=== PATIENT | male | born 1935 | race Caucasian/White ===

== ENCOUNTER 2018-03-26 10:39 | Day surgery (SDC) | payer MEDICARE ==
[2018-03-24 09:45] VITALS: BMI 27.1
[~2018-03-26 10:39] MED LIST: ALPRAZolam 0.25 MG TAB PO PRN; ALPRAZolam 0.5 MG TAB PO PRN; ASPIRIN 325 MG TAB PO STA; ATORVASTATIN 80 MG TAB PO STA; NITROGLYCERIN SL TABS 0.4 MG TAB SUBLINGUAL PRN; SODIUM CHLORIDE 0.9% 1,000 ML in EMPTY BAG 1 BAG IV ONE
[2018-03-26 11:10] LABS: Glucose,Whole Blood 132 mg/dL (75-99)
[2018-03-26] MEDS ORDERED: LIDOCAINE 2% INJ 20 MG/ML (20 ML MDV) ONE (13:17)
[2018-03-26] MEDS ORDERED: fentaNYL (PF) 50 MCG/ML 2 ML AMP ONE (13:21)
[2018-03-26] MEDS ORDERED: diphenhydrAMINE 50 MG/ML 1 ML VIAL ONE (13:21)
[2018-03-26] MEDS ORDERED: VERAPAMIL 2.5 MG/ML 2 ML AMP ONE (13:21)
[2018-03-26] MEDS ORDERED: HEPARIN SODIUM 1,000 UN/ML (10ML VL) ONE (13:21)
[2018-03-26] MEDS ORDERED: fentaNYL (PF) 50 MCG/ML 2 ML AMP IVP ONE (13:30)
[2018-03-26] MEDS ORDERED: diphenhydrAMINE 50 MG/ML 1 ML VIAL IVP ONE (13:30)
[2018-03-26] MEDS: LIDOCAINE 2% INJ 20 MG/ML SQ ONE ×2 (13:32→14:10)
[2018-03-26] MEDS ORDERED: VERAPAMIL SYRINGE (5 MG/10 ML) INTRAARTER ONE (13:38)
[2018-03-26] MEDS ORDERED: HEPARIN SODIUM 1,000 UN/ML (10ML VL) IV ONE (13:47)
[2018-03-26] MEDS ORDERED: IOPAMIDOL-370 125ML BTL INJ ONE (14:41)
[2018-03-26] MEDS ORDERED: RX INFO: IV CONTRAST WAS GIVEN 1 EACH MISC MISCELLANE PRN (14:49)
[2018-03-26] MEDS ORDERED: LORATADINE-PSEUDOEPH 5-120 MG 1 EACH TAB.ER.12H PO PRN (14:50)
[2018-03-26] MEDS ORDERED: SODIUM CHLORIDE 0.9% 1,000 ML IV SCH (15:00)
--- NOTE | 2018-03-26 17:58 | CC ---
CARDIAC CATHETERIZATION REPORT Mr. Gonzalez is an 82-year-old male known history of hypertension, hyperlipidemia, diabetes mellitus, history of chronic persistent atrial fibrillation, who has been complaining of progressive symptoms of dyspnea on exertion as well as chest discomfort. In view of that, recommendation made regarding cardiac catheterization. The procedures, risks and complication were discussed with the patient who is in full understanding and agreement. PROCEDURE: Patient was brought to the phlebotomy lab assistant in a fasting state after receiving fentanyl Benadryl and achieving moderate conscious sedated state. Using Xylocaine anesthesia and Seldinger technique, a 6-[place] sheath was introduced in the left radial artery. Right coronary angiography performed using care 5-[place] 4 bend right Amalia catheter. Images of the right coronary artery were performed. Multiple attempts to cannulate the left main using a 5-[place] 4 bend, a 6-[place] Humphrey, 6-[place] Nilda catheters were unsuccessful because of tortuosity at that point. Using Xylocaine anesthesia and Seldinger technique, a 6-[place] sheath was introduced in the right femoral artery. Attempts to selectively cannulate the left main using left Amalia 4.5, EBU 3.75 and EBU 4 were unsuccessful in selectively cannulating the left main, but were able to get the subselective images after and multiple images of the coronary arteries were obtained. Following that, catheter and sheath were removed. Hemostasis was obtained with deployment of an Angio-Seal in the right femoral artery and TR band on the left radial artery. The patient received 4500 units of intravenous heparin as well as intra- arterial verapamil. Of note, the patient had no chest discomfort. FINDINGS: 1. FLUOROSCOPY: There was severe calcification involving all the coronary arteries. 2. Left main: This is a large-sized vessel bifurcating left circumflex and left anterior descending artery. Left main coronary artery has no evidence of high-grade stenosis. 3. Left anterior descending artery: This is a large-sized vessel reaching to the apex with a wraparound apex segment with sub selectively cannulated, has intimal disease in mid segment of 30% to 40%. The rest of the vessel has no high-grade stenosis. 4. Left circumflex: This is a heavily calcified vessel giving rise to a large obtuse marginal branch. The vessel has intimal disease although was not selectively cannulated. 5. The right coronary artery: This vessel is heavily calcified. Totally occluded proximally with no significant antegrade flow. There are collaterals to the right coronary artery from the left coronary system as well as from the right coronary system. 6. LEFT VENTRICULOGRAM: Left ventriculogram was not performed. CONCLUSION: 1. Severely calcified coronary arteries. 2. Totally occluded right coronary artery, chronic. 3. Mild disease of the LAD and the left circumflex. RECOMMENDATION: The patient will continue medical therapy with aggressive coronary risk factor modifications. Depending on his progress, further recommendation will be made. Those findings and recommendation were discussed with the patient his family who are in full understanding and agreement. DURATION OF THE PROCEDURE: 72 minutes. MMJIMBOL / IJN: [id number] /
--- NOTE | 2018-03-26 18:04 | LTR ---
March 26, [address] Myers: I had the pleasure of performing cardiac catheterization on Mr. Gonzalez at [facility] on March 26 and full copy of procedure note will be forwarded to you. In brief, he was found to have a chronic occluded right coronary artery with [id number]-[id number] disease in the left coronary system. At this time, I will continue medical therapy with aggressive coronary risk modification being initiated. Thank you again for allowing me to participate in his care. Please feel free to call for any questions. Sincerely, SIMON / TRUONGN: [id number] /
[2018-03-26] MEDS ORDERED: DIGOXIN 125 MCG TAB PO SCH (18:30)
[2018-03-26] MEDS: CARVEDILOL 12.5 MG TAB PO SCH (20:20)
[2018-03-26] MEDS ORDERED: ATORVASTATIN 20 MG TAB PO SCH (21:00)
[2018-03-27 07:45] VITALS: BP 125/79; PULSE 76; RESP 16; TEMP 98.3
[2018-03-27] MEDS: CARVEDILOL 12.5 MG TAB PO SCH (08:11)
--- NOTE | 2018-03-27 08:38 | PN ---
PROGRESS NOTE Mr. Gonzalez is an 82-year-old male with known history of chronic atrial fibrillation, hypertension, hyperlipidemia, who presented with symptoms of chest discomfort, underwent cardiac catheterization that revealed severely calcified coronary arteries. There was difficulty selectively cannulating the left main, but there was a totally occluded right coronary artery with [id number] disease in the LAD and left circumflex. He was not discharged home yesterday because of some bleeding from the right groin. He is doing well this morning, denying any chest pain. No dizziness. No palpitation. He denies any nausea. He continued to be on Lipitor 20 mg daily, Coreg 25 mg twice a day, digoxin 0.125 mg daily, lisinopril 5 mg daily. PHYSICAL EXAMINATION: Blood pressure 125/70 with a heart rate in the 60s. LUNGS: Clear. HEART: Irregular, regular, S1, S2. No S3, no rub with a systolic murmur. ABDOMEN: Soft, nontender. Right groin, no hematoma. Left radial pulse intact. IMPRESSION: 1. Coronary artery disease with chronically occluded right coronary artery with calcified coronary arteries and mild to moderate disease in the LAD and the left circumflex. 2. Chronic atrial fibrillation. 3. Hypertension. 4. Hyperlipidemia. 5. Diabetes mellitus. RECOMMENDATION: Patient should be able to be discharged home today and followed as an outpatient. I will add to his regimen, isosorbide mononitrate, and he will resume his metformin in 48 hours. MMODL / IJN: [id number] /
[2018-03-27] MEDS ORDERED: LISINOPRIL 5 MG TAB PO SCH (09:00)
== END 2018-03-27 11:39 | disposition home or self-care (01) ==
LOC: CATHCVL 10:39 → 3OBS 14:36 → CATHCVL 03-27 11:39
PROVIDERS: ATTEND Internal Medicine Interventional Cardiology
DX: I25.110 Atherosclerotic heart disease of native coronary artery with unstable angina pectoris (principal); I25.82 Chronic total occlusion of coronary artery; I97.610 Postprocedural hemorrhage of a circulatory system organ or structure following a cardiac catheterization; I48.2 Chronic atrial fibrillation; E78.00 Pure hypercholesterolemia, unspecified; I10 Essential (primary) hypertension; E11.9 Type 2 diabetes mellitus without complications; Z82.49 Family history of ischemic heart disease and other diseases of the circulatory system; Z87.891 Personal history of nicotine dependence; Z79.01 Long term (current) use of anticoagulants; Z79.84 Long term (current) use of oral hypoglycemic drugs; Z79.899 Other long term (current) drug therapy
CPT/HCPCS: 93454; C1760; C1769 ×3; C1887 ×2; C1894 ×2; J2001; J1200; J3010; J1644; Q9967

== ENCOUNTER → 2018-05-29 | Outpatient (CLI) | payer MEDICARE ==
--- NOTE | 2018-05-29 15:33 | US ---
EXAMINATION TYPE: US carotid duplex BILAT DATE OF EXAM: 05/29/2018 COMPARISON: NONE CLINICAL HISTORY: G45.3 Amaurosis fugax. Left eye vision loss x 3 weeks ago for 30 minutes. No hx of tia. No HTN. EXAM MEASUREMENTS: RIGHT: Peak Systolic Velocity (PSV) cm/sec ----- Right CCA: 56.7 ----- Right ICA: 48.4 ----- Right ECA: 113.5 ICA/CCA ratio: 0.9 RIGHT: End Diastole cm/sec ----- Right CCA: 10.4 ----- Right ICA: 13.5 ----- Right ECA: 0.0 LEFT: Peak Systolic Velocity (PSV) cm/sec ----- Left CCA: 63.4 ----- Left ICA: 51.4 ----- Left ECA: 81.4 ICA/CCA ratio: 0.8 LEFT: End Diastole cm/sec ----- Left CCA: 11.9 ----- Left ICA: 15.6 ----- Left ECA: 2.1 VERTEBRALS (direction of flow): Right Vertebral: Antegrade Left Vertebral: Antegrade Rhythm: Arrhythmia Grayscale images show mild to moderate eccentric plaque centered at right carotid bulb level. There i s more moderate eccentric plaque at left carotid bulb level. Velocity measurements and ratios in visu alized portion of both internal carotid arteries however remains within normal limits. IMPRESSION: Moderate atherosclerotic change bilaterally, left greater than right, without hemodynamic ally significant stenosis clearly seen in either internal carotid artery
== END | disposition home or self-care (01) ==
LOC: RADUSWWP 14:35
PROVIDERS: ATTEND Family Medicine
DX: I65.23 Occlusion and stenosis of bilateral carotid arteries (principal)
CPT/HCPCS: 93880

== ENCOUNTER → 2019-07-22 | Outpatient (CLI) | payer MEDICARE ==
--- NOTE | 2019-07-22 14:24 | US ---
EXAMINATION TYPE: US carotid duplex BILAT DATE OF EXAM: 07/22/2019 COMPARISON: US CLINICAL HISTORY: I65.29 OCCLUSION AND STENOSIS OF CAROTID ARTERY; prior smoker 60years ago EXAM MEASUREMENTS: RIGHT: Peak Systolic Velocity (PSV) cm/sec ----- Right CCA: 51.2 ----- Right ICA: 45.9 ----- Right ECA: 160.9 ICA/CCA ratio: 0.9 RIGHT: End Diastole cm/sec ----- Right CCA: 5.8 ----- Right ICA: 10.1 ----- Right ECA: 0.0 LEFT: Peak Systolic Velocity (PSV) cm/sec ----- Left CCA: 62.7 ----- Left ICA: 51.3 ----- Left ECA: 133.5 ICA/CCA ratio: 0.8 LEFT: End Diastole cm/sec ----- Left CCA: 14.7 ----- Left ICA: 16.1 ----- Left ECA: 0.0 VERTEBRALS (direction of flow): Right Vertebral: Antegrade Left Vertebral: Antegrade Rhythm: Arrhythmia Irregular mixed plaque is noted in bilateral CCA, ECA and ICA with abnormally elevated PSV in bilater al ECA. IMPRESSION: 1. There is a irregular mixed plaque noted within the bilateral common carotid and ICAs with no defin ite significant hemodynamic stenosis by carotid Doppler ultrasound. Stenosis involving the external c arotid artery bilaterally suspected. 2. Correlate for cardiac dysrhythmia. Criteria for Assigning % of Stenosis / Diameter reduction (Estimation based on the indirect measurements of the internal carotid artery velocities (ICA PSV). 1. Normal (no stenosis)=ICA PSV < 125 cm/s: ratio < 2.0: ICA EDV<40 cm/s. 2. Less than 50% stenosis=ICA PSV < 125 cm/s: ratio < 2.0: ICA EDV<40 cm/s. 3. 50 to 69% stenosis=ICA PSV of 125 to 230 cm/s: ration 2.0 ? 4.0: ICA EDV 40-100 cm/s. 4. Greater than 70% stenosis to near occlusion= ICA PSV > 230 cm/s: ratio > 4.0: ICA EDV > 100 cm/s. 5. Near occlusion= ICA PSV velocities may be low or undetectable: variable ratio and ICA EDV. 6. Total occlusion=unable to detect flow.
== END | disposition home or self-care (01) ==
LOC: RADUSWWP 13:23
PROVIDERS: ATTEND Family Medicine
DX: I77.89 Other specified disorders of arteries and arterioles (principal)
CPT/HCPCS: 93880

== ENCOUNTER → 2020-01-18 | Outpatient (CLI) | payer MEDICARE ==
--- NOTE | 2020-01-18 15:45 | CT ---
EXAMINATION TYPE: CT chest wo con DATE OF EXAM: 01/18/2020 COMPARISON: NONE HISTORY: Other specified symptoms and signs involving circulatory & respiratory systems CT DLP: 371.80 mGycm. Automated Exposure Control for Dose Reduction was Utilized. TECHNIQUE: CT scan of the thorax is performed without IV contrast. FINDINGS: LUNGS: There is peripheral reticulation and fibrosis seen bilaterally with more diffuse fibrotic bob ges in the lower lungs near diaphragm as there are some areas of honeycombing identified. No bronchie ctatic change. There is occasional scattered thin-walled cyst most prominent in the bases. No pleural effusion or pneumothorax. No suspicious consolidation. MEDIASTINUM: Lack of IV contrast is noted to limit evaluation for mediastinal and especially hilar ad enopathy. There are no definitive greater than 1 cm hilar or mediastinal lymph nodes. Cardiomegaly. T iny pericardial effusion. Severe three-vessel coronary artery calcification and/or stents, correlate clinically. Enlarged pulmonary arteries, CT findings consistent with underlying pulmonary hypertensio n. OTHER: Severe multilevel anterior and lateral spurring in the spine could reflect DISH. IMPRESSION: Moderate to severe bilateral pulmonary fibrotic changes greatest in the lower lungs near diaphragm. Correlate for possible IPF. Background cardiomegaly and pulmonary artery hypertension.
== END | disposition home or self-care (01) ==
LOC: RADCTMAIN 13:06
PROVIDERS: ATTEND Internal Medicine
DX: J84.10 Pulmonary fibrosis, unspecified (principal); I51.7 Cardiomegaly; I27.21 Secondary pulmonary arterial hypertension; Z91.041 Radiographic dye allergy status
CPT/HCPCS: 71250

== ENCOUNTER → 2020-04-08 | Outpatient (CLI) | payer MEDICARE ==
--- NOTE | 2020-04-08 15:12 | MR ---
EXAMINATION TYPE: MR brain wo/w con DATE OF EXAM: 04/08/2020 COMPARISON: None HISTORY: Memory loss CONTRAST: Performed utilizing 9 mL intravenous Gadavist gadolinium contrast. TECHNIQUE: Multiplanar, multiecho imaging on a 3.0 Lurdes magnet is performed through the brain. Stud y is performed within 24 hours of arrival to the hospital. The craniovertebral junction is normal. The pituitary is normal. Diffusion-weighted imaging is performed. No abnormal hyperintensity is present to suggest an acute i ntracranial infarct or acute ischemic change. Patchy periventricular white matter hyperintensities are present, likely on the basis of chronic whit e matter ischemic changes. Ventricles and sulci are prominent for the patient age. No suspicious enhancement is evident. IMPRESSIONS: 1. Atrophy with multiple scattered periventricular white matter ischemic type changes.
== END | disposition home or self-care (01) ==
LOC: RADMRIMAIN 14:03
PROVIDERS: ATTEND Psychiatry & Neurology Neurology
DX: G31.9 Degenerative disease of nervous system, unspecified (principal); I67.82 Cerebral ischemia; R90.89 Other abnormal findings on diagnostic imaging of central nervous system; R41.3 Other amnesia
CPT/HCPCS: 70553; A9585

== ENCOUNTER 2020-05-29 17:38 | Inpatient (IN) | payer MEDICARE ==
[2020-05-29] MEDS ORDERED: NITROGLYCERIN SL TABS 0.4 MG TAB SUBLINGUAL PRN (18:03)
[2020-05-29] MEDS ORDERED: MORPHINE SULFATE 4 MG/ML SYRINGE IV PRN (18:12)
--- NOTE | 2020-05-29 18:19 | ED ---
SOB HPI - General Chief Complaint: Shortness of Breath Stated Complaint: Chest pain Time Seen by Provider: 05/29/20 17:54 Source: patient, RN notes reviewed, old records reviewed Mode of arrival: ambulatory Limitations: no limitations - History of Present Illness Initial Comments: This is a 84-year-old male DF for evaluation patient Dese for chest pain shortness of breath. Patient drove himself to Hospital of being seen at the facility earlier in the day. Patient having persistent shortness of breath here in the ER history of heart disease history of a fibrillation he is on anticoagulation. MD Complaint: shortness of breath, chest pain -: days(s) Severity: moderate Severity scale (1-10): 5 Quality: aching Consistency: constant Improves With: nothing Worsens With: nothing Known History Of: congestive heart failure Context: recent URI Associated Symptoms: chest pain, pain with inspiration, cough Treatments Prior to Arrival: none - Related Data Home Medications Medication Instructions Recorded Confirmed Atorvastatin [Lipitor] 20 mg PO HS 03/24/18 03/26/18 Carvedilol 25 mg PO BID 03/24/18 03/26/18 Digoxin [Digitek] 125 mcg PO PC-SUPPER 03/24/18 03/26/18 Lisinopril [Zestril] 5 mg PO DAILY 03/24/18 03/26/18 Loratadine-Pseudoeph 10-240 mg 1 each PO DAILY PRN 03/24/18 03/24/18 [Claritin-D 24 Hr] Rivaroxaban [Xarelto] 15 mg PO PC-SUPPER 03/24/18 03/24/18 Aubrey Hineso(Dose Unknown) 1 tab PO BID 03/24/18 03/26/18 metFORMIN HCL [Glucophage] 850 mg PO BID 03/24/18 03/24/18 Allergies Allergy/AdvReac Type Severity Reaction Status Date / Time iodine Allergy Rash/Hives Verified 05/29/20 17:48 Review of Systems ROS Statement: Those systems with pertinent positive or pertinent negative responses have been documented in the HPI. ROS Other: All systems not noted in ROS Statement are negative. Past Medical History Past Medical History: Atrial Fibrillation, Cancer, Chest Pain / Angina, Diabetes Mellitus, GI Bleed, Hyperlipidemia, Hypertension, Myocardial Infarction (OR), Osteoarthritis (OA) Additional Past Medical History / Comment(s): irregular heartbeat, hayfever, hx bleeding ulcers, skin cancer History of Any Multi-Drug Resistant Organisms: None Reported Past Surgical History: Heart Catheterization, Orthopedic Surgery, Tonsillectomy Additional Past Surgical History / Comment(s): skin cancer removed from face and scalp, surgery on rt arm and left leg after injury age 11, kat cataracts, heart cath 03/26/18 Past Anesthesia/Blood Transfusion Reactions: No Reported Reaction Past Psychological History: No Psychological Hx Reported Smoking Status: Former smoker Past Alcohol Use History: Rare Past Drug Use History: None Reported - Past Family History Mother Family Medical History: No Reported History General Exam Limitations: no limitations General appearance: alert, in no apparent distress Head exam: Present: atraumatic, normocephalic, normal inspection Eye exam: Present: normal appearance, PERRL, EOMI. Absent: scleral icterus, conjunctival injection, periorbital swelling ENT exam: Present: normal exam, mucous membranes moist Neck exam: Present: normal inspection. Absent: tenderness, meningismus, lymphadenopathy Respiratory exam: Present: normal lung sounds bilaterally. Absent: respiratory distress, wheezes, rales, rhonchi, stridor Cardiovascular Exam: Present: normal rhythm, bradycardia, normal heart sounds. Absent: systolic murmur, diastolic murmur, rubs, gallop, clicks GI/Abdominal exam: Present: soft, normal bowel sounds. Absent: distended, tenderness, guarding, rebound, rigid Extremities exam: Present: normal inspection, full ROM, normal capillary refill. Absent: tenderness, pedal edema, joint swelling, calf tenderness Back exam: Present: normal inspection Neurological exam: Present: alert, oriented X3, CN II-XII intact Psychiatric exam: Present: normal affect, normal mood Skin exam: Present: warm, dry, intact, normal color. Absent: rash Course Vital Signs 05/29/20 05/29/20 17:45 18:12 Temperature 97.7 F Pulse Rate 49 L 50 L Respiratory 20 18 Rate Blood Pressure 114/59 121/84 O2 Sat by Pulse 97 98 Oximetry - Reevaluation(s) Reevaluation #1: 05/29/20 18:18 Medical records reviewed Reevaluation #2: 05/29/20 18:18 Spoke with patient stock Another Facility regarding Findings and Evaluation - Consultations Consultation #1: spoke w Dr. Encinas who agrees to admit patient Medical Decision Making - Medical Decision Making 84 male DF for chest pain, patient was seen in her prior episode earlier in the day drove himself our facility for further cardiac evaluation. Patient troponin of point to another facility patient is on anticoagulation, will admit for cardiac evaluation and treatment - EKG Data -: EKG Interpreted by Me (EKG is A. fib with a 56 QRS 104 QTC 418) Critical Care Time Critical Care Time: Yes Total Critical Care Time: 31 Disposition Clinical Impression: Acute pulmonary edema, Congestive heart failure, Chest pain Disposition: ADMITTED IP TO THIS HOSP Condition: Fair Is patient prescribed a controlled substance at d/c from ED?: No Referrals: Rad Mar MD [Primary Care Provider] - 1-2 days
[2020-05-29 18:33] LABS: Basophils % (A) 1 %; Eosinophils # (A) 0.2 k/uL (0-0.7); Eosinophils % (A) 3 %; HCT 39.3 % (39.0-53.0); HGB 12.7 gm/dL (13.0-17.5); Lymphocytes # (A) 1.4 k/uL (1.0-4.8); Lymphocytes % (A) 24 %; MCH 31.1 pg (25.0-35.0); MCHC 32.2 g/dL (31.0-37.0); MCV 96.5 fL (80.0-100.0); Mean Platelet Volume 7.6; Monocytes # (A) 0.4 k/uL (0-1.0); Monocytes % (A) 6 %; Neutrophils # (A) 3.6 k/uL (1.3-7.7); Neutrophils % (A) 65 %; Platelet Count 121 k/uL (150-450); RBC 4.07 m/uL (4.30-5.90); RDW 13.4 % (11.5-15.5); WBC 5.6 k/uL (3.8-10.6)
[2020-05-29 18:42] LABS: ALT 29 U/L (4-49); AST 34 U/L (17-59); African American GFR (CKD) >90 (>60 ml/min/1.73 sqM); Albumin 4.1 g/dL (3.5-5.0); Alkaline Phosphatase 49 U/L (38-126); Anion Gap 9 mmol/L; Blood Urea Nitrogen 22 mg/dL (9-20); Carbon Dioxide 26 mmol/L (22-30); Chloride 101 mmol/L (98-107); Creatine Kinase 85 U/L (55-170); Glucose 168 mg/dL (74-99); Magnesium 1.7 mg/dL (1.6-2.3); Non-African American GFR(CKD) 90 (>60 ml/min/1.73 sqM); Potassium 4.4 mmol/L (3.5-5.1); Sodium 136 mmol/L (137-145); Total Bilirubin 1.6 mg/dL (0.2-1.3)
[2020-05-29 18:43] LABS: INR 1.2 (<1.2); Partial Thromboplastin Time 28.6 sec (22.0-30.0); Prothrombin Time 12.4 sec (9.0-12.0)
--- NOTE | 2020-05-29 19:05 | XR ---
EXAMINATION TYPE: XR chest 1V portable DATE OF EXAM: 05/29/2020 COMPARISON: NONE HISTORY: Chest pain TECHNIQUE: Single view FINDINGS: Heart is enlarged. There is pulmonary vascular congestion and interstitial edema. There is poor inspiration. There are chest leads. Thoracic aorta is atheromatous. IMPRESSION: Congestive heart failure with some pulmonary interstitial edema.
[2020-05-29] MEDS ORDERED: HEPARIN SOD,PORK IN 0.45% NACL 25,000 UNIT in 0.45% NACL 1 250ML.BAG IV SCH (21:45)
[2020-05-29] MEDS ORDERED: HEPARIN SODIUM,PORCINE 5,000 UNIT/ML 1 ML VIAL IV PRN (21:45)
[2020-05-29] MEDS ORDERED: HEPARIN SODIUM,PORCINE 5,000 UNIT/ML 1 ML VIAL IV ONE (21:45)
[2020-05-29] MEDS ORDERED: PANTOPRAZOLE 40 MG TABLET PO PRN (22:00)
[2020-05-29] MEDS ORDERED: DIGOXIN 125 MCG TAB PO SCH (22:00)
[2020-05-29] MEDS: carvediloL 12.5 MG TAB PO SCH (22:08)
[2020-05-29] MEDS: ATORVASTATIN 20 MG TAB PO SCH (22:09)
[2020-05-30 03:39] LABS: Basophils # (A) 0.1 k/uL (0-0.2); Basophils % (A) 1 %; Eosinophils # (A) 0.2 k/uL (0-0.7); Eosinophils % (A) 3 %; HCT 38.4 % (39.0-53.0); HGB 12.3 gm/dL (13.0-17.5); Lymphocytes # (A) 1.7 k/uL (1.0-4.8); Lymphocytes % (A) 30 %; MCH 30.6 pg (25.0-35.0); MCV 95.7 fL (80.0-100.0); Mean Platelet Volume 7.7; Monocytes # (A) 0.4 k/uL (0-1.0); Monocytes % (A) 7 %; Neutrophils # (A) 3.3 k/uL (1.3-7.7); Neutrophils % (A) 58 %; Platelet Count 122 k/uL (150-450); RBC 4.02 m/uL (4.30-5.90); RDW 13.4 % (11.5-15.5); WBC 5.7 k/uL (3.8-10.6)
[2020-05-30 06:08] LABS: Cholesterol 114 mg/dL (<200); HDL Cholesterol 33 mg/dL (40-60); LDL Cholesterol,Calculated 71 mg/dL (0-99); Triglycerides 49 mg/dL (<150)
[2020-05-30 06:09] LABS: Glucose,Whole Blood 122 mg/dL (75-99)
--- NOTE | 2020-05-30 07:21 | XR ---
EXAMINATION TYPE: XR chest 2V DATE OF EXAM: 05/30/2020 COMPARISON: 05/29/2020 HISTORY: Shortness of breath TECHNIQUE: Frontal and lateral views of the chest are obtained. FINDINGS: Scattered senescent parenchymal changes noted. Hyperinflation compatible with COPD. Cardiomegaly without pulmonary venous congestion and interstitial edema. Overall appearance is unchan ged. Mediastinal structures are stable and grossly unremarkable. No evidence for hilar prominence. Degenerative changes dorsal spine. IMPRESSION: 1. Cardiomegaly without pulmonary venous congestion and interstitial edema. Overall appearance is unc hanged.
[2020-05-30] MEDS ORDERED: ASPIRIN 325 MG TAB PO SCH (09:00)
[2020-05-30] MEDS ORDERED: SODIUM CHLORIDE 0.9% 1,000 ML in EMPTY BAG 1 BAG IV ONE (09:10)
[2020-05-30] MEDS ORDERED: ALPRAZolam 0.25 MG TAB PO PRN (09:10)
[2020-05-30] MEDS ORDERED: diphenhydrAMINE 50 MG/ML 1 ML VIAL IVP STA (09:11)
[2020-05-30] MEDS ORDERED: methylPREDNISolone SOD SUCCI 125 MG/2 ML VIAL IV STA (09:11)
[2020-05-30] MEDS ORDERED: FAMOTIDINE 20 MG/2 ML VIAL IV STA (09:11)
[2020-05-30] MEDS ORDERED: ASPIRIN 81 MG PO SCH (09:15)
[2020-05-30] MEDS ORDERED: ASPIRIN 325 MG TAB PO ONE (09:15)
--- NOTE | 2020-05-30 09:24 | ECHOF ---
Referral Reason:elevTrop MEASUREMENTS -------- HEIGHT: 180.3 cm WEIGHT: 91.6 kg BP: 121/60 RVIDd: 4.4 cm (< 3.3) IVSd: 1.3 cm (0.6 - 1.1) LVIDd: 5.7 cm (3.9 - 5.3) LVPWd: 1.8 cm (0.6 - 1.1) IVSs: 1.7 cm LVIDs: 3.8 cm LVPWs: 2.1 cm LAESV Index (A-L): 72.68 ml/m Ao Diam: 3.7 cm (2.0 - 3.7) AV Cusp: 2.5 cm (1.5 - 2.6) MV EXCURSION: 27.766 mm (> 18.000) MV EF SLOPE: 171 mm/s (70 - 150) EPSS: 1.2 cm AR PHT: 442 ms RAP: 20.00 mmHg RVSP: 90.24 mmHg FINDINGS -------- This was a technically adequate study. The left ventricular size is normal. There is moderate concentric left ventricular hypertrophy. T here is moderate global hypokinesis of LV . Overall left ventricular systolic function is mild-mode rately impaired with, an EF between 40 - 45 %. The right ventricle is severely enlarged. LA is severely dilated >40 ml/m2 The right atrium is markedly enlarged. Interatrial and interventricular septum intact. There is mild aortic valve sclerosis. There is mild aortic regurgitation. Mild mitral annular calcification present. Atbzzdlf-av-ohbond mitral regurgitation is present. Severe tricuspid regurgitation present. There is severe pulmonary hypertension. The right ventric ular systolic pressure, as measured by Doppler, is 90.24mmHg. Trace/mild (physiologic) pulmonic regurgitation. The aortic root size is normal. The inferior vena cava is dilated with poor inspiratory collapse which is consistent with estimated r ight atrial pressure of 20 mmHg. There is no pericardial effusion. CONCLUSIONS -------- 1. There is moderate concentric left ventricular hypertrophy. 2. There is moderate global hypokinesis of LV . 3. Overall left ventricular systolic function is mild-moderately impaired with, an EF between 40 - 45 %. 4. The right ventricle is severely enlarged. 5. LA is severely dilated >40 ml/m2 6. The right atrium is markedly enlarged. 7. There is mild aortic valve sclerosis. 8. There is mild aortic regurgitation. 9. Mild mitral annular calcification present. 10. Uqgqkcyu-fu-bhvhyh mitral regurgitation is present. 11. Severe tricuspid regurgitation present. 12. There is severe pulmonary hypertension. 13. Trace/mild (physiologic) pulmonic regurgitation. 14. The inferior vena cava is dilated with poor inspiratory collapse which is consistent with estimat ed right atrial pressure of 20 mmHg. 15. There is no pericardial effusion. SALT MANAGER: Lauren Steen RDCS
[2020-05-30] MEDS ORDERED: ASPIRIN 81 MG PO ONE (10:30)
[2020-05-30] MEDS: carvediloL 12.5 MG TAB PO SCH ×2 (10:43→20:53)
[2020-05-30] MEDS: ISOSORBIDE MONONITRATE ER 60 MG TAB.ER.24H PO SCH (10:43)
[2020-05-30] MEDS: lisinopriL 5 MG TAB PO SCH (10:44)
[2020-05-30] MEDS: SODIUM CHLORIDE 0.9% 1,000 ML IV SCH ×2 (10:48→20:55)
[2020-05-30 11:42] LABS: Glucose,Whole Blood 178 mg/dL (75-99)
--- NOTE | 2020-05-30 15:04 | CONS ---
CONSULTATION Lebron Gonzalez is a gentleman with a known history of CAD, known RCA occlusion, calcified coronaries, also has pulmonary fibrosis and he sees Dr. Rivera from a cardiac standpoint and Dr. Singletary from his primary care standpoint. This gentleman came into the hospital after having episodes of chest pain requiring 3-4 nitroglycerin. At the time of my evaluation, she is resting comfortably. His troponin is elevated suggestive of myocardial injury. EKG revealed atrial fibrillation, chronic with a nonspecific ST and T-wave changes. At the time of my evaluation, he is resting comfortably without any significant symptoms. His echo revealed normal global decrease in contractility, estimated ejection fraction of 45% range. He has significant severe pulmonary hypertension and underlying pulmonary fibrosis. This patient has known CAD, underwent cardiac cath by Dr. Rivera 2 years ago. PHYSICAL EXAMINATION: On examination, blood pressure is 120/70, pulse rate is 68 per minute, regular. HEENT: Unremarkable. Fundus was not examined by me. NECK: Supple, there is JVD of 1 cm. No carotid bruit. HEART: Exam reveals S1, S2 with a regular rhythm, short systolic murmur. Lungs reveal diminished air entry. Abdomen is soft, nontender. Lower extremities reveal normal pulses. No edema. Central nervous system is normal. EKG revealed atrial fib, nonspecific ST changes, controlled rate. IMPRESSION: 1. Chronic atrial fibrillation. 2. CAD, known RCA occlusion, calcified coronary arteries. 3. Non ST elevation HI with a troponin level of 1.175. 4. Pulmonary fibrosis. 5. Hypertension. 6. Hyperlipidemia. RECOMMENDATIONS: I am recommending that we discontinue digoxin, decrease aspirin to 81 mg daily. Recommend coronary angiography and I will speak to Dr. Rivera regarding cardiac cath to be done either today or tomorrow. Since patient's arrival, his Xarelto has been held and he has been on IV heparin. The patient also has underlying type 2 diabetes, which is under fair control. Hopefully, patient will have coronary angiography as of today or tomorrow. Based on finding, further recommendations. For now we will continue current medical regimen. MMODL / IJN: [id number] /
--- NOTE | 2020-05-30 15:14 | P.HPIM ---
History of Present Illness H&P Date: 05/30/20 Chief Complaint: Chest pain Patient is a 84-year-old male with a known history of paroxysmal atrial fibrillation, hypertension, hyperlipidemia, diabetes type 2 [id number] endent, history of NJ and prior cardiac catheterization without PCI in 2018 came to ER with complaints of chest pain retrosternal associated with shortness of breath. Patient has been having on and off chest pains lasting few seconds for a long time and had a prior cardiac catheterization. Yesterday while he was driving patient developed chest pain associated with shortness of breath. Chest pain is mainly squeezing type and without radiation. Patient developed short of breath which has been worsening which made him come to ER. No nausea vomiting or diaphoresis. No headache or dizziness or lightheadedness. Chest x-ray showed congestive heart failure with some pulmonary interstitial mik ma. EKG showed atrial fibrillation with slow ventricular response. Laboratory data showed RBC 5.6, hemoglobin 12.7, INR 1.2, sodium 136, potassium 4.4, BUN 22 and creatinine 2.64 Bilirubin is 1.6 total Troponin 0.184, 0.175 ProBNP 3780 Liver enzymes are within normal limits. LDL 71 2-D echocardiogram showed moderate concentric left ventricle is hypertrophic. Systolic function left ventricular with ejection fraction 40-45%. LA is severely dilated. Moderate to severe mitral regurgitation. Severe tricuspid regurgitation. Severe pulmonary hypertension. No pericardial effusion. Review of Systems Constitutional: Patient denies any fever or chills . No generalized weakness or weight loss. Abdomen: Patient denied nausea vomiting and diarrhea and abdominal pain. Cardiovascular: Patient does have chest pain with shortness of breath. no palp itations. Respiratory: patient denied any cough is from production. No shortness of breath Neurologic: Patient denied any numbness or tingling headache. Musculoskeletal: Patient denies any complaints of joint swelling or deformity. Skin: Negative Psychiatric: Negative Endocrine: No heat or cold intolerance. No recent weight gain. Genitourinary: No dysuria or hematuria. All other 14 point ROS negative except the above Past Medical History Past Medical History: Atrial Fibrillation, Cancer, Chest Pain / Angina, Diabetes Mellitus, GI Bleed, Hyperlipidemia, Hypertension, Myocardial Infarction (NJ), Osteoarthritis (OA) Additional Past Medical History / Comment(s): irregular heartbeat, hayfever, hx bleeding ulcers, skin cancer Last Myocardial Infarction Date:: unsure History of Any Multi-Drug Resistant Organisms: None Reported Past Surgical History: Heart Catheterization, Orthopedic Surgery, Tonsillectomy Additional Past Surgical History / Comment(s): skin cancer removed from face and scalp, surgery on rt arm and left leg after injury age 11, kat cataracts, heart cath 03/26/18 Past Anesthesia/Blood Transfusion Reactions: No Reported Reaction Past Psychological History: No Psychological Hx Reported Smoking Status: Former smoker Past Alcohol Use History: Rare Additional Past Alcohol Use History / Comment(s): quit smoking 60 yrs ago, smoked from age 14 to early 60's, 1 PPD Past Drug Use History: None Reported - Past Family History Mother Family Medical History: No Reported History Medications and Allergies Home Medications Medication Instructions Recorded Confirmed Type Atorvastatin [Lipitor] 20 mg PO HS 03/24/18 05/29/20 History Carvedilol 25 mg PO BID 03/24/18 05/29/20 History Digoxin [Digitek] 125 mcg PO HS 03/24/18 05/29/20 History Lisinopril [Zestril] 5 mg PO DAILY 03/24/18 05/29/20 History Rivaroxaban [Xarelto] 15 mg PO HS 03/24/18 05/29/20 History metFORMIN HCL [Glucophage] 850 mg PO BID 03/24/18 05/29/20 History Ammonium Lactate Lotion 1 applic TOPICAL DAILY PRN 05/29/20 05/29/20 History [Lac-Hydrin 12% Lotion] Isosorbide Mononitrate ER [Imdur] 60 mg PO DAILY 05/29/20 05/29/20 History Multivit-Min/FA/Lycopen/Lutein 1 tab PO DAILY 05/29/20 05/29/20 History [Centrum Silver Tablet] Omeprazole Magnesium [PriLOSEC OTC] 20 mg PO DAILY PRN 05/29/20 05/29/20 History Saw [place] 450mg 450 mg PO BID 05/29/20 05/29/20 History Allergies Allergy/AdvReac Type Severity Reaction Status Date / Time iodine Allergy Rash/Hives Verified 05/29/20 18:48 Physical Exam Vitals: Vital Signs Temp Pulse Pulse Resp BP BP Pulse Ox 05/30/20 03:25 98.1 F 69 18 121/60 96 05/29/20 23:50 98.1 F 56 L 17 102/63 96 07/12/20 20:35 97.7 F 66 18 129/75 98 05/29/20 20:12 97.7 F 52 L 18 126/99 98 05/29/20 18:12 50 L 18 121/84 98 05/29/20 17:45 97.7 F 49 L 20 114/59 97 Intake and Output 05/29/20 05/30/20 05/30/20 22:59 06:59 14:59 Intake Total 62.012 Balance 62.012 Intake: Intake, IV Titration 62.012 Amount Heparin Sod,Pork in 0.45% 62.012 NaCl 25,000 unit In 0.45 % NaCl 1 250ml.bag @ 11. 25 UNITS/KG/HR 10.002 mls /hr IV .Q24H [facility] Rx#: [id number] Other: Voiding Method Toilet Toilet # Voids 1 Weight 88.904 kg 91.8 kg PHYSICAL EXAMINATION: Patient is lying in the bed comfortably, no acute distress, awake alert and oriented.. HEENT: Normocephalic. Neck is supple. Pupils reactive. Nostrils clear. Oral cavity is moist. Ears reveal no drainage. Neck reveals no JVD, carotid bruits, or thyromegaly. CHEST EXAMINATION: Trachea is central. Symmetrical expansion. Bibasilar diminished air entry. Lung kebede clear to auscultation and percussion. CARDIAC: Normal S1, S2 with no gallops. Systolic murmur present, irregularly irregular rhythm ABDOMEN: Soft. Bowel sounds normal. No organomegaly. No abdominal bruits. Extremities: reveal no edema. No clubbing or cyanosis Neurologically awake, alert, oriented x3 with well-coordinated movements. No focal deficits noted Skin: No rash or skin lesions. Psychiatric: Coperative. Nonsuicidal Musculoskeletal: No joint swelling or deformity. Normal range of motion. Results CBC & Chem 7: 05/30/20 03:20 05/29/20 18:18 Labs: Abnormal Lab Results - Last 24 Hours (Table) 05/29/20 05/29/20 05/29/20 Range/Units 18:18 18:18 18:18 RBC 4.07 L (4.30-5.90) m/uL Hgb 12.7 L (13.0-17.5) gm/dL Hct (39.0-53.0) % Plt Count 121 L (150-450) k/uL PT 12.4 H (9.0-12.0) sec INR 1.2 H (<1.2) APTT (22.0-30.0) sec Sodium 136 L (137-145) mmol/L BUN 22 H (9-20) mg/dL Creatinine 0.64 L (0.66-1.25) mg/dL Glucose 168 H (74-99) mg/dL POC Glucose (mg/dL) (75-99) mg/dL Total Bilirubin 1.6 H (0.2-1.3) mg/dL Troponin I (0.000-0.034) ng/mL HDL Cholesterol (40-60) mg/dL 05/29/20 05/29/20 05/30/20 Range/Units 18:18 21:04 03:20 RBC (4.30-5.90) m/uL Hgb (13.0-17.5) gm/dL Hct (39.0-53.0) % Plt Count (150-450) k/uL PT (9.0-12.0) sec INR (<1.2) APTT (22.0-30.0) sec Sodium (137-145) mmol/L BUN (9-20) mg/dL Creatinine (0.66-1.25) mg/dL Glucose (74-99) mg/dL POC Glucose (mg/dL) (75-99) mg/dL Total Bilirubin (0.2-1.3) mg/dL Troponin I 0.184 H* 0.175 H* (0.000-0.034) ng/mL HDL Cholesterol 33 L (40-60) mg/dL 05/30/20 05/30/20 05/30/20 Range/Units 03:20 03:20 06:08 RBC 4.02 L (4.30-5.90) m/uL Hgb 12.3 L (13.0-17.5) gm/dL Hct 38.4 L (39.0-53.0) % Plt Count 122 L (150-450) k/uL PT (9.0-12.0) sec INR (<1.2) APTT 46.0 H (22.0-30.0) sec Sodium (137-145) mmol/L BUN (9-20) mg/dL Creatinine (0.66-1.25) mg/dL Glucose (74-99) mg/dL POC Glucose (mg/dL) 122 H (75-99) mg/dL Total Bilirubin (0.2-1.3) mg/dL Troponin I (0.000-0.034) ng/mL HDL Cholesterol (40-60) mg/dL Thrombosis Risk Factor Assmnt - DVT/VTE Prophylaxis DVT/VTE Prophylaxis: Pharmacologic Prophylaxis ordered - Choose All That Apply Each Risk Factor Represents 3 Points: Age 75 years or older Thrombosis Risk Factor Assessment Total Risk Factor Score: 3 Thrombosis Risk Factor Assessment Level: Moderate Risk Assessment and Plan Assessment: Chest pain with Elevated troponin level due to non-ST elevated NJ Acute CHF with mildly reduced ejection fraction and valvular heart disease. Moderate to severe MR and severe TR and severe pulmonary hypertension atrial fibrillation. Rate controlled. on anticoagulation with xarelto at home. History of prior [place] and cardiac catheterization in 2018 Diabetes type 2 Hyperlipidemia Hypertension Previous history of smoking History of bleeding ulcers DVT prophylaxis patient is already on full anticoagulation Plan: Patient will be continued on continued on telemetry monitoring. Troponin level is trending down. Patient was started on heparin drip and cardiology was consulted. Continue with aspirin statins and Coreg as well as Imdur. Cardiology is planning for catheterization. Further recommendations based on the clinical course. Prognosis is guarded at this time. Time with Patient: Greater than 30
--- NOTE | 2020-05-30 16:20 | P.CNPUL ---
History of Present Illness Consult date: 05/30/20 Reason for consult: dyspnea, pulmonary fibrosis, pulmonary hypertension History of present illness: 84-year-old male patient was Hospital as because of episodic chest pain. Troponins are positive and the patient has been diagnosed having an acute unstable angina, possible non-STEMI. He was extubated some limited shortness of breath also. He has a chronic cough. No significant sputum production. No hemoptysis. No pleurisy. His chest pain was squeezing without any radiation. His troponins were 0.18 and 0.17 respectively 2 with a proBNP level of 3780. Correlation profile was within normal. BUN is at 22 with a creatinine of 0.6 an d an echocardiogram showed an ejection fraction of 40-45% suggestive of mild systolic LV impairment. He has moderate to severe MR, severe tricuspid regurgitation severe pulmonary hypertension without any pericardial effusion. The patient has history of diabetes mellitus, hypertension and hyperlipidemia and coronary artery disease. He has also history of atrial fibrillation. In terms of the pulmonary status, the patient's chest x-ray showed chronic interstitial changes suggestive of pulmonary fibrosis. A computed tomography scan of the chest that was done on 01/18/2020 showed moderate to severe bilateral pulmonary fibrotic changes mainly in the lung bases subpleural location consistent with IPF. This is obviously a chronic finding. No utilization of amiodarone. No exposure to any birds, bats, pigeon's, parakeets. No exposure to any industrial organic origin organic dusts. No family history of Pulmicort he fibrosis. 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 No other new complaints otherwise for now per no swelling lower extremities. No syncope. Review of Systems Constitutional: Denies chills, Denies fever Eyes: denies as per HPI, denies blurred vision, denies bulging eye, denies decreased vision, denies diplopia, denies discharge, denies dry eye, denies irritation, denies itching, denies pain, denies photophobia, denies loss of peripheral vision, denies loss of vision, denies tunnel vision/blind spots Ears: deny: decreased hearing, ear discharge, earache, tinnitus Ears, nose, mouth and throat: Reports as per HPI Breasts: absent: as per HPI, gynecomastia Cardiovascular: Reports chest pain, Reports decreased exercise tolerance, Reports shortness of breath Respiratory: Reports cough Gastrointestinal: Reports as per HPI Genitourinary: Reports as per HPI Musculoskeletal: Reports as per HPI Musculoskeletal: absent: ankle pain, ankle stiffness, ankle swelling Integumentary: Reports as per HPI Neurological: Reports as per HPI Psychiatric: Reports as per HPI Endocrine: Reports as per HPI Hematologic/Lymphatic: Reports as per HPI Allergic/Immunologic: Reports as per HPI Past Medical History Past Medical History: Atrial Fibrillation, Coronary Artery Disease (CAD), Cancer, Chest Pain / Angina, Heart Failure, Diabetes Mellitus, GI Bleed, Hyperlipidemia, Hypertension, Myocardial Infarction ([place]), Osteoarthritis (OA) Additional Past Medical History / Comment(s): Coronary artery disease, previous RCA occlusion not amenable for stenting,, pulmonary fibrosis, hayfever, hx peptic ulcer disease, skin cancer, diabetes, hypertension, hyperlipidemia, chronic kidney disease Last Myocardial Infarction Date:: unsure History of Any Multi-Drug Resistant Organisms: None Reported Past Surgical History: Heart Catheterization, Orthopedic Surgery, Tonsillectomy Additional Past Surgical History / Comment(s): skin cancer removed from face and scalp, surgery on rt arm and left leg after injury age 11, kat cataracts, heart cath 03/26/18 Past Anesthesia/Blood Transfusion Reactions: No Reported Reaction Past Psychological History: No Psychological Hx Reported Smoking Status: Former smoker Past Alcohol Use History: Rare Additional Past Alcohol Use History / Comment(s): quit smoking 60 yrs ago, smoked from age 14 to early 60's, 1 PPD Past Drug Use History: None Reported - Past Family History Mother Family Medical History: No Reported History Medications and Allergies Home Medications Medication Instructions Recorded Confirmed Type Atorvastatin [Lipitor] 20 mg PO HS 03/24/18 05/29/20 History Carvedilol 25 mg PO BID 03/24/18 05/29/20 History Digoxin [Digitek] 125 mcg PO HS 03/24/18 05/29/20 History Lisinopril [Zestril] 5 mg PO DAILY 03/24/18 05/29/20 History Rivaroxaban [Xarelto] 15 mg PO HS 03/24/18 05/29/20 History metFORMIN HCL [Glucophage] 850 mg PO BID 03/24/18 05/29/20 History Ammonium Lactate Lotion 1 applic TOPICAL DAILY PRN 05/29/20 05/29/20 History [Lac-Hydrin 12% Lotion] Isosorbide Mononitrate ER [Imdur] 60 mg PO DAILY 05/29/20 05/29/20 History Multivit-Min/FA/Lycopen/Lutein 1 tab PO DAILY 05/29/20 05/29/20 History [Centrum Silver Tablet] Omeprazole Magnesium [PriLOSEC OTC] 20 mg PO DAILY PRN 05/29/20 05/29/20 History Saw [place] 450mg 450 mg PO BID 05/29/20 05/29/20 History Allergies Allergy/AdvReac Type Severity Reaction Status Date / Time iodine Allergy Rash/Hives Verified 05/29/20 18:48 Physical Exam Vitals: Vital Signs Temp Pulse Pulse Resp BP BP Pulse Ox 05/30/20 15:44 98 F 56 L 18 112/62 98 05/30/20 12:00 97.8 F 70 18 94/57 95 05/30/20 08:00 97 F L 66 18 125/69 98 05/30/20 03:25 98.1 F 69 18 121/60 96 05/29/20 23:50 98.1 F 56 L 17 102/63 96 05/29/20 20:35 97.7 F 66 18 129/75 98 05/29/20 20:12 97.7 F 52 L 18 126/99 98 05/29/20 18:12 50 L 18 121/84 98 05/29/20 17:45 97.7 F 49 L 20 114/59 97 Intake and Output 05/30/20 05/30/20 05/30/20 06:59 14:59 22:59 Intake Total 62.012 240 Balance 62.012 240 Intake: Intake, IV Titration 62.012 Amount Heparin Sod,Pork in 0.45% 62.012 NaCl 25,000 unit In 0.45 % NaCl 1 250ml.bag @ 11. 25 UNITS/KG/HR 10.002 mls /hr IV .Q24H [facility] Rx#: [id number] Oral 240 Other: Voiding Method Toilet # Voids 1 # Bowel Movements 0 Weight 91.8 kg The patient appeared well nourished and normally developed. Vital signs as documented. Head exam is unremarkable. No scleral icterus or corneal arcus noted. Neck is without jugular venous distension, thyromegaly, or carotid bruits. Carotid upstrokes are brisk bilaterally. Lungs are equal and symmetrical breath sounds and there are some coarse crackles in the mid and lower lung kebede bilaterally.. Cardiac exam reveals the PMI to be normally sized and situated. Rhythm is irregular and is slow consistent with atrial fibrillation.. First and second heart sounds normal. No murmurs, rubs or gallops. Abdominal exam reveals normal bowel sounds, no masses, no organomegaly and no aortic enlargement. Extremities are nonedematous and both femoral and pedal pulses are normal.Neurologically the patient is awake and alert and is no focal logical deficits.Examination of the skin revealed no evidence of significant rashes, suspicious appearing nevi or other concerning lesions. Results - Laboratory Findings CBC and BMP: 05/30/20 03:20 05/29/20 18:18 PT/INR, D-dimer PT 12.4 sec (9.0-12.0) H 05/29/20 18:18 INR 1.2 (<1.2) H 05/29/20 18:18 Abnormal lab findings: Abnormal Labs 05/29/20 05/29/20 05/29/20 18:18 18:18 18:18 RBC 4.07 L Hgb 12.7 L Hct Plt Count 121 L PT 12.4 H INR 1.2 H APTT Sodium 136 L BUN 22 H Creatinine 0.64 L Glucose 168 H POC Glucose (mg/dL) Total Bilirubin 1.6 H Troponin I HDL Cholesterol 05/29/20 05/29/20 05/30/20 18:18 21:04 03:20 RBC Hgb Hct Plt Count PT INR APTT Sodium BUN Creatinine Glucose POC Glucose (mg/dL) Total Bilirubin Troponin I 0.184 H* 0.175 H* HDL Cholesterol 33 L 05/30/20 05/30/20 05/30/20 03:20 03:20 06:08 RBC 4.02 L Hgb 12.3 L Hct 38.4 L Plt Count 122 L PT INR APTT 46.0 H Sodium BUN Creatinine Glucose POC Glucose (mg/dL) 122 H Total Bilirubin Troponin I HDL Cholesterol 05/30/20 11:40 RBC Hgb Hct Plt Count PT INR APTT Sodium BUN Creatinine Glucose POC Glucose (mg/dL) 178 H Total Bilirubin Troponin I HDL Cholesterol - Diagnostic Findings Chest x-ray: image reviewed Assessment and Plan Plan: 1 coronary artery disease with previous known RCA disease, presents with chest pain shortness of breath and troponin elevation, consider non-STEMI 2 CHF with mild impairment of left ventricle ejection fraction with an ejection fraction of 40-45% in addition to moderate MR and severe pulmonary hypertension 3 pulmonary fibrosis involving the lung bases, peripheral distribution consistent with IPF. No other obvious secondary causes contributing to his pulmonary fibrosis. Medication history, occupational history and review of system is negative for any rheumatologic diseases and the patient has no other comorbidities or exposures to contiguity to this pulmonary fibrosis. 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 I think his presentation is consistent with IPF. If the impairment of the lung capacity is mild, with probably monitor his progress with serial CAT scan imaging of pulmonary function test on a yearly basis. He is currently oxygenating well. Pulse ox on Saturday to 95-98%. The need for anti-fibrotic treatment will be discussed with him on later stage on outpatient basis. The role of anti-fibrotic treatment will be to slow down the progression of his pu lmonary fibrosis. Note that the patient has pulmonary hypertension which is probably related to his chronic lung disease and addition to valvular heart disease as noted on the echo. He is going to undergo a cardiac catheterization to assess and investigate his non-STEMI. Echo was noted. We'll continue to follow.
[2020-05-30] MEDS ORDERED: ENOXAPARIN 100 MG/ML SYRINGE SQ STA (16:24)
[2020-05-30 17:13] LABS: Glucose,Whole Blood 86 mg/dL (75-99)
[2020-05-30 20:47] LABS: Glucose,Whole Blood 115 mg/dL (75-99)
[2020-05-30] MEDS: ATORVASTATIN 20 MG TAB PO SCH (20:53)
[2020-05-31] MEDS: lisinopriL 5 MG TAB PO SCH (05:26)
[2020-05-31] MEDS: carvediloL 12.5 MG TAB PO SCH ×2 (05:27→20:30)
[2020-05-31] MEDS: ISOSORBIDE MONONITRATE ER 60 MG TAB.ER.24H PO SCH (05:27)
[2020-05-31] MEDS ORDERED: methylPREDNISolone SOD SUCCI 125 MG/2 ML VIAL IV ONE ×2 (06:00→06:05)
[2020-05-31] MEDS ORDERED: FAMOTIDINE 20 MG/2 ML VIAL IV ONE ×2 (06:00→06:05)
[2020-05-31] MEDS ORDERED: SODIUM CHLORIDE 0.9% 1,000 ML in EMPTY BAG 1 BAG IV ONE (06:00)
[2020-05-31] MEDS ORDERED: ASPIRIN 325 MG TAB PO ONE (06:00)
[2020-05-31] MEDS ORDERED: diphenhydrAMINE 50 MG/ML 1 ML VIAL IVP ONE ×2 (06:00→06:05)
[2020-05-31 06:07] LABS: Glucose,Whole Blood 142 mg/dL (75-99)
[2020-05-31 06:41] LABS: African American GFR (CKD) >90 (>60 ml/min/1.73 sqM); Anion Gap 7 mmol/L; Blood Urea Nitrogen 18 mg/dL (9-20); Calcium 8.6 mg/dL (8.4-10.2); Carbon Dioxide 27 mmol/L (22-30); Chloride 105 mmol/L (98-107); Glucose 151 mg/dL (74-99); Non-African American GFR(CKD) 85 (>60 ml/min/1.73 sqM); Potassium 4.7 mmol/L (3.5-5.1); Sodium 139 mmol/L (137-145)
[2020-05-31] MEDS ORDERED: LIDOCAINE 1% INJ 10MG/ML (20 ML MDV) ONE (11:04)
[2020-05-31] MEDS ORDERED: fentaNYL (PF) 50 MCG/ML 2 ML AMP ONE (11:04)
[2020-05-31] MEDS ORDERED: fentaNYL (PF) 50 MCG/ML 2 ML AMP IV ONE (11:26)
[2020-05-31] MEDS ORDERED: IV FLUID CONTINUATION 250 ML IV ONE (11:27)
[2020-05-31] MEDS ORDERED: LIDOCAINE 1% INJ 10MG/ML (20 ML MDV) SQ ONE (11:29)
[2020-05-31] MEDS ORDERED: IOPAMIDOL-370 100ML BTL INJ ONE ×3 (11:58→12:44)
--- NOTE | 2020-05-31 12:17 | PN ---
PROGRESS NOTE Mr. Gonzalez is in atrial fibrillation, controlled rate, doing well. He is going for a cardiac cath today. He has had no chest pain through the night. Vitals are stable. JVD 1 cm. No carotid bruit. S1-S2 heard normally, irregular rhythm noted, short systolic murmur noted. Lungs reveal improved air entry. Abdomen and lower extremity exam unchanged. Plan is to continue current medications, increase activity and he will have a cardiac cath by Dr. Rivera today. MMODL / IJN: [id number] /
[2020-05-31] MEDS ORDERED: RX INFO: IV CONTRAST WAS GIVEN 1 EACH MISC MISCELLANE PRN (12:39)
[2020-05-31] MEDS ORDERED: SODIUM CHLORIDE 0.9% 1,000 ML IV SCH (12:45)
[2020-05-31] MEDS: CLOPIDOGREL 75 MG TAB PO SCH (14:18)
--- NOTE | 2020-05-31 14:23 | CC ---
CARDIAC CATHETERIZATION REPORT Mr. Gonzalez is an 84-year-old male with a known history of coronary artery disease, history of atrial fibrillation who presented with symptoms of chest discomfort and minimal troponin elevation. He was evaluated by Dr. Cervantes and recommendation made regarding cardiac catheterization. The procedures, risks, and complication were discussed with the patient who is in full understanding and agreement. PROCEDURE: Patient was brought to laborer rags in a fasting semi-sedated state after receiving fentanyl and Benadryl and achieving moderate conscious sedated state. Using Xylocaine anesthesia and Seldinger technique, a 6-Hungarian sheath was introduced in the right femoral artery. That sheath was exchanged to a 25 cm sheath because of the severe tortuosity. Following that, right coronary angiography was performed using 6-Hungarian 4 bend right Amalia catheter. Images of the right coronary artery were performed. Following that, attempt to selectively cannulate the left main using a 6-Hungarian 4 bend left Amalia, 4.5 bend left Amalia, 5 bend left Amalia, LBU of 4, multipurpose B2, Q curve 4, Voda 4 were all unsuccessful in selectively cannulate but subselective images were obtained. The aortic valve was crossed and left ventricular end-diastolic pressure was calculated. Following that, catheter and sheath were removed. Hemostasis was obtained with deployment of an Angio-Seal. There was no immediate complication. Patient is returned to his room in stable condition. FINDINGS: FLUOROSCOPY: There was severe calcification involving all the coronary arteries. 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 LEFT MAIN: This is a short-size vessel, bifurcating into left circumflex, left anterior descending artery. Left main coronary artery has no clear evidence of significant obstructive disease. LEFT ANTERIOR DESCENDING ARTERY: This is a large-sized vessel, reaching toward the apex with a wraparound apex segment. The left anterior descending artery has an of an area of plaque in the mid segment and a heavily calcified segment about 40%. The rest of the vessel has no high-grade stenosis. LEFT CIRCUMFLEX: This vessel appears to be totally occluded proximally with retrograde feeling of the obtuse marginal branch. RIGHT CORONARY ARTERY: This vessel is totally occluded proximally. LEFT VENTRICULOGRAM: Left ventriculogram was not performed. HEMODYNAMICS: There was no gradient across the aortic valve. The left ventricular end- diastolic pressure is 8 to 14 mmHg. CONCLUSION: 1. Heavily calcified coronary arteries. 2. Appearance of chronically occluded right coronary artery and left circumflex. 3. Moderate disease in the mid LAD. 4. Severe tortuosity in the iliofemoral artery on the right side. RECOMMENDATION: In view of finding in the anatomy, I would recommend to continue medical therapy with maximizing the medical therapy. The patient is not a candidate for surgical intervention and because of his history of lung disease and pulmonary fibrosis at the same time, percutaneous revascularization is not recommended at this time. Depending on his progress, further recommendation will be made. Those findings and recommendation were discussed with the patient who is in full understanding and agreement. Duration of procedure is 63 minutes. MMODL / IJN: [id number] /
--- NOTE | 2020-05-31 15:53 | P.PN ---
Subjective Progress Note Date: 05/31/20 On today's evaluation of 05/31/2020, the patient is being seen for a follow-up. History of any chest pain. I saw him yesterday for shortness of breath and he has chronic pulmonary fibrosis and details are mentioned above in my history of present illness. The patient had an acute non-STEMI. He underwent a cardiac catheterization today. The patient was found to have heavily calcified coronary arteries. He has a chronically occluded RCA and circumflex. There is moderate disease in the mid LAD. Recommendation was essentially medical therapy with medication. He is not a candidate for surgical intervention at this point I'm specially with his chronic history of pulmonary fibrosis. The patient as stated is free of any chest pain. Doing well. No other new complaints otherwise for now. Objective - Vital Signs Vital signs: Vital Signs Temp 97.7 F 05/31/20 08:00 Pulse 80 05/31/20 12:39 Resp 16 05/31/20 12:15 BP 108/71 05/31/20 14:24 Pulse Ox 90 L 05/31/20 12:39 Intake & Output 05/30/20 05/31/20 05/31/20 18:59 06:59 18:59 Intake Total 420 50 Balance 420 50 Weight 93 kg Intake: IV 50 Oral 420 Other: Voiding Method Toilet # Voids 2 1 # Bowel Movements 0 - Exam The patient appeared well nourished and normally developed. Vital signs as documented. Head exam is unremarkable. No scleral icterus or corneal arcus noted. Neck is without jugular venous distension, thyromegaly, or carotid bruits. Carotid upstrokes are brisk bilaterally. Lungs are equal and symmetrical breath sounds and there are some coarse crackles in the mid and lower lung kebede bilaterally.. Cardiac exam reveals the PMI to be normally sized and situated. Rhythm is irregular and is slow consistent with atrial fibrillation.. First and second heart sounds normal. No murmurs, rubs or gallops. Abdominal exam reveals normal bowel sounds, no masses, no organomegaly and no aortic enlargement. Extremities are nonedematous and both femoral and pedal pulses are normal.Neurologically the patient is awake and alert and is no focal logical def icits.Examination of the skin revealed no evidence of significant rashes, suspicious appearing nevi or other concerning lesions. - Labs CBC & Chem 7: 05/30/20 03:20 05/31/20 06:05 Labs: Abnormal Lab Results - Last 24 Hours (Table) 05/30/20 05/31/20 05/31/20 Range/Units 20:45 06:05 06:06 Glucose 151 H (74-99) mg/dL POC Glucose (mg/dL) 115 H 142 H (75-99) mg/dL Assessment and Plan Plan: 1 coronary artery disease with previous known RCA disease, presents with chest pain shortness of breath and troponin elevation, consider non-STEMI. The patient underwent cardiac catheterization. The patient was found to have heavily calcified coronaries. Chronic occluded RCA and circumflex some mild disease involving the LAD. Medical treatment was advised. 2 CHF with mild impairment of left ventricle ejection fraction with an ejection fraction of 40-45% in addition to moderate MR and severe pulmonary hypertension 3 pulmonary fibrosis involving the lung bases, peripheral distribution consistent with IPF. No other obvious secondary causes contributing to his pulmonary fibrosis. Medication history, occupational history and review of system is negative for any rheumatologic diseases and the patient has no other comorbidities or exposures to contiguity to this pulmonary fibrosis. 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 I think his presentation is consistent with IPF. If the impairment of the lung capacity is mild, with probably monitor his progress with serial CAT scan imaging of pulmonary function test on a yearly basis. He is currently oxygenating well. Pulse ox on Saturday to 95-98%. The need for anti-fibrotic treatment will be discussed with him on later stage on outpatient basis. The role of anti-fibrotic treatment will be to slow down the progression of his pu lmonary fibrosis. Note that the patient has pulmonary hypertension which is probably related to his chronic lung disease and addition to valvular heart disease as noted on the echo. The results of the cardiac catheterization was noted. The patient is currently free of any chest pain or angina. We'll monitor his progress I will continue to follow. Not a good candidate for surgical intervention based on his age and comorbidities.
[2020-05-31] MEDS ORDERED: FUROSEMIDE 10 MG/ML 4 ML VIAL IV STA (16:07)
[2020-05-31] MEDS: SODIUM CHLORIDE 0.9% 1,000 ML IV SCH (16:12)
[2020-05-31 16:36] LABS: Glucose,Whole Blood 194 mg/dL (75-99)
--- NOTE | 2020-05-31 17:39 | XR ---
EXAMINATION TYPE: XR chest 1V DATE OF EXAM: 05/31/2020 COMPARISON: 05/30/2020 INDICATION: Short of breath, congestion TECHNIQUE: Single frontal view of the chest is obtained. FINDINGS: The heart size is moderately large. The pulmonary vasculature is prominent. Diffuse increased lung markings are present. IMPRESSION: 1. Clinical correlation recommended for congestive heart failure. Findings are worsening from compari son.
[2020-05-31] MEDS: INSULIN ASPART (NovoLOG) 100 UNIT/ML VIAL SQ SCH ×2 (17:48→23:04)
--- NOTE | 2020-05-31 20:10 | P.PN ---
Subjective Progress Note Date: 05/31/20 Principal diagnosis: Acute non-ST elevated MA Acute on chronic CHF with systolic dysfunction Pulmonary fibrosis Patient is a 84-year-old male with a known history of chronic atrial fibrillation, hypertension, hyperlipidemia, diabetes type 2 [id number] ndent, history of MA and prior cardiac catheterization without PCI in 2018 came to ER with complaints of chest pain retrosternal associated with shortness of breath. Patient has been having on and off chest pains lasting few seconds for a long time and had a prior cardiac catheterization. Yesterday while he was driving patient developed chest pain associated with shortness of breath. Chest pain is mainly squeezing type and without radiation. Patient developed short of breath which has been worsening which made him come to ER. No nausea vomiting or diaphoresis. No headache or dizziness or lightheadedness. Chest x-ray showed congestive heart failure with some pulmonary interstitial edema. EKG showed atrial fibrillation with slow ventricular response. Laboratory data showed RBC 5.6, hemoglobin 12.7, INR 1.2, sodium 136, potassium 4.4, BUN 22 and creatinine 2.64 Bilirubin is 1.6 total Troponin 0.184, 0.175 ProBNP 3780 Liver enzymes are within normal limits. LDL 71 2-D echocardiogram showed moderate concentric left ventricle is hypertrophic. Systolic function left ventricular with ejection fraction 40-45%. LA is severely dilated. Moderate to severe mitral regurgitation. Severe tricuspid regurgitation. Severe pulmonary hypertension. No pericardial effusion. 05/31/2020 Patient was admitted to the hospital due to chest pain and worsening shortness of breath and found to have elevated troponin level. Patient underwent cardiac catheterization today. Patient was found to have chronically occluded RCA and circumflex and moderate disease in the mid LAD. Maximal medical therapy was recommended by cardiology. Patient is being continued on aspirin statins, Plavix, lisinopril and Coreg, Imdur. Denied any complaints of chest pain. No nausea vomiting abdominal pain or diarrhea. Today afternoon patient became hypoxic with pulse ox around 90%. Was given IV Lasix. Chest x-ray clinical correlation recommended for congestive heart failure. Findings are worsening from comparison. Patient was given a dose of IV Lasix 40mg and will continue with 20mg IV Q12 Cardiology and pulmonary is following. patient will be transferred under Dr. Mar's care from tomorrow morning. Current medications reviewed. \ Objective - Vital Signs Vital signs: Vital Signs Temp 97.7 F 07/14/20 08:00 Pulse 93 05/31/20 16:00 Resp 22 05/31/20 16:00 BP 110/62 05/31/20 16:24 Pulse Ox 89 L 05/31/20 18:00 Intake & Output 05/31/20 05/31/20 06/01/20 06:59 18:59 06:59 Intake Total 800 Output Total 425 Balance 375 Weight 93 kg Intake: IV 50 Intake, IV Titration 450 Amount Sodium Chloride 0.9% 1, 450 000 ml @ 75 mls/hr IV . [id number] [facility] Rx#:[id number] Oral 300 Output: Urine 200 Post Void Residual 225 Other: Voiding Method Toilet # Voids 1 1 - Exam PHYSICAL EXAMINATION: Patient is lying in the bed comfortably, no acute distress, awake alert and oriented.. HEENT: Normocephalic. Neck is supple. Pupils reactive. Nostrils clear. Oral cavity is moist. Ears reveal no drainage. Neck reveals no JVD, carotid bruits, or thyromegaly. CHEST EXAMINATION: Trachea is central. Symmetrical expansion. Bibasilar diminished air entry. Crackles present. Use of accessory muscles. CARDIAC: Normal S1, S2 with no gallops. Systolic murmur present, irregularly irregular rhythm ABDOMEN: Soft. Bowel sounds normal. No organomegaly. No abdominal bruits. Extremities: reveal trace edema. No clubbing or cyanosis Neurologically awake, alert, oriented x3 with well-coordinated movements. No focal deficits noted Skin: No rash or skin lesions. Psychiatric: Coperative. Nonsuicidal Musculoskeletal: No joint swelling or deformity. Normal range of motion. - Labs CBC & Chem 7: 05/30/20 03:20 05/31/20 06:05 Labs: Abnormal Lab Results - Last 24 Hours (Table) 05/30/20 05/31/20 05/31/20 Range/Units 20:45 06:05 06:06 Glucose 151 H (74-99) mg/dL POC Glucose (mg/dL) 115 H 142 H (75-99) mg/dL 05/31/20 Range/Units 16:35 Glucose (74-99) mg/dL POC Glucose (mg/dL) 194 H (75-99) mg/dL Assessment and Plan Assessment: Chest pain with Elevated troponin level due to non-ST elevated MA Acute CHF with mildly reduced ejection fraction and valvular heart disease. Acute hypoxic respiratory failure secondary to CHF Possible underlying idiopathic pulmonary fibrosis Moderate to severe MR and severe TR and severe pulmonary hypertension Chronic atrial fibrillation. Rate controlled. on anticoagulation with xarelto at home. History of prior MA and cardiac catheterization in 2018 Diabetes type 2 Hyperlipidemia Hypertension Previous history of smoking History of bleeding ulcers DVT prophylaxis patient is already on full anticoagulation Plan: Patient will be continued on continued on telemetry monitoring. Troponin level is trending down. Patient was started on heparin drip and cardiology was consulted. Continue with aspirin statins and Coreg as well as Imdur. Patient is status post cardiac catheterization. Maximal medical therapy was recommended. Continue with current medications and Lasix IV 20 mg every 12 hours ordered. Cardiology and pulmonary is on board.. Further recommendations based on the clinical course. Prognosis is guarded at this time. Time with Patient: Greater than 30
[2020-05-31] MEDS: ATORVASTATIN 40 MG TAB PO SCH (20:29)
[2020-05-31] MEDS: FUROSEMIDE 10 MG/ML 2 ML VIAL IV SCH (20:29)
[2020-05-31] MEDS: ALPRAZolam 0.5 MG TAB PO PRN (20:30)
[2020-05-31 20:49] LABS: Glucose,Whole Blood 218 mg/dL (75-99)
[2020-06-01] MEDS: ALPRAZolam 0.5 MG TAB PO PRN (01:48)
[2020-06-01 06:05] LABS: Glucose,Whole Blood 197 mg/dL (75-99)
[2020-06-01] MEDS: INSULIN ASPART (NovoLOG) 100 UNIT/ML VIAL SQ SCH ×4 (06:22→20:24)
[2020-06-01 06:53] LABS: Calcium 8.5 mg/dL (8.4-10.2); Potassium 5.2 mmol/L (3.5-5.1)
[2020-06-01 07:30] LABS: Basophils % (A) 0 %; Eosinophils # (A) 0.1 k/uL (0-0.7); Eosinophils % (A) 1 %; HCT 41.7 % (39.0-53.0); Lymphocytes # (A) 0.4 k/uL (1.0-4.8); Lymphocytes % (A) 5 %; MCH 32.9 pg (25.0-35.0); MCHC 33.6 g/dL (31.0-37.0); MCV 97.9 fL (80.0-100.0); Mean Platelet Volume 8.5; Monocytes # (A) 0.4 k/uL (0-1.0); Monocytes % (A) 5 %; Neutrophils % (A) 90 %; Platelet Count 126 k/uL (150-450); RBC 4.26 m/uL (4.30-5.90); RDW 13.5 % (11.5-15.5); WBC 8.9 k/uL (3.8-10.6)
[2020-06-01] MEDS: CLOPIDOGREL 75 MG TAB PO SCH (07:45)
[2020-06-01] MEDS: FUROSEMIDE 10 MG/ML 2 ML VIAL IV SCH ×2 (07:45→20:24)
[2020-06-01] MEDS: ASPIRIN 81 MG PO SCH (07:45)
[2020-06-01] MEDS: carvediloL 12.5 MG TAB PO SCH (07:46)
[2020-06-01] MEDS: lisinopriL 5 MG TAB PO SCH (07:46)
[2020-06-01] MEDS: ISOSORBIDE MONONITRATE ER 60 MG TAB.ER.24H PO SCH (07:46)
[2020-06-01 12:16] LABS: Glucose,Whole Blood 231 mg/dL (75-99)
--- NOTE | 2020-06-01 12:19 | P.PN ---
Subjective Progress Note Date: 06/01/20 Principal diagnosis: Coronary artery disease with previous RCA disease, elevated troponin, rule out non-ST elevated ME On today's evaluation of 05/31/2020, the patient is being seen for a follow-up. History of any chest pain. I saw him yesterday for shortness of breath and he h as chronic pulmonary fibrosis and details are mentioned above in my history of present illness. The patient had an acute non-STEMI. He underwent a cardiac catheterization today. The patient was found to have heavily calcified coronary arteries. He has a chronically occluded RCA and circumflex. There is moderate disease in the mid LAD. Recommendation was essentially medical therapy with medication. He is not a candidate for surgical intervention at this point I'm specially with his chronic history of pulmonary fibrosis. The patient as stated is free of any chest pain. Doing well. No other new complaints otherwise for now. On 06/01/2020 patient seen in follow-up on selective care unit. Patient is lethargic on today's exam, apparently last night he was very confused and combative, he had Xanax given to him. Patient is status post cardiac catheterization yesterday on 05/31/2020 and patient was found to have Heavily calcified coronary arteries, chronically occluded RCA and left circumflex, moderate disease in the mid LAD, and severe tortuosity in the iliofemoral artery on the right side, cardiology recommended maximizing medical treatment. Patient is not a candidate for surgical intervention. Patient is on 4 L of oxygen the pulse ox 93%, blood pressure is 95/65, patient is afebrile, he does desat with exertion, but patient does have underlying history of pulmonary fibrosis. Repeat chest x-ray yesterday showed diffuse increased lung markings, consistent with underlying history of pulmonary fibrosis. Today's labs have been reviewed, showing whippets locally 0.9, hemoglobin is 14, sodium is 139, potassium 5.2, the rest of electrolytes were within normal limits, BUN is increased up to 34, and creatinine is 1.15. Diuretics have been started. Lung sounds are dim inished, with basilar crackles. Patient is sleeping in the recliner, with supervisor safety deposit at the bedside Objective - Vital Signs Vital signs: Vital Signs Temp 97.8 F 06/01/20 08:00 Pulse 83 06/01/20 08:00 Resp 18 06/01/20 08:00 BP 95/65 07/15/20 08:00 Pulse Ox 93 L 06/01/20 08:00 Intake & Output 05/31/20 06/01/20 06/01/20 18:59 06:59 18:59 Intake Total 800 230 Output Total 425 350 Balance 375 -350 230 Weight 95.6 kg Intake: IV 50 Intake, IV Titration 450 Amount Sodium Chloride 0.9% 1, 450 000 ml @ 75 mls/hr IV . [id number] [facility] Rx#:[id number] Oral 300 230 Output: Urine 200 350 Post Void Residual 225 Other: Voiding Method Toilet Urinal Urinal # Voids 1 1 # Bowel Movements 0 - Exam GENERAL EXAM: Lethargic, 84-year-old white male on 4 L of oxygen with pulse ox of 91-93% with a supervisor safety deposit at the bedside, comfortable in no apparent distress. HEAD: Normocephalic/atraumatic. EYES: Normal reaction of pupils, equal size. Conjunctiva pink, sclera white. NOSE: Clear with pink turbinates. THROAT: No erythema or exudates. NECK: No masses, no JVD, no thyroid enlargement, no adenopathy. CHEST: No chest wall deformity. Symmetrical expansion. LUNGS: Equal air entry with bibasilar rales, no rhonchi no wheezing CVS: Regular rate and rhythm, normal S1 and S2, no gallops, no murmurs, no rubs ABDOMEN: Soft, nontender. No hepatosplenomegaly, normal bowel sounds, no g uarding or rigidity. EXTREMITIES: No clubbing, no edema, no cyanosis, 2+ pulses and upper and lower extremities. MUSCULOSKELETAL: Muscle strength and tone normal. SPINE: No scoliosis or deformity SKIN: No rashes CENTRAL NERVOUS SYSTEM: Lethargic, confused. No focal deficits, tone is normal in all 4 extremities. - Labs CBC & Chem 7: 06/01/20 05:47 06/01/20 05:47 Labs: Abnormal Lab Results - Last 24 Hours (Table) 05/31/20 05/31/20 06/01/20 Range/Units 16:35 20:47 05:47 RBC (4.30-5.90) m/uL Plt Count (150-450) k/uL Neutrophils # (1.3-7.7) k/uL Lymphocytes # (1.0-4.8) k/uL Potassium 5.2 H (3.5-5.1) mmol/L BUN 34 H (9-20) mg/dL Glucose 190 H (74-99) mg/dL POC Glucose (mg/dL) 194 H 218 H (75-99) mg/dL 06/01/20 06/01/20 Range/Units 05:47 06:04 RBC 4.26 L (4.30-5.90) m/uL Plt Count 126 L (150-450) k/uL Neutrophils # 8.0 H (1.3-7.7) k/uL Lymphocytes # 0.4 L (1.0-4.8) k/uL Potassium (3.5-5.1) mmol/L BUN (9-20) mg/dL Glucose (74-99) mg/dL POC Glucose (mg/dL) 197 H (75-99) mg/dL Assessment and Plan Plan: Assessment: 1 coronary artery disease with previous known RCA disease, presents with chest pain shortness of breath and troponin elevation, consider non-STEMI. The patient underwent cardiac catheterization. The patient was found to have heavily calcified coronaries. Chronic occluded RCA and circumflex some mild disease involving the LAD. Medical treatment was advised. 2 CHF with mild impairment of left ventricle ejection fraction with an ejection fraction of 40-45% in addition to moderate MR and severe pulmonary hypertension 3 pulmonary fibrosis involving the lung bases, peripheral distribution consistent with IPF. No other obvious secondary causes contributing to his pulmonary fibrosis. Medication history, occupational history and review of system is negative for any rheumatologic diseases and the patient has no other comorbidities or exposures to contiguity to this pulmonary fibrosis. 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 Avoid sedatives, hypnotics, avoid benzodiazepines. We'll discontinue Xanax, maintain safety precautions, maintain supervisor safety deposit at the bedside. Monitor electrolytes and renal profile. I performed a history & physical examination of the patient and discussed their management with my nurse practitioner, Luz Elena Astudillo. I reviewed the nurse practitioner's note and agree with the documented findings and plan of care. Lung sounds are positive for bibasilar crackles. The findings and the impression was discussed with the patient. I attest to the documentation by the nurse practitioner. Time with Patient: Less than 30
--- NOTE | 2020-06-01 14:11 | CDI ---
Documentation Clarification Form Date: 06/01/2020 01:49:05 PM From: Isa Waddell RN CCDS Admit Date: 05/29/2020 06:03:00 PM Patient Name: Lebron Gonzalez Visit Number: [id number] Discharge Date: ATTENTION: The Clinical Documentation Specialists (CDI) and [facility] Coding Staff appreciate your assistance in clarifying documentation. Please respond to the clarification below the line at the bottom and electronically sign. The CDI & [facility] Coding staff will review the response and follow-up if needed. Please note: Queries are made part of the Legal Health Record. If you have any questions, please contact the author of this message via ITS. Dr. Cam Monten[place] Encephalopathy is documented in the pulmonary progress note 06/01 History/Risk Factors: 84-year-old male presented to the ED with chest pain and shortness of breath. Medical history Atrial Fibrillation; Angina; DM, HTN, HLD and previous KS. Patient had a Cardiac Catherization on 05/31. Clinical Indicators: 05/31 22:30 Xanax 0.5 po Administered 06/01 01:48 Xanax 0.5 po Administered Pulmonary progress note 06/01 Patient is lethargic on todays exam, apparently last night he was very confused and combative, he had Xanax given to him. Treatment: Xanax discontinued 06/01/20 In your professional opinion, can you please clarify the specific type of Encephalopathy, if known? Metabolic Encephalopathy Toxic Encephalopathy Other, please specify Unable to determine (Last Revision: February 2018) Unable to determine MTDD
--- NOTE | 2020-06-01 14:14 | PN ---
PROGRESS NOTE Mr. Gonzalez had a cardiac cath yesterday, which revealed that he had significant CAD, total occlusion of the right coronary artery and also significant disease, probably in the circumflex as well. It was difficult to cannulate the coronary arteries. The patient has heavily calcified coronary arteries. Options are limited. We will just optimize medical therapy. This was explained to the patient. He had some shortness of breath yesterday but he is doing much better. Plan is to continue current medical regimen and the patient understands that he will have angina with mild to moderate activity but options are somewhat limited. We will pursue medical therapy. Vitals are stable, JVD 1 cm, no carotid bruit. There is a systolic murmur unchanged. Lungs reveal diminished air entry, abdomen and lower extremity exam unchanged. Will optimize medical therapy, increase activity, potassium is slightly higher. I will add Ranexa. Check a CBC, BMP, increase activity and see how he does. MMODL / IJN: [id number] /
--- NOTE | 2020-06-01 14:37 | P.PN ---
Subjective Progress Note Date: 06/01/20 Principal diagnosis: Diagnosis: #1 abnormal troponin, abnormal proBNP, with the acute coronary artery syndrome. #2 status post cardiac catheterization by , interventional c ardiologist, supple occluded disease of coronary artery, left circumflex artery and right coronary artery. #3 recalcification of all coronary arteries. #4 right iliofemoral artery severe [id number] . #5 hypoxemia associated with bilateral IPF seen by Dr. steele. #6 diabetes mellitus2 currently on insulin to scale. #7 acute renal injury with drop off his estimated glomerular filtration rate from 90 to 59 consultation with nephrology requested. #8 ischemic cardiomyopathy with impaired ejection fraction 40%. #9 hyperlipoidemia, potassium 5.2, decreased to the lisinopril to 2.5 mg tablet evaluated by nephrology. #10 hypotension, Dr. LITA Cervantes child welfare specialist did decrease Coreg. #11 severe pulmonary hypertension. #12 valvular heart disease, left atrial severe dilated dictation, right ventricle severe enlargement right atrial dilated dictation mild aortic regurg, moderate to severe mitral regurg, severe tricuspid regurg, mild aortic regurg, mild aortic valve sclerosis. Left ventricular concentric hypertrophy. Global hypokinesis of the left ventricle. #13 underlying dementia, versus cognitive function impairment. #14 history of hypertension and currently he is hypotensive with blood pressure 95/65 #14 acute hypoxic respiratory failure on oxygen and monitored by , Dr. Chen pulmonary and critical care his primary pulmonary physician. This is dictation on the progress note, first day of service after patient transferred his care to me from hospitalist group. Extended visit Patient initially admitted under our care of the hospitalist of Dr. Encinas, with the underlying acute coronary syndrome with the elevated troponin, elevated pro- BMP, severe shortness of breath with congestive heart failure. With the underlying mostly acute systolic. Patient admitted to the monitor car operator floor followed by the hospitalist. And today patient transferred to my care on the date of 06/01/2020. His didn't call the office several time to inquire about her , however we did not have any notification from the hospitalist group or the hospital for request outpatient to be seen until yesterday. On today examination and evaluation, I did spoke with Dr. LITA Cervantes who is record center specialist and he is a rounding radiologist. He adjusted his medication, as the patient with underlying multiple medical illness, and the hypotension. Patient also had acute type toxic respiratory failure and he is currently on oxygen. He is seen and followed as outpatient by Dr. Lopez because of pulmonary fibrosis IPF. Patient also underwent cardiac catheterization by Dr. Lambert record center specialist on 05/31/2020 with the underlying recommendation of medical therapy and the patient could not handle any surgical intervention because of the pulmonary fibrosis and impaired ejection fraction and 2 vessel occluded disease beside the calcification, also diabetes mellitus type 2 currently on insulin to scale. Reviewing today laboratory: Found that his potassium 5.2, hyperkalemia, patient on lisinopril 5 mg, we decrease that to 2.5 and also we consulted nephrology doctor is out far/Dr. Contreras for evaluation and treatment with the significant drop also has estimated GFR for non- from 90-59 with the underlying acute kidney injury probably. Dr. LITA Cervantes cardiology he also decreased his Coreg to 12.5 and monitoring the patient to see the improvement. His diabetes mellitus with a blood sugar/glucose point of care ranging between [phone] which is uncontrolled and we'll be obtaining hemoglobin A1c for clarification of the chronicity of diabetes mellitus meanwhile patient on insulin to scale, also patient was received a steroid on admission which subsequently discontinued. Laboratory today on 06/01/2020 indicating WBC 8.9, hemoglobin of 14, hematocrit 41.7, platelet 126. Patient on novel anticoagulant. His sodium 139 and a potassium 5.2 chloride 103, and carbon dioxide 26, BUN of 34 and creatinine 1.15 with the morning glucose 190. His calcium is 8.5. On examination today: Patient is conscious alert he'll recognize my name however he had some confusion and it could be from his cognitive function impairment versus delirium. His still bluish discolored and Lasix associated with the pulmonary artery hypertension, hypoxemia, interstitial lung fibrosis. The head was normocephalic atraumatic and the pupil was reactive oropharynx negative with natural teeth. Neck was supple no JVD no thyromegaly. The chest was bilateral rhonchi's and Velcro in the lower basis with COPD and decreased air entry. Heart chronic atrial fibrillation and he has been on novel anticoagulant Xarelto also was at home 15 mg once a day. With impaired ejection fraction and the PMI in the fifth intercostal space outside midclavicular line with the underlying cardiomegaly. The abdomen was soft positive bowel sounds no tenderness in the four-quadrant. Extremities no edema and positive pulses. 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 #4 impaired ejection fraction to 40% in association with valvular heart disease #5 diabetes mellitus type 2 #6 occlusive coronary artery disease off 2 vessels left circumflex artery and right coronary artery total occlusion. #7 patient is not a candidate for surgical intervention due to underlying lung disease with IPF with the recommendation from cardiology with continue medical therapy. #8 patient blood sugar, diabetes mellitus was fairly controlled well with metformin 850 mg twice a day for currently he is on insulin to scale with the uncontrolled diabetes mellitus. #9 and he has history of benign prostatic hypertrophy. #10 acute hypoxic respiratory failure in association of IPF and the hypoxemia and increase oxygen level per nasal cannula associated with shortness of breath. #11 hyper lipidemia. Plan: #1 adjustment on his vital sign and the blood pressure #2 consultation with nephrology with the drop off his estimated glomerular filtration rate significantly with that acute kidney injury. #3 continue pulmonary and cardiology recommendation #4 patient is high risk with the multiple medical problems Objective - Vital Signs Vital signs: Vital Signs Temp 97.8 F 06/01/20 08:00 Pulse 83 06/01/20 08:00 Resp 18 06/01/20 08:00 BP 95/65 06/01/20 08:00 Pulse Ox 93 L 06/01/20 08:00 Intake & Output 05/31/20 06/01/20 06/01/20 18:59 06:59 18:59 Intake Total 800 230 Output Total 425 350 Balance 375 -350 230 Weight 95.6 kg Intake: IV 50 Intake, IV Titration 450 Amount Sodium Chloride 0.9% 1, 450 000 ml @ 75 mls/hr IV . [id number] [facility] Rx#:[id number] Oral 300 230 Output: Urine 200 350 Post Void Residual 225 Other: Voiding Method Toilet Urinal Urinal # Voids 1 1 # Bowel Movements 0 - Labs CBC & Chem 7: 06/01/20 05:47 06/01/20 05:47 Labs: Abnormal Lab Results - Last 24 Hours (Table) 05/31/20 05/31/20 06/01/20 Range/Units 16:35 20:47 05:47 RBC (4.30-5.90) m/uL Plt Count (150-450) k/uL Neutrophils # (1.3-7.7) k/uL Lymphocytes # (1.0-4.8) k/uL Potassium 5.2 H (3.5-5.1) mmol/L BUN 34 H (9-20) mg/dL Glucose 190 H (74-99) mg/dL POC Glucose (mg/dL) 194 H 218 H (75-99) mg/dL 06/01/20 06/01/20 06/01/20 Range/Units 05:47 06:04 12:04 RBC 4.26 L (4.30-5.90) m/uL Plt Count 126 L (150-450) k/uL Neutrophils # 8.0 H (1.3-7.7) k/uL Lymphocytes # 0.4 L (1.0-4.8) k/uL Potassium (3.5-5.1) mmol/L BUN (9-20) mg/dL Glucose (74-99) mg/dL POC Glucose (mg/dL) 197 H 231 H (75-99) mg/dL
[2020-06-01 17:25] LABS: Glucose,Whole Blood 204 mg/dL (75-99)
[2020-06-01] MEDS: RIVAROXABAN 15 MG TAB PO SCH (17:34)
[2020-06-01 19:59] LABS: Glucose,Whole Blood 229 mg/dL (75-99)
[2020-06-01] MEDS: ATORVASTATIN 40 MG TAB PO SCH (20:24)
[2020-06-01] MEDS: RANOLAZINE 500 MG TAB.ER.12H PO SCH (20:24)
[2020-06-01] MEDS ORDERED: carvediloL 12.5 MG TAB PO SCH (21:00)
[2020-06-02 00:52] LABS: Hemoglobin A1C 6.8 % (4.0-6.0)
[2020-06-02 04:06] VITALS: RESP 18
[2020-06-02 06:07] LABS: Glucose,Whole Blood 156 mg/dL (75-99)
[2020-06-02] MEDS: INSULIN ASPART (NovoLOG) 100 UNIT/ML VIAL SQ SCH ×4 (06:27→22:27)
[2020-06-02 08:08] LABS: Calcium 8.2 mg/dL (8.4-10.2); Potassium 4.9 mmol/L (3.5-5.1)
[2020-06-02 08:14] LABS: Basophils % (A) 0 %; Eosinophils % (A) 0 %; HCT 38.1 % (39.0-53.0); HGB 12.3 gm/dL (13.0-17.5); Lymphocytes % (A) 11 %; MCH 31.1 pg (25.0-35.0); MCHC 32.4 g/dL (31.0-37.0); Mean Platelet Volume 8.4; Monocytes # (A) 0.5 k/uL (0-1.0); Monocytes % (A) 5 %; Neutrophils # (A) 7.3 k/uL (1.3-7.7); Neutrophils % (A) 82 %; Platelet Count 107 k/uL (150-450); RBC 3.97 m/uL (4.30-5.90); RDW 13.6 % (11.5-15.5); WBC 8.9 k/uL (3.8-10.6)
[2020-06-02] MEDS ORDERED: SODIUM CHLORIDE 0.9% 1,000 ML IV SCH (08:15)
[2020-06-02] MEDS: ISOSORBIDE MONONITRATE ER 60 MG TAB.ER.24H PO SCH (09:29)
[2020-06-02] MEDS: RANOLAZINE 500 MG TAB.ER.12H PO SCH ×2 (09:29→22:27)
[2020-06-02] MEDS: MULTIVITAMINS, THERA 1 EACH TAB PO SCH (09:29)
[2020-06-02] MEDS: ASPIRIN 81 MG PO SCH (09:30)
--- NOTE | 2020-06-02 09:57 | XR ---
EXAMINATION TYPE: XR chest 2V DATE OF EXAM: 06/02/2020 COMPARISON: 05/31/2020 HISTORY: 84-year-old male follow-up fluid overload TECHNIQUE: PA and lateral views FINDINGS: Heart remains mildly enlarged. Diffuse interstitial opacities persist with improvement in previous co nfluent airspace disease. No sizable effusion on the frontal view IMPRESSION: Improving aeration but with residual interstitial opacities. Likely persistent but improving pulmonar y edema.
--- NOTE | 2020-06-02 10:05 | P.NPCON ---
History of Present Illness - Reason for Consult acute renal failure - History of Present Illness Reason for consultation: Acute kidney injury History of present illness: Patient is a 84-year-old male seen in renal consultation for acute kidney injury. Patient's creatinine on admission on May 29 was 0.64 and is up to 1.23 today. Patient presented to the hospital with shortness of breath. Patient states he had to wake up in the middle the night and then spent dressing of the night on a chair due to shortness of breath. He denies any edema in his lower extremity is. He admits to good urine output. No hematuria or dysuria. No vomiting or diarrhea. Patient's ejection fraction is 40-45% with severe tricuspid regurgitation and pulmonary hypertension. Also noted to have moderate to severe mitral regurgitation. He underwent cardiac catheterization on May 31 which revealed severely calcified vessels. He is being treated medically. Hemodynamically stable other blood pressure is on the lower side. Chest x-ray this morning revealed vascular congestion. He is maintained on IV Lasix 20 mg twice daily. He is maintained on low-dose lisinopril. No active complaints. No fever or chills. No abdominal pain. Denies family history of renal disease. Vital signs are stable. General: The patient appeared well nourished and normally developed. HEENT: Head exam is unremarkable. Neck is without jugular venous distension. LUNGS: Breath sounds decreased. HEART: Rate and Rhythm are regular. Murmur noted. ABDOMEN: Soft, nontender. EXTREMITITES: No clubbing, cyanosis, or edema. Past Medical History Past Medical History: Atrial Fibrillation, Coronary Artery Disease (CAD), Cancer, Chest Pain / Angina, Heart Failure, Diabetes Mellitus, GI Bleed, Hyp erlipidemia, Hypertension, Myocardial Infarction ([place]), Osteoarthritis (OA) Additional Past Medical History / Comment(s): Coronary artery disease, previous RCA occlusion not amenable for stenting,, pulmonary fibrosis, hayfever, hx peptic ulcer disease, skin cancer, diabetes, hypertension, hyperlipidemia, chronic kidney disease Last Myocardial Infarction Date:: unsure History of Any Multi-Drug Resistant Organisms: None Reported Past Surgical History: Heart Catheterization, Orthopedic Surgery, Tonsillectomy Additional Past Surgical History / Comment(s): skin cancer removed from face and scalp, surgery on rt arm and left leg after injury age 11, kat cataracts, heart cath 03/26/18 Past Anesthesia/Blood Transfusion Reactions: No Reported Reaction Past Psychological History: No Psychological Hx Reported Past Alcohol Use History: Rare Additional Past Alcohol Use History / Comment(s): quit smoking 60 yrs ago, smoked from age 14 to early 60's, 1 PPD Past Drug Use History: None Reported - Past Family History Mother Family Medical History: No Reported History Medications and Allergies Home Medications Medication Instructions Recorded Confirmed Type Atorvastatin [Lipitor] 20 mg PO HS 03/24/18 05/29/20 History Carvedilol 25 mg PO BID 03/24/18 05/29/20 History Digoxin [Digitek] 125 mcg PO HS 03/24/18 05/29/20 History Lisinopril [Zestril] 5 mg PO DAILY 03/24/18 05/29/20 History Rivaroxaban [Xarelto] 15 mg PO HS 03/24/18 05/29/20 History metFORMIN HCL [Glucophage] 850 mg PO BID 03/24/18 05/29/20 History Ammonium Lactate Lotion 1 applic TOPICAL DAILY PRN 05/29/20 05/29/20 History [Lac-Hydrin 12% Lotion] Isosorbide Mononitrate ER [Imdur] 60 mg PO DAILY 05/29/20 05/29/20 History Multivit-Min/FA/Lycopen/Lutein 1 tab PO DAILY 05/29/20 05/29/20 History [Centrum Silver Tablet] Omeprazole Magnesium [PriLOSEC OTC] 20 mg PO DAILY PRN 05/29/20 05/29/20 History Saw [place] 450mg 450 mg PO BID 05/29/20 05/29/20 History Allergies Allergy/AdvReac Type Severity Reaction Status Date / Time iodine Allergy Rash/Hives Verified 05/29/20 18:48 Physical Exam Vitals: Vital Signs Temp Pulse Resp BP BP BP Pulse Ox 06/02/20 04:00 97.7 F 58 L 18 93/48 95 06/02/20 00:00 97.6 F 72 17 92/53 93 L 06/01/20 20:00 97.7 F 62 18 91/52 89/57 95 06/01/20 18:00 93 L 06/01/20 16:00 71 19 83/48 92 L 06/01/20 12:00 65 20 82/51 97 Intake and Output 06/01/20 06/02/2020 22:59 06:59 14:59 Intake Total 230 120 Output Total 375 300 Balance -145 -300 120 Intake: Oral 230 120 Output: Urine 375 300 Other: Voiding Method Urinal Urinal # Voids 1 2 0 # Bowel Movements 0 Weight 91.2 kg Results - Lab Results Most recent lab results Calcium 8.2 mg/dL (8.4-10.2) L 06/02/20 06:38 Magnesium 1.7 mg/dL (1.6-2.3) 05/29/20 18:18 06/02/20 06:38 06/02/20 06:38 Assessment and Plan Plan: Assessment: 1. Acute kidney injury mostly prerenal secondary to cardiorenal syndrome. Also component of contrast-induced acute kidney injury. Patient underwent cardiac catheterization on May 31. Baseline creatinine 1. It is 1.23 today. 2. Acute systolic CHF with ejection fraction of 40-45% with severe tricuspid regurgitation and pulmonary hypertension. Moderate to severe mitral regu rgitation. 3. Severely calcified vessels noted on cardiac catheterization on May 31. 4. Volume overload. Improving. 5. Diabetes mellitus. Plan: Continue Lasix 20 mg IV twice daily. Check urinalysis. Avoid nephrotoxins. Add midodrine. Continue to monitor renal function and urine output. Thank you for the consultation. I will continue to follow the patient with you during his hospital stay.
[2020-06-02] MEDS: FUROSEMIDE 10 MG/ML 2 ML VIAL IV SCH ×2 (10:22→22:28)
[2020-06-02] MEDS: carvediloL 3.125 MG TAB PO SCH ×2 (10:29→17:24)
[2020-06-02 12:08] LABS: Glucose,Whole Blood 148 mg/dL (75-99)
--- NOTE | 2020-06-02 12:08 | CT ---
EXAMINATION TYPE: CT chest wo con DATE OF EXAM: 06/02/2020 COMPARISON: 01/18/2020 HISTORY: 84-year-old male Chest pain, IPF, hypoxemia TECHNIQUE: Contiguous axial scanning of the chest without IV contrast. Coronal and sagittal reconstru ctions performed. CT DLP: 418.2 mGycm Automated exposure control for dose reduction was used. FINDINGS: The heart is moderately enlarged. Extensive three-vessel coronary artery calcifications are present. Mild aneurysm ascending aorta 4.1 cm. Mild atherosclerotic arch calcifications with conventional bran daniel anatomy. Large caliber to the main right and left pulmonary arteries at 3.8 and 3.4 cm, respectively, compatib le with underlying pulmonary arterial hypertension. Borderline sized 1 cm right paratracheal lymph node is unchanged, likely reactive. Otherwise, no thor acic lymphadenopathy identified by noncontrast technique. Small to moderate right and small left pleural effusions. Patchy and confluent groundglass and diffus e septal lines. Diffuse breathing motion artifact is also present. Basilar honeycombing not as well e valuated due to the breathing motion and superimposed parenchymal disease. Visualized upper abdomen shows mild perihepatic ascites. Bones: Bridging anterior endplate spondylosis compatible with DISH. IMPRESSION: 1. CARDIOMEGALY, PULMONARY ARTERIAL HYPERTENSION, SMALL TO MODERATE RIGHT AND SMALL LEFT PLEURAL EFFU SIONS. PATCHY AND CONFLUENT AIRSPACE DISEASE WITH DIFFUSE SEPTAL LINES. CORRELATE FOR CHF AND PULMONA RY EDEMA. 2. CAD WITH EXTENSIVE THREE-VESSEL CORONARY ARTERY CALCIFICATIONS. 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 3. KNOWN HONEYCOMBING/PULMONARY FIBROSIS NOT WELL EVALUATED DUE TO BREATHING MOTION AND SUPERIMPOS ED ACUTE PARENCHYMAL DISEASE. 4. MILD PERIHEPATIC ASCITES PROBABLY DUE TO FLUID OVERLOAD STATE.
[2020-06-02] MEDS: MIDODRINE 5 MG TAB PO SCH ×2 (12:53→17:26)
--- NOTE | 2020-06-02 14:38 | PN ---
PROGRESS NOTE Mr. Gonzalez had some shortness of breath, relatively hypotensive. I am stopping his Coreg altogether for the time being and also will discontinue lisinopril, cautiously hydrate him and see how he does. Patient's current chest x-ray reveals some pulmonary vascular congestion. He has a total occlusion of RCA, significant disease in the circumflex and LAD seems to be patent. Had calcified arteries. Options are limited. I spoke to the patient's , explained to her that the risk of sudden is high. Prognosis is poor. Heart failure is a significant ongoing issue. She understands this very well. We will continue to optimize medical therapy as best as we can. Vital signs stable, JVD is evident. S1-S2 heard normally. Systolic murmur is audible. Lungs reveal bilateral fine rales. Abdomen and lower extremity exam is unchanged. Right groin is clean and dry with palpable pulse. MMODL / IJN: [id number] /
--- NOTE | 2020-06-02 16:09 | P.PN ---
Subjective Progress Note Date: 06/02/20 On 06/01/2020 on seeing the patient for a follow-up. The patient has undergone cardiac catheterization and the treatment will essentially be medical as that is no role for intervention as the patient has chronically occluded RCA and circumflex and the coronaries of heavily calcified. This morning the patient seems much more alert and awake. No significant confusion. He is having still some ongoing hypoxemia and she is requiring oxygen between 2 and 3 L per minute nasal cannula. As stated earlier, the patient has findings suggestive of IPF. A noncontrast CAT scan of the chest was ordered to rule out other possibilities contributing to his hypoxemia. Meanwhile, the patient's renal function is off and the creatinine is at 1.23. We'll be watching for any contrast nephropathy post cardiac catheterization. No chest pain. No significant cough or sputum production. Objective - Vital Signs Vital signs: Vital Signs Temp 96.6 F L 06/02/20 08:00 Pulse 72 06/02/20 11:00 Resp 18 06/02/20 11:00 BP 90/57 06/02/20 11:00 Pulse Ox 98 06/02/20 11:00 Intake & Output 06/01/20 06/02/20 06/02/20 18:59 06:59 18:59 Intake Total 460 360 Output Total 775 300 0 Balance -315 -300 360 Weight 91.2 kg Intake: Oral 460 360 Output: Urine 775 300 Stool 0 Other: Voiding Method Urinal Urinal Urinal # Voids 1 2 120 # Bowel Movements 0 - Exam The patient appeared well nourished and normally developed. Vital signs as docum ented. Head exam is unremarkable. No scleral icterus or corneal arcus noted. Neck is without jugular venous distension, thyromegaly, or carotid bruits. Carotid upstrokes are brisk bilaterally. Lungs are equal and symmetrical breath sounds and there are some coarse crackles in the mid and lower lung kebede bilaterally.. Cardiac exam reveals the PMI to be normally sized and situated. Rhythm is irregular and is slow consistent with atrial fibrillation.. First and second heart sounds normal. No murmurs, rubs or gallops. Abdominal exam reveals normal bowel sounds, no masses, no organomegaly and no aortic enlargement. Extremities are nonedematous and both femoral and pedal pulses are normal.Neurol ogically the patient is awake and alert and is no focal logical deficits.Examination of the skin revealed no evidence of significant rashes, suspicious appearing nevi or other concerning lesions. - Labs CBC & Chem 7: 06/02/20 06:38 06/02/20 06:38 Labs: Abnormal Lab Results - Last 24 Hours (Table) 06/01/20 06/01/20 06/01/20 Range/Units 05:47 17:05 19:58 RBC (4.30-5.90) m/uL Hgb (13.0-17.5) gm/dL Hct (39.0-53.0) % Plt Count (150-450) k/uL Sodium (137-145) mmol/L BUN (9-20) mg/dL Glucose (74-99) mg/dL POC Glucose (mg/dL) 204 H 229 H (75-99) mg/dL Hemoglobin A1c 6.8 H (4.0-6.0) % Calcium (8.4-10.2) mg/dL 06/02/20 06/02/20 06/02/20 Range/Units 06:05 06:38 06:38 RBC 3.97 L (4.30-5.90) m/uL Hgb 12.3 L (13.0-17.5) gm/dL Hct 38.1 L (39.0-53.0) % Plt Count 107 L (150-450) k/uL Sodium 135 L (137-145) mmol/L BUN 61 H (9-20) mg/dL Glucose 135 H (74-99) mg/dL POC Glucose (mg/dL) 156 H (75-99) mg/dL Hemoglobin A1c (4.0-6.0) % Calcium 8.2 L (8.4-10.2) mg/dL 06/02/20 Range/Units 11:56 RBC (4.30-5.90) m/uL Hgb (13.0-17.5) gm/dL Hct (39.0-53.0) % Plt Count (150-450) k/uL Sodium (137-145) mmol/L BUN (9-20) mg/dL Glucose (74-99) mg/dL POC Glucose (mg/dL) 148 H (75-99) mg/dL Hemoglobin A1c (4.0-6.0) % Calcium (8.4-10.2) mg/dL Assessment and Plan Plan: 1 coronary artery disease with previous known RCA disease, presents with chest pain shortness of breath and troponin elevation, consider non-STEMI. The patient underwent cardiac catheterization. The patient was found to have heavily calcified coronaries. Chronic occluded RCA and circumflex some mild disease involving the LAD. Medical treatment was advised. 2 CHF with mild impairment of left ventricle ejection fraction with an ejection fraction of 40-45% in addition to moderate MR and severe pulmonary hypertension 3 hypoxemia, likely chronic as the patient has pulmonary fibrosis involving the lung bases, peripheral distribution consistent with IPF. No other obvious secondary causes contributing to his pulmonary fibrosis. Medication history, occupational history and review of system is negative for any rheumatologic diseases and the patient has no other comorbidities or exposures to contiguity t o this pulmonary fibrosis. 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 Consider superimposed CHF/fluid overload contributing to the patient's hypoxemia. 4 chronic atrial fibrillation, maintained on long-term articulation with Xarelto 5 diabetes mellitus type 2 6 hypertension 7 hyperlipidemia 8 history of skin cancer 9 history of peptic ulcer disease 10 secondary pulmonary hypertension Plan Will proceed with a non-contrast CAT scan of the chest. As mentioned earlier, the patient has pulmonary fibrosis and this will be useful to evaluate the extent of pulmonary fibrosis and look for any honeycombing. Consider also superimposed CHF on top of point fibrosis, diabetes hypoxemia. The patient may have underlying pleural effusions and this will be further evaluated by the CAT scan of the chest. The patient is currently on Lasix 20 mg of push every 12 hours. The patient will be referred for home O2 at a later stage at time of discharge. Overall condition is stable. Monitor renal function. We'll continue to follow.
[2020-06-02 17:14] LABS: Glucose,Whole Blood 164 mg/dL (75-99)
[2020-06-02] MEDS: RIVAROXABAN 15 MG TAB PO SCH (17:26)
--- NOTE | 2020-06-02 17:50 | P.PN ---
Subjective Progress Note Date: 06/02/20 Dictation on the progress note date of service 06/02/2020 Patient seen and evaluated and he has a setter with mild confusion but calm and pleasant. He able to communicate. On the exam: Temperature 96.6. His heart rate irregular irregularities , with chronic atrial fibrillation. His blood pressure 84/51 and 90/57 with the underlying hypotension, Dr. LITA Cervantes cardiology decreased his Coreg to 3.125. And started on Midodrin 5 mg 3 times a day. Patient on Xarelto for the novel anticoagulation, his white count 8.9 and hemoglobin 12.3 and hematocrit 38.1. GFR 54, with the acute kidney injury seen by Dr. Contreras nephrology today, his sodium 135, potassium 4.9, carbon dioxide 24. Patient is conscious alert intermittently confused with possible delirium. HEENT the head was normocephalic and atraumatic. Oropharynx he had natural teeth. He had bluish discoloration of the lips associated with pulmonary fibrosis with IPF. And the hypoxemia. Seen by the pulmonary and critical care Dr. De Jesus. Pupil was equal reactive. Neck was supple no JVD no thyromegaly no lymphadenopathy trachea midline. Ches t: Bilateral dry expiratory rhonchi with mild chronic type with the underlying pulmonary fibrosis his oxygenation is markedly improved. The heart was regular irregularities controlled ventricular response. Abdomen soft positive bowel sound no tenderness in the 4 quadrants. Extremities no edema positive pulses. Neurologically: No lateralizing sign other than mild confusion with the possible delirium and associated dementia. 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 Acute hypoxic respiratory failure with the underlying IPF progressed. Congestive heart failure systolic probably on the top of chronic. Hyperlipidemia. Assessment and plan: #1 clinically appeared that patient have some him clinical improvement with the adjustment of medication. We'll continue the current program and the treatment. I did discuss it with the patient today in regards of going home or a correction he stated home. Will continue monitoring patient will follow the specialist and accommodation. Consultation with the nephrology appreciated we'll follow his recommendation as well. Objective - Vital Signs Vital signs: Vital Signs Temp 96.6 F L 06/02/20 08:00 Pulse 72 06/02/20 11:00 Resp 18 06/02/20 11:00 BP 90/57 06/02/20 11:00 Pulse Ox 98 06/02/20 11:00 Intake & Output 06/01/20 06/02/20 06/02/20 18:59 06:59 18:59 Intake Total 460 480 Output Total 775 300 0 Balance -315 -300 480 Weight 91.2 kg Intake: Oral 460 480 Output: Urine 775 300 Stool 0 Other: Voiding Method Urinal Urinal Urinal # Voids 1 2 1 # Bowel Movements 0 0 - Labs CBC & Chem 7: 06/02/20 06:38 06/02/20 06:38 Labs: Abnormal Lab Results - Last 24 Hours (Table) 06/01/20 06/01/20 06/02/20 Range/Units 05:47 19:58 06:05 RBC (4.30-5.90) m/uL Hgb (13.0-17.5) gm/dL Hct (39.0-53.0) % Plt Count (150-450) k/uL Sodium (137-145) mmol/L BUN (9-20) mg/dL Glucose (74-99) mg/dL POC Glucose (mg/dL) 229 H 156 H (75-99) mg/dL Hemoglobin A1c 6.8 H (4.0-6.0) % Calcium (8.4-10.2) mg/dL 06/02/20 06/02/20 06/02/20 Range/Units 06:38 06:38 11:56 RBC 3.97 L (4.30-5.90) m/uL Hgb 12.3 L (13.0-17.5) gm/dL Hct 38.1 L (39.0-53.0) % Plt Count 107 L (150-450) k/uL Sodium 135 L (137-145) mmol/L BUN 61 H (9-20) mg/dL Glucose 135 H (74-99) mg/dL POC Glucose (mg/dL) 148 H (75-99) mg/dL Hemoglobin A1c (4.0-6.0) % Calcium 8.2 L (8.4-10.2) mg/dL 06/02/20 Range/Units 17:05 RBC (4.30-5.90) m/uL Hgb (13.0-17.5) gm/dL Hct (39.0-53.0) % Plt Count (150-450) k/uL Sodium (137-145) mmol/L BUN (9-20) mg/dL Glucose (74-99) mg/dL POC Glucose (mg/dL) 164 H (75-99) mg/dL Hemoglobin A1c (4.0-6.0) % Calcium (8.4-10.2) mg/dL
[2020-06-02 19:18] LABS: Appearance,Urine Clear (Clear); Bilirubin,Urine Negative (Negative); Blood,Urine Negative (Negative); Color,Urine Yellow; Glucose,Urine (UA) Negative (Negative); Ketones,Urine Negative (Negative); Leukocyte Esterase,Urine Negative (Negative); Nitrite,Urine Negative (Negative); PH, Urine 5.5 (5.0-8.0); Protein,Urine Negative (Negative); Specific Gravity,Urine 1.018 (1.001-1.035); Urobilinogen,Urine <2.0 mg/dL (<2.0)
[2020-06-02 20:15] LABS: Glucose,Whole Blood 207 mg/dL (75-99)
[2020-06-02] MEDS: ATORVASTATIN 40 MG TAB PO SCH (22:27)
[2020-06-03 06:11] LABS: Glucose,Whole Blood 185 mg/dL (75-99)
[2020-06-03 06:23] LABS: Magnesium 1.9 mg/dL (1.6-2.3); Potassium 5.1 mmol/L (3.5-5.1)
[2020-06-03] MEDS: carvediloL 3.125 MG TAB PO SCH (06:50)
[2020-06-03] MEDS: INSULIN ASPART (NovoLOG) 100 UNIT/ML VIAL SQ SCH ×2 (06:51→12:33)
[2020-06-03] MEDS: MIDODRINE 5 MG TAB PO SCH ×2 (06:51→12:33)
[2020-06-03] MEDS ORDERED: carvediloL 3.125 MG TAB PO ONE (08:45)
[2020-06-03] MEDS ORDERED: glipiZIDE 10 MG TAB PO SCH (08:45)
[2020-06-03] MEDS: ASPIRIN 81 MG PO SCH (09:19)
[2020-06-03] MEDS: RANOLAZINE 500 MG TAB.ER.12H PO SCH (09:20)
[2020-06-03] MEDS: ISOSORBIDE MONONITRATE ER 60 MG TAB.ER.24H PO SCH (09:20)
[2020-06-03] MEDS: MULTIVITAMINS, THERA 1 EACH TAB PO SCH (09:20)
[2020-06-03] MEDS ORDERED: FUROSEMIDE 20 MG TAB PO SCH (10:00)
[2020-06-03 10:29] VITALS: TEMP 97.1
--- NOTE | 2020-06-03 10:54 | P.PN ---
Subjective Patient is seen in follow-up for acute kidney injury. Renal function stable. Denies chest pain or shortness of breath. He pulled out his IV line last night. He is maintained on oral Lasix. Oral intake fair. Good urine output. Vital signs are stable. General: The patient appeared well nourished and normally developed. HEENT: Head exam is unremarkable. Neck is without jugular venous distension. LUNGS: Breath sounds decreased. HEART: Rate and Rhythm are regular. ABDOMEN: Soft, nontender. EXTREMITITES: Trace edema. Objective - Vital Signs Vital signs: Vital Signs Temp 97.1 F L 06/03/20 08:00 Pulse 114 H 06/03/20 08:00 Resp 18 06/03/20 08:00 BP 100/65 06/03/20 08:00 Pulse Ox 92 L 06/03/20 08:00 Intake & Output 06/02/20 06/03/20 06/03/20 18:59 06:59 18:59 Intake Total 480 118 Output Total 0 1800 Balance 480 -1800 118 Weight 91.9 kg Intake: Oral 480 118 Output: Urine 1800 Stool 0 0 Other: Voiding Method Urinal Urinal Urinal # Voids 1 1 # Bowel Movements 0 - Labs CBC & Chem 7: 06/02/20 06:38 06/03/20 05:41 Labs: Abnormal Lab Results - Last 24 Hours (Table) 06/02/20 06/02/20 06/02/20 Range/Units 11:56 17:05 20:14 Sodium (137-145) mmol/L BUN (9-20) mg/dL Glucose (74-99) mg/dL POC Glucose (mg/dL) 148 H 164 H 207 H (75-99) mg/dL 06/03/20 06/03/20 Range/Units 05:41 06:09 Sodium 136 L (137-145) mmol/L BUN 61 H (9-20) mg/dL Glucose 202 H (74-99) mg/dL POC Glucose (mg/dL) 185 H (75-99) mg/dL Assessment and Plan Plan: Assessment: 1. Acute kidney injury mostly prerenal secondary to cardiorenal syndrome. Also component of contrast-induced acute kidney injury. Patient underwent cardiac catheterization on May 31. Baseline creatinine 1. It is 1.13 today. Urinalysis is benign. 2. Acute systolic CHF with ejection fraction of 40-45% with severe tricuspid regurgitation and pulmonary hypertension. Moderate to severe mitral regurgitation. 3. Severely calcified vessels noted on cardiac catheterization on May 31. 4. Volume overload. Improving. 5. Diabetes mellitus. Plan: I will change Lasix to Demadex 20 mg once daily. Avoid nephrotoxins. Continue to monitor renal function and urine output. Advised patient to follow 30-40 ounce fluid restriction per day as well as low-s alt diet. He was also advised to monitor his weight closely at home and to call if gains more than 3 pounds or has worsening of edema. Daughter present at bedside as well. Patient will need to follow up outpatient in 1-2 weeks. Repeat BMP and magnesium level 2-3 days postdischarge.
[2020-06-03] MEDS ORDERED: TORSEMIDE 20 MG TAB PO SCH (11:00)
--- NOTE | 2020-06-03 11:24 | P.PN ---
Subjective Progress Note Date: 06/03/20 Principal diagnosis: Coronary artery disease with chronic occluded RCA and circumflex, mild disease involving the LAD The patient is seen today 06/03/2020 in follow-up on the selective care unit. He is having issues with confusion. He currently denies any chest pain or worsening shortness of breath. He is maintaining O2 saturations in the 90s on 2 L/m per nasal cannula. He's been afebrile. Slightly tachycardic. Sodium 136. Potassium 5.1. Creatinine 1.13. Computed tomography scan of the chest revealed cardiomegaly, pulmonary artery hypertension, small to moderate right and left pleural effusions. Some airspace disease with diffuse septal lines. Known honeycombing/pulmonary fibrosis. Mild perihepatic ascites. Remains on Demadex. Anticoagulated with Xarelto. Objective - Vital Signs Vital signs: Vital Signs Temp 97.1 F L 06/03/20 08:00 Pulse 114 H 06/03/20 08:00 Resp 18 06/03/20 08:00 BP 100/65 06/03/20 08:00 Pulse Ox 92 L 06/03/20 08:00 Intake & Output 06/02/20 06/03/20 06/03/20 18:59 06:59 18:59 Intake Total 480 118 Output Total 0 1800 Balance 480 -1800 118 Weight 91.9 kg Intake: Oral 480 118 Output: Urine 1800 Stool 0 0 Other: Voiding Method Urinal Urinal Urinal # Voids 1 1 # Bowel Movements 0 - Exam The patient appeared well nourished and normally developed. Pleasant 84-year-old gentleman. On 2 L/m per nasal cannula. Vital signs as documented. Head exam is unremarkable. No scleral icterus or corneal arcus noted. Neck is without jugular venous distension, thyromegaly, or carotid bruits. Carotid upstrokes are brisk bilaterally. Lungs are equal and symmetrical breath sounds and there are some coarse crackles in the mid and lower lung kebede bilatera lly.. Cardiac exam reveals the PMI to be normally sized and situated. Rhythm is irregular and is slow consistent with atrial fibrillation.. First and second heart sounds normal. No murmurs, rubs or gallops. Abdominal exam reveals normal bowel sounds, no masses, no organomegaly and no aortic enlargement. Extremities are nonedematous and both femoral and pedal pulses are normal.Neurologically the patient is awake and alert and is no focal logical deficits. Examination of the skin revealed no evidence of significant rashes, suspicious appearing nevi or other concerning lesions. - Labs CBC & Chem 7: 06/02/20 06:38 06/03/20 05:41 Labs: Abnormal Lab Results - Last 24 Hours (Table) 06/02/20 06/02/20 06/02/20 Range/Units 11:56 17:05 20:14 Sodium (137-145) mmol/L BUN (9-20) mg/dL Glucose (74-99) mg/dL POC Glucose (mg/dL) 148 H 164 H 207 H (75-99) mg/dL 06/03/20 06/03/20 Range/Units 05:41 06:09 Sodium 136 L (137-145) mmol/L BUN 61 H (9-20) mg/dL Glucose 202 H (74-99) mg/dL POC Glucose (mg/dL) 185 H (75-99) mg/dL Assessment and Plan Assessment: 1 coronary artery disease with previous known RCA disease, presents with chest pain shortness of breath and troponin elevation, consider non-STEMI. The patient underwent cardiac catheterization. The patient was found to have heavily calcified coronaries. Chronic occluded RCA and circumflex some mild disease involving the LAD. Medical treatment was advised. 2 CHF with mild impairment of left ventricle ejection fraction with an ejection fraction of 40-45% in addition to moderate MR and severe pulmonary hypertension 3 hypoxemia, likely chronic as the patient has pulmonary fibrosis involving the lung bases, peripheral distribution consistent with IPF. No other obvious secondary causes contributing to his pulmonary fibrosis. Medication history, occupational history and review of system is negative for any rheumatologic diseases and the patient has no other comorbidities or exposures to contiguity to this pulmonary fibrosis. 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 Consider superimposed CHF/fluid overload contributing to the patie nt's hypoxemia. 4 chronic atrial fibrillation, maintained on long-term articulation with Xarelto 5 diabetes mellitus type 2 6 hypertension 7 hyperlipidemia 8 history of skin cancer 9 history of peptic ulcer disease 10 secondary pulmonary hypertension Plan The patient was seen and evaluated by Dr. Montenegro Assess for possible home oxygen Home once cleared by cardiology Follow-up with us with Dr. Singletary in our office in 1-2 weeks I, the cosigning physician, performed a history & physical examination of the patient. Lungs sounds with coarse crackles in the bilateral posterior bases. Maintaining good O2 saturations in the 90s on 2 L/m per nasal cannula. I discussed the assessment and plan of care with my nurse practitioner, Camryn Hastings. I attest to the above note as dictated by her.
[2020-06-03 11:49] VITALS: BMI 28.2
[2020-06-03 11:50] LABS: Glucose,Whole Blood 174 mg/dL (75-99)
[2020-06-03 12:17] VITALS: BP 98/69; PULSE 105
--- NOTE | 2020-06-03 15:35 | PN ---
PROGRESS NOTE This gentleman has significant CAD, hypertension, hyperlipidemia, chronic atrial fibrillation. He is doing somewhat better. Complains of being exhausted. His blood pressure is better today, but his heart rate is faster. I am recommending we increase Coreg to 6.[address] him on Lasix 20 mg b.i.d. His JVD is evident. S1, S2 heard normally. Irregular rhythm. Short systolic murmur at the base. Lungs reveal diminished air entry with scattered rales at bases. Abdomen and lower extremity exam unchanged. He has significant CAD, poor LV function and atrial fibrillation. Will optimize medical therapy, but overall prognosis appears to be poor. MMODL / IJN: [id number] /
[2020-06-03] MEDS ORDERED: carvediloL 6.25 MG TAB PO SCH (17:30)
--- NOTE | 2020-06-03 19:59 | DS ---
DISCHARGE SUMMARY This patient is an 84-year-old white male, . NEW DATA: He is FULL CODE. His height is 5 feet 11 inches, weight 91.9 kg, BSA 2.12 m2, BMI 28.3 kg/m2. ALLERGY: IODINE. His admission date was 05/29/2020. Admitted by hospitalist, who did history and physical on 05/30/2020. Name of the physician: Dr. Alida Barksdale. The patient was transferred to my service at the request of the hospitalist after the patient had his cardiac catheterization. On 06/01/2020 the initial progress note. FINAL DIAGNOSES: 1. Congestive heart failure, systolic, with pulmonary edema with impaired ejection fraction. 2. Akw-YP-hcdomes myocardial infarction with only elevated troponin, Npro-BNP. 3. Acute hypoxic respiratory failure associated with and hypoxia, discharged on 2 to 3 L oxygen due to desaturation with ambulation. 4. Acute pulmonary edema on admission, resolved on discharge. 5. Atrial fibrillation. 6. Status post cardiac catheterization by Dr. Rivera with the event of 2-vessel occluded disease, left circumflex coronary artery and right coronary artery with heavy calcification of all the coronary vessels with the underlying valvular heart disease with recommendation of medical therapy. 7. Pulmonary hypertension. 8. Dyspnea on exertion. 9. anticoagulant Xarelto. 10.Underlying ejection fraction of 40% to 45%. 11.Diabetes mellitus, type 2, on insulin during the hospitalization and subsequently placed on glipizide 2.5 mg twice a day. 12.Acute kidney injury, followed by Dr. Contreras, Nephrology. 13.Coronary artery disease; atherosclerotic heart disease. 14.Echocardiogram indicating moderate global hypokinesia of the left ventricle with moderate concentric left ventricular hypertrophy and ejection fraction 40% to 45%, right ventricle severely enlarged, left atrium severely dilated more than 40 mL/m2. Mild aortic sclerosis, mild aortic regurgitation, moderate to severe mitral regurgitation, severe tricuspid regurgitation, severe pulmonary hypertension, with the right ventricular systolic pressure 90.24 mmHg. Physiologic pulmonary regurgitation. No pericardial effusion by the echocardiogram (date of service 05/30/2020). 15.Dementia versus cognitive function impairment versus delirium with the mild confusion. 16.COVID-19 negative. CONSULTATIONS: 1. Dr. Rivera, Cardiology. 2. Dr. Jevon Cervantes, Cardiology. 3. Dr. Contreras, Nephrology. 4. Dr. Montenegro, Pulmonary and Critical Care. Patient presented to the emergency room. The patient was in another facility and transferred to [facility] emergency room and subsequently they admitted him under the hospitalist. They forgot that I am the attending physician until later on, when they called me to attend the patient. HOSPITAL COURSE: This patient was accepted on June 01. Further adjustment of his medication and discussion with Dr. Ted Cervantes. Patient at that time had cardiac catheterization by Dr. Rivera, wood floor layer. With the adjustment of the medication and cutting down gradually his Coreg as the patient became hypotensive, and the diuretics were adjusted. The patient progressively improved. It was found that the troponin was high and he had atrial fibrillation plus the proBNP was also elevated. With the progressive improvement, today he was cleared by Cardiology for discharge. He was seen and evaluated by Dr. Ted Cervantes and prescription was given. He was discharged home in stable general condition. However, because of his low blood pressure, his Coreg was decreased to 3.125 twice a day. EXAMINATION ON DISCHARGE: The patient is conscious, alert; however, he had confusion x1. His head was normocephalic, atraumatic. Pupils were equal, reactive. No facial asymmetry. Oropharynx: He has natural teeth with fillings. He had bluish discoloration of the lips, and at that time we did a test of walking for 6 minutes, and he desaturated to 87%. Subsequently an order was written for home oxygen at 2-3 L. With management, the saturation was 94% to 95%. His neck was supple. No lymphadenopathy. Trachea midline. Chest: He has bilateral Velcro expiratory rhonchi. No rales. Hyperinflation of the lung and shortness of breath with minimal exertion. Lungs were aerated bilaterally. Heart: Cardiomegaly, valvular heart disease, atrial fibrillation with fairly controlled ventricular response. Abdomen: Soft. Positive bowel sounds. No tenderness in the 4 quadrants. Extremities: No edema and positive pulses. Neurologically, the patient has no lateralizing sign. Cranial nerves were intact. However, he is confused x1. DISCUSSION: I did discuss this case in detail with his daughter Ritika, who is an RN teaching in the nursing school. I explained to her that the prognosis is guarded and the current diagnoses and the followup. Also requested visiting nurse to follow him as well. Oxygen supply, which patient received: Nasal oxygen 2 L. Followup next week with Dr. Mar. Also follow up with the consulting physicians: 1. Dr. Singletary, Pulmonary and Critical. 2. Dr. Rivera, Cardiology. 3. Dr. Contreras, Nephrology. ASSESSMENT AND PLAN: The patient is in stable general condition for discharge home today with the prescriptions given and sent to [facility]. Followup next week with Dr. Mar. MMODL / IJN: [id number] /
--- NOTE | 2020-06-05 07:36 | CDI ---
Documentation Clarification Form Date: 06/05/20 From: Daisha Patterson Phone: If you have a question about this query, please contact Melody Gates, Substance Abuse Rn at [phone] between 8am and 5pm. Admit Date: 05/29/20 Discharge Date: 06/03/20 Patient Name: CARLTON GUERRERO Visit Number: [id number] ATTENTION: The Clinical Documentation Specialists (CDI) and [facility] Coding Staff appreciate your assistance in clarifying documentation. Please respond to the clarification below the line at the bottom and electronically sign. The CDI & [facility] Coding staff will review the response and follow-up if needed. Please note: Queries are made part of the Legal Health Record. If you have any questions, please contact the author of this message via ITS. Dear Dr. Fitz Contreras, CKD is documented in your consult and Dr Montenegro's consult. History/Risk Factors: Patients Historical BUN/CR/GFR: Baseline creatinine 1 Clinical Indicators: DOS: 05/29-06/03/20 Current BUN: 22, 18, 34, 61, 61 Current CR: 0.64, 0.74, 1.15, 1.23, 1.13 Current GFR: 90, 85, 59, 54, 60 Treatment: Continue Lasix 20 mg IV daily, check urinalysis, avoid nephrotoxins, add midodrine, continue to monitor renal function and urine output Your Consult: Acute kidney injury mostly prerenal secondary to cardiorenal syndrome. Also component of contrast-induced acute kidney injury. Patient underwent cardiac catheterization on May 31. Baseline creatinine 1. It is 1.23 today. In order to capture the severity of condition, please clarify the stage of the CKD, if known: CKD ruled out CKD Stage 1 (GFR > 90) CKD Stage 2 (GFR 60-89) CKD Stage 3 (GFR 30-59) CKD Stage 4 (GFR 15-29) CKD Stage 5 (GFR <15) ESRD Other, please specify Unable to determine AKI RENETTAD
--- NOTE | 2020-06-05 07:44 | CDI ---
Documentation Clarification Form Date: 06/05/20 From: Daisha Patterson Phone: If you have a question about this query, please contact Melody Gates, Anaesthesiologist at [phone] between 8am and 5pm. Admit Date: 05/29/20 Discharge Date: 06/03/20 Patient Name: CARLTON GUERRERO Visit Number: [id number] ATTENTION: The Clinical Documentation Specialists (CDI) and [facility] Coding Staff appreciate your assistance in clarifying documentation. Please respond to the clarification below the line at the bottom and electronically sign. The CDI & [facility] Coding staff will review the response and follow-up if needed. Please note: Queries are made part of the Legal Health Record. If you have any questions, please contact the author of this message via ITS. Dear Dr. Rad Mar, The patient has uncontrolled Type II diabetes, as indicated on progress notes 06/01. POC Glucose: 122, 178, 86, 115, 142, 194, 218, 197, 231, 204, 229, 156, 148, 164, 207, 185, 174 Glucose: 168, 151, 190, 135, 202 A1c: 6.8 Treatment: Metformin 850 mg twice a day and Insulin NovoLog Sliding scale protocol Per [facility] 2016 - query the provider for clarification whether the patient has hyperglycemia or hypoglycemia so that the appropriate code may be reported - uncontrolled diabetes indicates that the patient's blood sugar is not at an acceptable level, because it is either too high or too low. In order to capture the severity of Illness and necessary documentation specificity, please clarify if Type 2 uncontrolled diabetes is: Hyperglycemia Hypoglycemia Other, please specify Unable to Determine MTDD
[2020-06-08 08:27] LABS: Glucose,Whole Blood 141 mg/dL (75-99)
--- NOTE | 2020-06-13 10:30 | CDI ---
Documentation Clarification Form Date: 06/05/20 From: Daisha Patterson Phone: If you have a question about this query, please contact Melody Gates, Fur Repairer at [phone] between 8am and 5pm. Admit Date: 05/29/20 Discharge Date: 06/03/20 Patient Name: CARLTON GUERRERO Visit Number: [id number] ATTENTION: The Clinical Documentation Specialists (CDI) and [facility] Coding Staff appreciate your assistance in clarifying documentation. Please respond to the clarification below the line at the bottom and electronically sign. The CDI & [facility] Coding staff will review the response and follow-up if needed. Please note: Queries are made part of the Legal Health Record. If you have any questions, please contact the author of this message via ITS. Dear Dr. Rad Mar, The patient has uncontrolled Type II diabetes, as indicated on progress notes 06/01. POC Glucose: 122, 178, 86, 115, 142, 194, 218, 197, 231, 204, 229, 156, 148, 164, 207, 185, 174 Glucose: 168, 151, 190, 135, 202 A1c: 6.8 Treatment: Metformin 850 mg twice a day and Insulin NovoLog Sliding scale protocol Per [facility] - query the provider for clarification whether the patient has hyperglycemia or hypoglycemia so that the appropriate code may be reported - uncontrolled diabetes indicates that the patient's blood sugar is not at an acceptable level, because it is either too high or too low. In order to capture the severity of Illness and necessary documentation specificity, please clarify if Type 2 uncontrolled diabetes is: Hyperglycemia Hypoglycemia Other, please specify Unable to Determine Hyperglycemia with the underlying history of diabetes mellitus type 2 borderline MTDD
== END 2020-06-03 15:08 | disposition home or self-care (01) | DRG 280 ==
LOC: EC 17:38 → UNDOADMIN 18:03 → 3SCARD 18:03
PROVIDERS: ADMIT Internal Medicine; ATTEND Internal Medicine
PROC: B2111ZZ Fluoroscopy of Multiple Coronary Arteries using Low Osmolar Contrast (ICD-10-PCS; principal; 2020-05-31 10:30)
PROC: 4A023N7 Measurement of Cardiac Sampling and Pressure, Left Heart, Percutaneous Approach (ICD-10-PCS; principal; 2020-05-31 10:30)
DX: I21.4 Non-ST elevation (NSTEMI) myocardial infarction (principal); I50.23 Acute on chronic systolic (congestive) heart failure; J96.01 Acute respiratory failure with hypoxia; G93.40 Encephalopathy, unspecified; N17.9 Acute kidney failure, unspecified; I48.20 Chronic atrial fibrillation, unspecified; R18.8 Other ascites; F05 Delirium due to known physiological condition; I27.21 Secondary pulmonary arterial hypertension; I27.29 Other secondary pulmonary hypertension; J84.112 Idiopathic pulmonary fibrosis; I95.9 Hypotension, unspecified; I11.0 Hypertensive heart disease with heart failure; F03.90 Unspecified dementia, unspecified severity, without behavioral disturbance, psychotic disturbance, mood disturbance, and anxiety; E11.65 Type 2 diabetes mellitus with hyperglycemia; I25.110 Atherosclerotic heart disease of native coronary artery with unstable angina pectoris; J44.9 Chronic obstructive pulmonary disease, unspecified; I25.5 Ischemic cardiomyopathy; I08.3 Combined rheumatic disorders of mitral, aortic and tricuspid valves; I37.1 Nonrheumatic pulmonary valve insufficiency; Z20.828 Contact with and (suspected) exposure to other viral communicable diseases; E87.5 Hyperkalemia; E78.5 Hyperlipidemia, unspecified; N40.0 Benign prostatic hyperplasia without lower urinary tract symptoms; T50.8X5A Adverse effect of diagnostic agents, initial encounter; I25.2 Old myocardial infarction; M19.90 Unspecified osteoarthritis, unspecified site; Z79.01 Long term (current) use of anticoagulants; Z79.84 Long term (current) use of oral hypoglycemic drugs; Z79.899 Other long term (current) drug therapy; Z87.19 Personal history of other diseases of the digestive system; Z85.828 Personal history of other malignant neoplasm of skin; Z87.891 Personal history of nicotine dependence; Z90.89 Acquired absence of other organs; Z98.42 Cataract extraction status, left eye; Z98.41 Cataract extraction status, right eye; Z87.11 Personal history of peptic ulcer disease; Z98.890 Other specified postprocedural states; Z91.048 Other nonmedicinal substance allergy status; Z88.8 Allergy status to other drugs, medicaments and biological substances
CPT/HCPCS: 36415; 71045; 71046; 71250; 80048; 80053; 80061; 81003; 82550; 83036; 83735; 83880; 84484; 85025; 85610; 85730; 93005; 93306; 93458; 99291

== ENCOUNTER 2020-06-06 10:24 | Inpatient (IN) | payer MEDICARE ==
[2020-06-06] MEDS ORDERED: PANTOPRAZOLE 40 MG/10 ML VIAL IVP STA (10:44)
[2020-06-06] MEDS ORDERED: SODIUM CHLORIDE 0.9% 500 ML 500 ML IV STA (10:44)
[2020-06-06] MEDS ORDERED: ONDANSETRON 4 MG/2 ML VIAL IVP STA (10:44)
[2020-06-06] MEDS ORDERED: MORPHINE SULFATE 2 MG/ML SYRINGE IVP STA (10:44)
[2020-06-06 11:19] LABS: INR 2.1 (<1.2); Partial Thromboplastin Time 28.9 sec (22.0-30.0); Prothrombin Time 20.7 sec (9.0-12.0)
[2020-06-06 11:25] LABS: Basophils % (A) 0 %; Eosinophils # (A) 0.1 k/uL (0-0.7); Eosinophils % (A) 1 %; HCT 40.4 % (39.0-53.0); HGB 13.7 gm/dL (13.0-17.5); Lymphocytes # (A) 0.9 k/uL (1.0-4.8); Lymphocytes % (A) 10 %; MCH 32.6 pg (25.0-35.0); MCHC 33.9 g/dL (31.0-37.0); MCV 96.2 fL (80.0-100.0); Mean Platelet Volume 9.1; Monocytes # (A) 0.5 k/uL (0-1.0); Monocytes % (A) 6 %; Neutrophils % (A) 82 %; Platelet Count 118 k/uL (150-450); RDW 14.1 % (11.5-15.5); WBC 8.5 k/uL (3.8-10.6)
--- NOTE | 2020-06-06 11:25 | XR ---
EXAMINATION TYPE: XR chest 2V DATE OF EXAM: 06/06/2020 COMPARISON: Prior chest x-ray 06/02/2020 HISTORY: Cough, hemoptysis TECHNIQUE: Frontal and lateral views of the chest are obtained. FINDINGS: Bilateral airspace disease shows a similar appearance. There is no evident pneumothorax or pleural effusion. Heart size is stable. Aorta is dense. IMPRESSION: Correlate for pneumonia, edema. There is cardiomegaly.
--- NOTE | 2020-06-06 11:26 | XR ---
KUB HISTORY: Abdominal pain Frontal KUB submitted. No comparisons Degenerative disc changes are present in the visualized spine. Interstitial lung disease present at t he lung bases: There is prominence of interstitium, blunting the costophrenic angles. No evident guadalupe l obstruction or pneumoperitoneum. Calcifications in the paraspinal location may be vascular. IMPRESSION: Interstitial lung disease. Difficult to exclude pleural effusions. Additional findings ab ove.
[2020-06-06 11:28] LABS: Albumin 3.8 g/dL (3.5-5.0); Calcium 8.4 mg/dL (8.4-10.2); Potassium 4.9 mmol/L (3.5-5.1); Total Bilirubin 2.8 mg/dL (0.2-1.3); Total Protein 6.6 g/dL (6.3-8.2)
--- NOTE | 2020-06-06 11:32 | ED ---
Abdominal Pain HPI - General Chief Complaint: Abdominal Pain Stated Complaint: Abd pain Time Seen by Provider: 06/06/20 10:28 Source: EMS Mode of arrival: EMS Limitations: no limitations - History of Present Illness Initial Comments: Patient is an 85-year-old male presenting to the emergency department for upper abdominal pain that started increasing last night. Patient was recently discharged from this hospital 3 days ago after having a cardiac catheterization performed last week. Patient denies any chest pain or shortness of breath at this time. He states yesterday he started feeling some abdominal discomfort and states throughout today it has been increasing so he decided to come in. He admits to some mild nausea, no vomiting. He denies any radiation up into his chest. He states his pain is mostly in his upper abdomen. He denies any urinary complaints, has been having regular bowel movements. Patient does admit to mild coughing, with phlegm and some blood streaks in the phlegm. Upon arrival to the ER, patient's blood pressure is 98/66, 95% on 2 L, rest of vitals normal. 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 - Related Data Home Medications Medication Instructions Recorded Confirmed Digoxin [Digitek] 125 mcg PO HS 03/24/18 06/06/20 Rivaroxaban [Xarelto] 15 mg PO HS 03/24/18 06/06/20 metFORMIN HCL [Glucophage] 850 mg PO BID 03/24/18 06/06/20 Ammonium Lactate Lotion 1 applic TOPICAL DAILY PRN 05/29/20 06/06/20 [Lac-Hydrin 12% Lotion] Isosorbide Mononitrate ER [Imdur] 60 mg PO DAILY 05/29/20 06/06/20 Multivit-Min/FA/Lycopen/Lutein 1 tab PO DAILY 05/29/20 06/06/20 [Centrum Silver Tablet] Omeprazole Magnesium [PriLOSEC OTC] 20 mg PO DAILY PRN 05/29/20 06/06/20 [address] [place] 450mg 450 mg PO BID 05/29/20 06/06/20 Carvedilol [Coreg] 3.125 mg PO BID 06/06/20 06/06/20 Midodrine [ProAmatine] 5 mg PO AC-TID PRN 06/06/20 06/06/20 glipiZIDE [Glucotrol] 5 mg PO AC-BID 06/06/20 06/06/20 Previous Rx's Medication Instructions Recorded Atorvastatin [Lipitor] 40 mg PO HS #90 tab 06/03/20 Torsemide [Demadex] 20 mg PO DAILY #30 tab 06/03/20 Allergies Allergy/AdvReac Type Severity Reaction Status Date / Time iodine Allergy Rash/Hives Verified 06/06/20 11:21 Review of Systems ROS Statement: Those systems with pertinent positive or pertinent negative responses have been documented in the HPI. ROS Other: All systems not noted in ROS Statement are negative. Past Medical History Past Medical History: Atrial Fibrillation, Coronary Artery Disease (CAD), Cancer, Chest Pain / Angina, Heart Failure, Diabetes Mellitus, GI Bleed, Hyperlipidemia, Hypertension, Myocardial Infarction ([place]), Osteoarthritis (OA) Additional Past Medical History / Comment(s): Coronary artery disease, previous RCA occlusion not amenable for stenting,, pulmonary fibrosis, hayfever, hx pepti c ulcer disease, skin cancer, diabetes, hypertension, hyperlipidemia, chronic kidney disease Last Myocardial Infarction Date:: unsure History of Any Multi-Drug Resistant Organisms: None Reported Past Surgical History: Heart Catheterization, Orthopedic Surgery, Tonsillectomy Additional Past Surgical History / Comment(s): skin cancer removed from face and scalp, surgery on rt arm and left leg after injury age 11, kat cataracts, heart cath 03/26/18 Past Anesthesia/Blood Transfusion Reactions: No Reported Reaction Past Psychological History: No Psychological Hx Reported Smoking Status: Former smoker Past Alcohol Use History: Rare Past Drug Use History: None Reported - Past Family History Mother Family Medical History: No Reported History General Exam - General Exam Comments Initial Comments: GENERAL: Patient is well-developed and well-nourished. Patient is nontoxic and in no acute distress, does appear uncomfortable. HEAD: Atraumatic, normocephalic. EYES: Pupils equal round and reactive to light, extraocular movements intact, sclera anicteric, conjunctiva are normal. Eyelids were unremarkable. ENT: TMs normal, nares patent, oropharynx clear without exudates. Moist mucous membranes. NECK: Normal range of motion, supple without lymphadenopathy or JVD. LUNGS: Unlabored respirations. Breath sounds clear to auscultation bilaterally and equal. No wheezes rales or rhonchi. HEART: Regular rate and rhythm without murmurs, rubs or gallops. ABDOMEN: Patient has tenderness with palpation of the epigastric, left upper quadrant. Soft, normoactive bowel sounds. No guarding, no rebound. No masses appreciated. : Deferred MUSCULOSKELETAL: Normal extremities with adequate strength and normal range of motion, no pitting or edema. No clubbing or cyanosis. NEUROLOGICAL: Patient is alert and oriented x 3. Motor and sensory are also intact. Cranial nerves II through XII grossly intact. Normal speech, normal gait. Symmetrical smile. PSYCH: Normal mood, normal affect. SKIN: Warm, Dry, normal turgor, no rashes or lesions noted. Limitations: no limitations Course Vital Signs 06/06/20 06/06/20 10:26 12:39 Temperature 98 F Pulse Rate 96 86 Respiratory 22 18 Rate Blood Pressure 98/66 108/78 O2 Sat by Pulse 95 99 Oximetry Medical Decision Making - Medical Decision Making Patient is an 85-year-old male presenting with epigastric pain that started last night. Vital signs are stable upon arrival, afebrile. Mild cough with phlegm production as well as small red streaks. On exam patient does have epigastric and right upper quadrant pain. Lab work shows an INR 2.1, sodium is slightly low at 132, lactic acid is 2.6. Transaminitis with bilirubin at 2.8, AST of 800, ALT is 1400, lipase is 415. Chest x-ray shows edema, correlate for pneumonia. KUB is no acute process. Ultrasound of the gallbladder shows stones, sludge, wall thickening is present. Correlate for cholecystitis. Patient was given fluids, pain control. He is comfortable at this time. Patient will be admitted, consult with surgery and GI as well as cardio to help with anticoagulation. Patient is in agreement this plan. Case discussed Dr. Teresa. - Lab Data Result diagrams: 06/06/20 11:06/06/20 11:01 Lab Results 06/06/20 06/06/20 06/06/20 Range/Units 11:01 11: 11: WBC 8.5 (3.8-10.6) k/uL RBC 4.20 L (4.30-5.90) m/uL Hgb 13.7 (13.0-17.5) gm/dL Hct 40.4 (39.0-53.0) % MCV 96.2 (80.0-100.0) fL MCH 32.6 (25.0-35.0) pg MCHC 33.9 (31.0-37.0) g/dL RDW 14.1 (11.5-15.5) % Plt Count 118 L (150-450) k/uL Neutrophils % 82 % Lymphocytes % 10 % Monocytes % 6 % Eosinophils % 1 % Basophils % 0 % Neutrophils # 7.0 (1.3-7.7) k/uL Lymphocytes # 0.9 L (1.0-4.8) k/uL Monocytes # 0.5 (0-1.0) k/uL Eosinophils # 0.1 (0-0.7) k/uL Basophils # 0.0 (0-0.2) k/uL PT 20.7 H (9.0-12.0) sec INR 2.1 H (<1.2) APTT 28.9 (22.0-30.0) sec Sodium 132 L (137-145) mmol/L Potassium 4.9 (3.5-5.1) mmol/L Chloride 96 L (98-107) mmol/L Carbon Dioxide 27 (22-30) mmol/L Anion Gap 9 mmol/L BUN 56 H (9-20) mg/dL Creatinine 0.93 (0.66-1.25) mg/dL Est GFR (CKD-EPI)AfAm 87 (>60 ml/min/1.73 sqM) Est GFR (CKD-EPI)NonAf 75 (>60 ml/min/1.73 sqM) Glucose 151 H (74-99) mg/dL Lactic Ac Sepsis Rflx Plasma Lactic Acid Edward (0.7-2.0) mmol/L Calcium 8.4 (8.4-10.2) mg/dL Total Bilirubin 2.8 H (0.2-1.3) mg/dL AST 802 H (17-59) U/L ALT 1438 H (4-49) U/L Alkaline Phosphatase 72 (38-126) U/L Total Protein 6.6 (6.3-8.2) g/dL Albumin 3.8 (3.5-5.0) g/dL Amylase 67 (30-110) U/L Lipase 415 H (23-300) U/L Urine Color Urine Appearance (Clear) Urine pH (5.0-8.0) Ur Specific Bonner (1.001-1.035) Urine Protein (Negative) Urine Glucose (UA) (Negative) Urine Ketones (Negative) Urine Blood (Negative) Urine Nitrite (Negative) Urine Bilirubin (Negative) Urine Urobilinogen (<2.0) mg/dL Ur Leukocyte Esterase (Negative) Urine RBC (0-5) /hpf Urine WBC (0-5) /hpf Ur Squamous Epith Cells (0-4) /hpf Urine Bacteria (None) /hpf Hyaline Casts (0-2) /lpf Granular Casts (0) /lpf Urine Mucus (None) /hpf 06/06/20 06/06/20 06/06/20 Range/Units 11:01 11:22 12:38 WBC (3.8-10.6) k/uL RBC (4.30-5.90) m/uL Hgb (13.0-17.5) gm/dL Hct (39.0-53.0) % MCV (80.0-100.0) fL MCH (25.0-35.0) pg MCHC (31.0-37.0) g/dL RDW (11.5-15.5) % Plt Count (150-450) k/uL Neutrophils % % Lymphocytes % % Monocytes % % Eosinophils % % Basophils % % Neutrophils # (1.3-7.7) k/uL Lymphocytes # (1.0-4.8) k/uL Monocytes # (0-1.0) k/uL Eosinophils # (0-0.7) k/uL Basophils # (0-0.2) k/uL PT (9.0-12.0) sec INR (<1.2) APTT (22.0-30.0) sec Sodium (137-145) mmol/L Potassium (3.5-5.1) mmol/L Chloride (98-107) mmol/L Carbon Dioxide (22-30) mmol/L Anion Gap mmol/L BUN (9-20) mg/dL Creatinine (0.66-1.25) mg/dL Est GFR (CKD-EPI)AfAm (>60 ml/min/1.73 sqM) Est GFR (CKD-EPI)NonAf (>60 ml/min/1.73 sqM) Glucose (74-99) mg/dL Lactic Ac Sepsis Rflx Y Plasma Lactic Acid Edward 2.6 H* (0.7-2.0) mmol/L Calcium (8.4-10.2) mg/dL Total Bilirubin (0.2-1.3) mg/dL AST (17-59) U/L ALT (4-49) U/L Alkaline Phosphatase (38-126) U/L Total Protein (6.3-8.2) g/dL Albumin (3.5-5.0) g/dL Amylase (30-110) U/L Lipase (23-300) U/L Urine Color Yellow Urine Appearance Cloudy (Clear) Urine pH 5.5 (5.0-8.0) Ur Specific Bonner 1.020 (1.001-1.035) Urine Protein 1+ H (Negative) Urine Glucose (UA) Negative (Negative) Urine Ketones Negative (Negative) Urine Blood Negative (Negative) Urine Nitrite Negative (Negative) Urine Bilirubin Negative (Negative) Urine Urobilinogen <2.0 (<2.0) mg/dL Ur Leukocyte Esterase Negative (Negative) Urine RBC 2 (0-5) /hpf Urine WBC 5 (0-5) /hpf Ur Squamous Epith Cells 1 (0-4) /hpf Urine Bacteria Rare H (None) /hpf Hyaline Casts 30 H (0-2) /lpf Granular Casts 41 (0) /lpf Urine Mucus Many H (None) /hpf - EKG Data EKG Comments: EKG shows a 2-year-old fibrillation, T-wave abnormalities, no signs of acute ischemia. Similar to previous EKG on 05/29/2020. Ventricular rate 91, QRS duration 110, QT 374. Disposition Clinical Impression: Cholecystitis, Transaminitis, Lactic acidosis, Cough Disposition: ADMITTED IP TO THIS [facility] Condition: Good Referrals: Rad Mar MD [Primary Care Provider] - 1-2 days Decision Date: 06/06/20 Decision Time: 13:13
--- NOTE | 2020-06-06 12:38 | US ---
EXAMINATION TYPE: US gallbladder DATE OF EXAM: 06/06/2020 COMPARISON: Chest x-ray same date CLINICAL HISTORY: epi gastric pain. Patient c/o abdominal pain today. EXAM MEASUREMENTS: Liver Length: 16.5 cm Gallbladder Wall: 0.4 cm CBD: 0.3 cm Right Kidney: 13.1 x 6.0 x 4.9 cm Pancreas: hyperechoic; prominent duct = 3.5mm Liver: no masses are seen Gallbladder: mobile gallstones are seen in LLD view; sludge is noted; abnormal wall thickening is pr esent; pericholecystic fluid is present. Evidence for sonographic Moreno's sign: no CBD: wnl Right Kidney: No hydronephrosis or masses seen Prominent IVC is noted. Right pleural effusion is seen. IMPRESSION: Correlate for cholecystitis.
[2020-06-06] MEDS ORDERED: MORPHINE SULFATE 4 MG/ML SYRINGE IV PRN (13:06)
[2020-06-06] MEDS ORDERED: KETOROLAC 30 MG/ML 1 ML VIAL IVP PRN (13:06)
[2020-06-06] MEDS ORDERED: ONDANSETRON 4 MG/2 ML VIAL IVP PRN (13:06)
[2020-06-06] MEDS ORDERED: NALOXONE 0.4 MG/ML 1 ML VIAL IV PRN (13:06)
[2020-06-06] MEDS ORDERED: ACETAMINOPHEN TAB 325 MG TAB PO PRN (13:06)
[2020-06-06 13:13] LABS: Appearance,Urine Cloudy (Clear); Bacteria,Urine Rare /hpf; Bilirubin,Urine Negative (Negative); Blood,Urine Negative (Negative); Color,Urine Yellow; Glucose,Urine (UA) Negative (Negative); Granular Casts,Urine 41 /lpf (0); Hyaline Casts,Urine 30 /lpf (0-2); Ketones,Urine Negative (Negative); Leukocyte Esterase,Urine Negative (Negative); Mucus,Urine Many /hpf; Nitrite,Urine Negative (Negative); PH, Urine 5.5 (5.0-8.0); Protein,Urine 1+ (Negative); RBC,Urine 2 /hpf (0-5); Squamous Epithelial Cell,Urine 1 /hpf (0-4); Urobilinogen,Urine <2.0 mg/dL (<2.0); WBC,Urine 5 /hpf (0-5)
[2020-06-06] MEDS ORDERED: SODIUM CHLORIDE 0.9% 1,000 ML IV SCH (13:15)
[2020-06-06 13:56] VITALS: TEMP 97.6
[2020-06-06] MEDS ORDERED: AMMONIUM LACTATE 12% LOTION 225 GM BTL TOPICAL PRN (16:35)
[2020-06-06] MEDS ORDERED: NON FORMULARY DRUG (Omeprazole Magnesium [Prilosec Otc] 20 MG) PO PRN (16:35)
[2020-06-06] MEDS ORDERED: MIDODRINE 5 MG TAB PO PRN (16:43)
[2020-06-06 16:53] LABS: Glucose,Whole Blood 148 mg/dL (75-99)
--- NOTE | 2020-06-06 16:57 | P.GSCN ---
History of Present Illness Consult date: 06/06/20 Reason for Consult: Cholelithiasis, gallstone pancreas History of present illness: This is an 85-year-old male who presents emergency room with complaints of abdominal pain. Patient's workup found evidence of cholelithiasis and pancreatitis. Patient's elevated liver enzymes and bilirubin. Past Medical History Past Medical History: Atrial Fibrillation, Coronary Artery Disease (CAD), Cancer, Chest Pain / Angina, Heart Failure, Diabetes Mellitus, GI Bleed, Hyperlipidemia, Hypertension, Myocardial Infarction ([place]), Osteoarthritis (OA) Additional Past Medical History / Comment(s): Coronary artery disease, previous RCA occlusion not amenable for stenting,, pulmonary fibrosis, hayfever, hx peptic ulcer disease, skin cancer, diabetes, hypertension, hyperlipidemia, chronic kidney disease Last Myocardial Infarction Date:: unsure History of Any Multi-Drug Resistant Organisms: None Reported Past Surgical History: Heart Catheterization, Orthopedic Surgery, Tonsillectomy Additional Past Surgical History / Comment(s): skin cancer removed from face and scalp, surgery on rt arm and left leg after injury age 11, kat cataracts, heart cath 03/26/18 Past Anesthesia/Blood Transfusion Reactions: No Reported Reaction Past Psychological History: No Psychological Hx Reported Smoking Status: Former smoker Past Alcohol Use History: Rare Past Drug Use History: None Reported - Past Family History Mother Family Medical History: No Reported History Medications and Allergies Home Medications Medication Instructions Recorded Confirmed Type Digoxin [Digitek] 125 mcg PO HS 03/24/18 06/06/20 History Rivaroxaban [Xarelto] 15 mg PO HS 03/24/18 06/06/20 History metFORMIN HCL [Glucophage] 850 mg PO BID 03/24/18 06/06/20 History Ammonium Lactate Lotion 1 applic TOPICAL DAILY PRN 05/29/20 06/06/20 History [Lac-Hydrin 12% Lotion] Isosorbide Mononitrate ER [Imdur] 60 mg PO DAILY 05/29/20 06/06/20 History Multivit-Min/FA/Lycopen/Lutein 1 tab PO DAILY 05/29/20 06/06/20 History [Centrum Silver Tablet] Omeprazole Magnesium [PriLOSEC OTC] 20 mg PO DAILY PRN 05/29/20 06/06/20 History Saw [place] 450mg 450 mg PO BID 05/29/20 06/06/20 History Atorvastatin [Lipitor] 40 mg PO HS #90 tab 06/03/20 06/06/20 Rx Torsemide [Demadex] 20 mg PO DAILY #30 tab 06/03/20 06/06/20 Rx Carvedilol [Coreg] 3.125 mg PO BID 06/06/20 06/06/20 History Midodrine [ProAmatine] 5 mg PO AC-TID PRN 06/06/20 06/06/20 History glipiZIDE [Glucotrol] 5 mg PO AC-BID 06/06/20 06/06/20 History Allergies Allergy/AdvReac Type Severity Reaction Status Date / Time iodine Allergy Rash/Hives Verified 06/06/20 11:21 Surgical - Exam Vital Signs Temp Pulse Resp BP Pulse Ox 98 F 96 22 98/66 95 06/06/20 10:26 06/06/20 10:26 06/06/20 10:26 06/06/20 10:26 06/06/20 10:26 - General well developed, well nourished, no distress - Eyes PERRL, icteric - ENT normal pinna - Neck no masses - Respiratory normal expansion - Cardiovascular Rhythm: regular - Abdomen Abdomen: soft, non tender Results - Labs 06/06/20 11:01 06/06/20 11:01 Abnormal Lab Results - Last 24 Hours (Table) 06/06/20 06/06/20 06/06/20 Range/Units 11:01 11:01 11:01 RBC 4.20 L (4.30-5.90) m/uL Plt Count 118 L (150-450) k/uL Lymphocytes # 0.9 L (1.0-4.8) k/uL PT 20.7 H (9.0-12.0) sec INR 2.1 H (<1.2) Sodium 132 L (137-145) mmol/L Chloride 96 L (98-107) mmol/L BUN 56 H (9-20) mg/dL Glucose 151 H (74-99) mg/dL POC Glucose (mg/dL) (75-99) mg/dL Plasma Lactic Acid Edward (0.7-2.0) mmol/L Total Bilirubin 2.8 H (0.2-1.3) mg/dL AST 802 H (17-59) U/L ALT 1438 H (4-49) U/L Lipase 415 H (23-300) U/L Urine Protein (Negative) Urine Bacteria (None) /hpf Hyaline Casts (0-2) /lpf Urine Mucus (None) /hpf 06/06/20 06/06/20 06/06/20 Range/Units 11:01 12:38 14:15 RBC (4.30-5.90) m/uL Plt Count (150-450) k/uL Lymphocytes # (1.0-4.8) k/uL PT (9.0-12.0) sec INR (<1.2) Sodium (137-145) mmol/L Chloride (98-107) mmol/L BUN (9-20) mg/dL Glucose (74-99) mg/dL POC Glucose (mg/dL) (75-99) mg/dL Plasma Lactic Acid Edward 2.6 H* 2.1 H* (0.7-2.0) mmol/L Total Bilirubin (0.2-1.3) mg/dL AST (17-59) U/L ALT (4-49) U/L Lipase (23-300) U/L Urine Protein 1+ H (Negative) Urine Bacteria Rare H (None) /hpf Hyaline Casts 30 H (0-2) /lpf Urine Mucus Many H (None) /hpf 06/06/20 Range/Units 16:51 RBC (4.30-5.90) m/uL Plt Count (150-450) k/uL Lymphocytes # (1.0-4.8) k/uL PT (9.0-12.0) sec INR (<1.2) Sodium (137-145) mmol/L Chloride (98-107) mmol/L BUN (9-20) mg/dL Glucose (74-99) mg/dL POC Glucose (mg/dL) 148 H (75-99) mg/dL Plasma Lactic Acid Edward (0.7-2.0) mmol/L Total Bilirubin (0.2-1.3) mg/dL AST (17-59) U/L ALT (4-49) U/L Lipase (23-300) U/L Urine Protein (Negative) Urine Bacteria (None) /hpf Hyaline Casts (0-2) /lpf Urine Mucus (None) /hpf Diabetes panel 06/06/20 Range/Units 11:01 Sodium 132 L (137-145) mmol/L Potassium 4.9 (3.5-5.1) mmol/L Chloride 96 L (98-107) mmol/L Carbon Dioxide 27 (22-30) mmol/L BUN 56 H (9-20) mg/dL Creatinine 0.93 (0.66-1.25) mg/dL Glucose 151 H (74-99) mg/dL Calcium 8.4 (8.4-10.2) mg/dL AST 802 H (17-59) U/L ALT 1438 H (4-49) U/L Alkaline Phosphatase 72 (38-126) U/L Total Protein 6.6 (6.3-8.2) g/dL Albumin 3.8 (3.5-5.0) g/dL Calcium panel 06/06/20 Range/Units 11:01 Calcium 8.4 (8.4-10.2) mg/dL Albumin 3.8 (3.5-5.0) g/dL Pituitary panel 06/06/20 Range/Units 11:01 Sodium 132 L (137-145) mmol/L Potassium 4.9 (3.5-5.1) mmol/L Chloride 96 L (98-107) mmol/L Carbon Dioxide 27 (22-30) mmol/L BUN 56 H (9-20) mg/dL Creatinine 0.93 (0.66-1.25) mg/dL Glucose 151 H (74-99) mg/dL Calcium 8.4 (8.4-10.2) mg/dL Adrenal panel 06/06/20 Range/Units 11:01 Sodium 132 L (137-145) mmol/L Potassium 4.9 (3.5-5.1) mmol/L Chloride 96 L (98-107) mmol/L Carbon Dioxide 27 (22-30) mmol/L BUN 56 H (9-20) mg/dL Creatinine 0.93 (0.66-1.25) mg/dL Glucose 151 H (74-99) mg/dL Calcium 8.4 (8.4-10.2) mg/dL Total Bilirubin 2.8 H (0.2-1.3) mg/dL AST 802 H (17-59) U/L ALT 1438 H (4-49) U/L Alkaline Phosphatase 72 (38-126) U/L Total Protein 6.6 (6.3-8.2) g/dL Albumin 3.8 (3.5-5.0) g/dL Assessment and Plan Assessment: Cholelithiasis, pancreas. Patient will undergo MRCP to evaluate for possible biliary stone. He may require ERCP. He will eventually need laparoscopic cholecystectomy.
[2020-06-06] MEDS ORDERED: carvediloL 3.125 MG TAB PO SCH (17:30)
[2020-06-06] MEDS ORDERED: glipiZIDE 5 MG TAB PO SCH (17:30)
[2020-06-06] MEDS ORDERED: INSULIN ASPART (NovoLOG) 100 UNIT/ML VIAL SQ SCH (17:30)
[2020-06-06] MEDS ORDERED: SODIUM BICARB 8.4% 50 ML SYR (1 MEQ/ML) ONE ×2 (17:51→18:58)
[2020-06-06] MEDS ORDERED: EPINEPHrine 10 ML SYRINGE (0.1 MG/ML) ONE ×2 (17:51→18:58)
[2020-06-06 17:59] LABS: Glucose,Whole Blood 151 mg/dL (75-99)
[2020-06-06 18:22] LABS: Glucose,Whole Blood 137 mg/dL (75-99)
--- NOTE | 2020-06-06 18:22 | P.HPIM ---
History of Present Illness H&P Date: 06/06/20 (Acute cholecystitis, abdominal pain, cholelithiasis.) Chief Complaint: Patient brought to the emergency room by ambulance, abdominal pain, coughin This is dictation admission history and physical date of service 06/14/[address] Mar, dictating the admission history and physical. Chief complaint: Patient discharged from the hospital recently with the underlying history of acute coronary artery syndrome, underwent cardiac catheterization, and accommo dation of advanced therapy, with the patient history of atrial fibrillation. The chief complaint has been obtained from his who I did speak to her frequently and also I spoke to her today. She stated that patient complained of the abdominal distention and coughing blood twice last night and this morning frothy and streaks of blood in the throat, he lost his appetite for last couple days. 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 She stopped his mid Midodrin because his blood pressure was 180 systolic. In the hospital ER his blood pressure is still low and we did send Midodrin 5 mg 3 times a day. With the oropharyngeal bleeding as she stated at home she stopped her aspirin, patient was already on Zarelto to avoid of increased bleeding tendency. After he has the abdominal pain in the right upper quadrant progressive he told his please call the ambulance to take me to the hospital. Hospital patient underwent ultrasound of the abdomen, found that he had cholelithiasis mild elevation of lipase, and bilirubin is elevated 2.8 and AST 802 A LT 1438 which is significantly elevated, his plasma lactic acid 2.6 and then repeat 2.1, lipase 415. The gallbladder ultrasound indicating a mobile gallstones seen sludge noted as well and abnormal wall thickening as well as apparently cholecystic fluid present. With the indication of acute cholecystitis. They consulted surgeon. satish White , who regular ERCP tomorrow and probably followed by laparoscopic cholecystectomy. His PT and INR is elevated, stopped the anticoagulant also consultation with the cardiology and gastroenterology. History of present illness: Mr. Guerrero who is 85 years old white male has been recently discharged from [facility] after he had been worked up with acute coronary syndrome and non- ST segment [place] and seen by the cardiology Dr. Miguel pelaez and Dr. LITA Cervantes, subsequent cardiac catheterization which is done by Dr. Lambert and he recommended no therapy only as he had significant disease of the four-vessel with calcification and he is not candidate for surgical intervention and continue medical therapy. Patient also had on admission that previously pulmonary edema and congestive heart failure was systolic in nature was off of his ejection fraction 30-40%. Added to valvular heart disease and pulmonary hypertension. Patient also found to have left circumflex and the right coronary artery completely occluded. Added to the other vessel disease. Patient with chronic atrial fibrillation and he had episode of hypotension during his previous hospitalization, subsequently he was praised on Midodrin, his found that his blood pressure in 180 systolic and she stopped this medication. Because of during hospitalization hypotension his Coreg has been decreased to 3.125 mg twice a day. And the JUDY inhibitor was also removed when he has a hypotension. 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 There is also large caliber right and left pulmonary artery 3.8 and 3.4 cm compatible with pulmonary hypertension which found later on by echocardiogram. He has bilateral honeycombing with the underlying IPF with the hypoxemia, On the previous admission and discharge he was tested for desaturation of the oxygen after walking a few steps to 87% and oxygen was prescribed for him at home. His was complaining about the oxygen without moist oral vapor. And he was between 2-3 L/m. His x-rays done in the last admission indicating also pulmonary fibrosis. Which is chronically present etiology is unknown and he had all with blue lips. And he gets short of breath with minimal exertion. He had previous admission check for Covid19 which was negative nonreactive. Also he had acute kidney injury with the hypotension subsequently recovered. Patient has history of paroxysmal atrial fibrillation, hypertension, hyperlipidemia, diabetes mellitus type 2 , currently he is on insulin in the hospital. Last echocardiogram was done last admission with the ejection fraction 40% with the underlying severely left atrial dilatation and moderate to severe mitral regurgitation and severe tricuspid regurgitation and severe pulmonary hypertension. He is hyperlipidemia. No history of smoking. Family history he has 2 daughters. 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 ALLERGY iodine. Review of system: Patient has underlying forgetfulness with the thought of cognitive function impairment versus delirium during his hospitalization, he is ambulatory, History of coughing blood twice by his . GI abdominal pain right upper quadrant, loss of appetite, no symptoms. Cardiovascular no symptoms except that his distended coughing blood which is attributed to anticoagulant and aspirin however his already stopped the aspirin. Musculoskeletal: Generalized weakness but he was able to walk at home to go to the bathroom. Skin history of dry skin. No history of stroke. The rest of 14 Bullet noncontributory. Physical exam: HEENT was head was normocephalic and atraumatic pupil was equal reactive, conjunctiva was pink, left soles bluish discolored. Neck was supple no JVD no thyromegaly no lymphadenopathy. Chest increased anteroposterior diameter with the lung, no wheezing on the deep respiration. And down decreased air entry on the basis of the lung. The heart irregular irregularity is with atrial fibrillation. Abdomen: Positive bowel sounds and tenderness in the right upper quadrant with even pulsation. Extremities no edema and positive pulses. Neurologically no evidence of lateralizing sign, possible early dementia concern. Assessment: Acute abdominal pain with acute abdomen with the possibility of underlying acute cholelithiasis, cholecystitis, questionable pancreatitis. #2 underlying sepsis and hypotension and patient was started on Midodrin. Discontinue the digoxin. Decrease IV fluid with the underlying history of congestive heart failure. Lactic acidosis and still high lactic acid after repeat . Plan: Consultation with surgeon, consultation with gastroenterology, consultation with pulmonary and critical care, and consultation with the cardiology. Patient started on Zosyn IV piggyback pharmacy to dose. Medication ordered and adjusted total seen by cardiology and pulmonary. During the dictation the nurse was passing by Lisandro and found that he 12 red bluish discolored and full code was done with low back and CPR and patient's son-in-law agreeably consulting the Dr. Gustavo TYLER who has been taking care of the patient with the IPF in the past and lost clinic. And patient will be monitor and the admitted to the hospital. His PT and INR is high as well as lactic acid and we are not planning for surgery tomorrow on-call patient started last. Plan Past Medical History Past Medical History: Atrial Fibrillation, Coronary Artery Disease (CAD), Ca ncer, Chest Pain / Angina, Heart Failure, Diabetes Mellitus, GI Bleed, Hyperlipidemia, Hypertension, Myocardial Infarction ([place]), Osteoarthritis (OA) Additional Past Medical History / Comment(s): Coronary artery disease, previous RCA occlusion not amenable for stenting,, pulmonary fibrosis, hayfever, hx peptic ulcer disease, skin cancer, diabetes, hypertension, hyperlipidemia, chronic kidney disease Last Myocardial Infarction Date:: unsure History of Any Multi-Drug Resistant Organisms: None Reported Past Surgical History: Heart Catheterization, Orthopedic Surgery, Tonsillectomy Additional Past Surgical History / Comment(s): skin cancer removed from face and scalp, surgery on rt arm and left leg after injury age 11, kat cataracts, heart cath 03/26/18 Past Anesthesia/Blood Transfusion Reactions: No Reported Reaction Past Psychological History: No Psychological Hx Reported Smoking Status: Former smoker Past Alcohol Use History: Rare Past Drug Use History: None Reported - Past Family History Mother Family Medical History: No Reported History Medications and Allergies Home Medications Medication Instructions Recorded Confirmed Type Digoxin [Digitek] 125 mcg PO HS 03/24/18 06/06/20 History Rivaroxaban [Xarelto] 15 mg PO HS 03/24/18 06/06/20 History metFORMIN HCL [Glucophage] 850 mg PO BID 03/24/18 06/06/20 History Ammonium Lactate Lotion 1 applic TOPICAL DAILY PRN 05/29/20 06/06/20 History [Lac-Hydrin 12% Lotion] Isosorbide Mononitrate ER [Imdur] 60 mg PO DAILY 05/29/20 06/06/20 History Multivit-Min/FA/Lycopen/Lutein 1 tab PO DAILY 05/29/20 06/06/20 History [Centrum Silver Tablet] Omeprazole Magnesium [PriLOSEC OTC] 20 mg PO DAILY PRN 05/29/20 06/06/20 History Saw [place] 450mg 450 mg PO BID 05/29/20 06/06/20 History Atorvastatin [Lipitor] 40 mg PO HS #90 tab 06/03/20 06/06/20 Rx Torsemide [Demadex] 20 mg PO DAILY #30 tab 06/03/20 06/06/20 Rx Carvedilol [Coreg] 3.125 mg PO BID 06/06/20 06/06/20 History Midodrine [ProAmatine] 5 mg PO AC-TID PRN 06/06/20 06/06/20 History glipiZIDE [Glucotrol] 5 mg PO AC-BID 06/06/20 06/06/20 History Allergies Allergy/AdvReac Type Severity Reaction Status Date / Time iodine Allergy Rash/Hives Verified 06/06/20 11:21 Physical Exam Vitals: Vital Signs Temp Pulse Pulse Resp BP BP Pulse Ox 06/06/20 13:26 97.6 F 89 16 107/86 97 06/06/20 12:39 86 18 108/78 99 06/06/20 10:26 98 F 96 22 98/66 95 Intake and Output 06/06/20 06/06/20 06/06/20 06:59 14:59 22:59 Other: Voiding Method Toilet # Voids 1 Weight 91.172 kg Results CBC & Chem 7: 06/06/20 11:01 06/06/20 11:01 Labs: Abnormal Lab Results - Last 24 Hours (Table) 06/06/20 06/06/20 06/06/20 Range/Units 11:01 11:01 11:01 RBC 4.20 L (4.30-5.90) m/uL Plt Count 118 L (150-450) k/uL Lymphocytes # 0.9 L (1.0-4.8) k/uL PT 20.7 H (9.0-12.0) sec INR 2.1 H (<1.2) Sodium 132 L (137-145) mmol/L Chloride 96 L (98-107) mmol/L BUN 56 H (9-20) mg/dL Glucose 151 H (74-99) mg/dL POC Glucose (mg/dL) (75-99) mg/dL Plasma Lactic Acid Edward (0.7-2.0) mmol/L Total Bilirubin 2.8 H (0.2-1.3) mg/dL AST 802 H (17-59) U/L ALT 1438 H (4-49) U/L Lipase 415 H (23-300) U/L Urine Protein (Negative) Urine Bacteria (None) /hpf Hyaline Casts (0-2) /lpf Urine Mucus (None) /hpf 06/06/20 06/06/20 06/06/20 Range/Units 11:01 12:38 14:15 RBC (4.30-5.90) m/uL Plt Count (150-450) k/uL Lymphocytes # (1.0-4.8) k/uL PT (9.0-12.0) sec INR (<1.2) Sodium (137-145) mmol/L Chloride (98-107) mmol/L BUN (9-20) mg/dL Glucose (74-99) mg/dL POC Glucose (mg/dL) (75-99) mg/dL Plasma Lactic Acid Edward 2.6 H* 2.1 H* (0.7-2.0) mmol/L Total Bilirubin (0.2-1.3) mg/dL AST (17-59) U/L ALT (4-49) U/L Lipase (23-300) U/L Urine Protein 1+ H (Negative) Urine Bacteria Rare H (None) /hpf Hyaline Casts 30 H (0-2) /lpf Urine Mucus Many H (None) /hpf 06/06/20 Range/Units 16:51 RBC (4.30-5.90) m/uL Plt Count (150-450) k/uL Lymphocytes # (1.0-4.8) k/uL PT (9.0-12.0) sec INR (<1.2) Sodium (137-145) mmol/L Chloride (98-107) mmol/L BUN (9-20) mg/dL Glucose (74-99) mg/dL POC Glucose (mg/dL) 148 H (75-99) mg/dL Plasma Lactic Acid Edward (0.7-2.0) mmol/L Total Bilirubin (0.2-1.3) mg/dL AST (17-59) U/L ALT (4-49) U/L Lipase (23-300) U/L Urine Protein (Negative) Urine Bacteria (None) /hpf Hyaline Casts (0-2) /lpf Urine Mucus (None) /hpf Thrombosis Risk Factor Assmnt - Choose All That Apply Each Risk Factor Represents 3 Points: Age 75 years or older Thrombosis Risk Factor Assessment Total Risk Factor Score: 3 Thrombosis Risk Factor Assessment Level: Moderate Risk
--- NOTE | 2020-06-06 18:42 | XR ---
EXAMINATION TYPE: XR chest 1V portable DATE OF EXAM: 06/06/2020 COMPARISON: Today HISTORY: Intubation TECHNIQUE: Single view FINDINGS: Endotracheal tube is 3 cm from the kate. Heart is enlarged. There is pulmonary edema. The re are chest leads. There is nasogastric tube in the gastric fundus. IMPRESSION: Tubing in good position. There is patchy pulmonary edema unchanged compared to exam this morning. Moderate cardiomegaly.
--- NOTE | 2020-06-06 18:42 | P.PN ---
Progress Note - Text Progress Note Date: 06/06/20 SHAKIRA VELAZQUEZ note: SHAKIRA VELAZQUEZ was called around 5:55 PM. Patient was noted to have irregular pulse in the 20s and 30s. He had bluish discoloration of his lips and ears. Pacing was attempted unsuccessfully. Unable to obtain blood pressure. Patient lost his pulse and high-quality chest compressions were started. He received 2 doses of epinephrine and one amp of bicarbonate. He was intubated. ROSC was achieved. He was transferred to the ICU. There were concerns for intra- abdominal bleeding and CT chest, abdomen and pelvis was ordered. Stat CBC, CMP, lactic acid was ordered. Recommended 1 L bolus normal saline along with bicarbonate drip for his acidosis. His PCP was at bedside. Dr. Chen director marketing communications was notified. These events took approximately 41 minutes.
[2020-06-06] MEDS ORDERED: NOREPINEPHRIN 4 MG-0.9% NS PMX 4 MG/250 ML ML IV ONE (18:50)
[2020-06-06 19:11] LABS: ABG Base Excess -11.4 mmol/L; ABG HCO3 17 mmol/L (21-25); ABG Oxygen Saturation 99.3 % (94-97); ABG PCO2 45 mmHg (35-45); ABG PO2 282 mmHg (83-108); ABG TCO2 18 mmol/L (19-24); Allen Test Performed? Yes
[2020-06-06 19:13] LABS: Partial Thromboplastin Time 27.9 sec (22.0-30.0)
[2020-06-06] MEDS ORDERED: propofoL 100 ML IV ONE (19:14)
[2020-06-06] MEDS ORDERED: SODIUM CHLORIDE 0.9% 2,000 ML IV ONE (19:14)
[2020-06-06 19:15] LABS: ABG PH 7.18 (7.35-7.45)
[2020-06-06 19:17] LABS: Albumin 3.6 g/dL (3.5-5.0); Calcium 7.7 mg/dL (8.4-10.2); Phosphorus 6.2 mg/dL (2.5-4.5); Total Bilirubin 3.2 mg/dL (0.2-1.3); Total Protein 6.3 g/dL (6.3-8.2)
[2020-06-06 19:18] LABS: Magnesium 2.4 mg/dL (1.6-2.3)
--- NOTE | 2020-06-06 19:25 | P.CRDCN ---
History of Present Illness History of present illness: HISTORY OF PRESENTING ILLNESS This is a pleasant 85-year-old male past medical history significant for coronary artery disease status post recent non-STEMI, pulmonary fibrosis, chronic persistent atrial fibrillation on long-term anticoagulation, ischemic cardiomyopathy, valvular heart disease status post mitral valve repair, hypertension and dyslipidemia. He underwent cardiac catheterization May 31 revealing heavily calcified coronary arteries, chronically occluded RCA and left circumflex, moderate disease of the mid LAD and severe tortuosity in the iliofemoral artery on the right side. Maximum medical therapy was recommended. He follows in the office with Dr. Rivera. We have been asked to see in consultation for anti-coagulation recommendations. He underwent echocardiogram May 30 revealing impaired LV systolic function with ejection fraction 40-45%, severely large right ventricle, moderate to severe mitral regurgitation, severe tricuspid regurgitation and severe pulmonary hypertension with an RVSP of 90 mmHg. He was discharged from the hospital on June 03. Last night he had an acute onset of right upper quadrant abdominal pain associated with nausea but no vomiting. He has no symptoms of chest pain, shortness of breath, dizziness or palpitations. EKG on admission reveals atrial fibrillation with lateral ST changes. No change from previous obtained on May 29. He is seen and examined resting comfortably sitting up in bed in no acute distress. He states his abdominal discomfort has subsided. Gallbladder ultrasound revealed mobile gallstones with sludge and abnormal wall thickening suggestive of cholecystitis. Laboratory data reviewed, WBC 8.5, hemoglobin 13.7, platelets 118, INR 2.1, sodium 132, potassium 4.9, creatinine 0.93, lactic acid on admission 2. 6 repeat 2.1, total bilirubin 2.8, AST 802, ALT 1438 and lipase 415. Current daily cardiac medications include atorvastatin 40 mg daily, carvedilol 3.125 mg twice a day, digoxin 125 g at bedtime, Imdur 60 mg daily, midodrine 5 mg 3 times a day as needed, Xarelto 15 mg daily and torsemide 20 mg daily. REVIEW OF SYSTEMS At the time of my exam: CONSTITUTIONAL: Denies fever or chills. CARDIOVASCULAR: Denies chest pain, shortness of breath, orthopnea, PND or palpitations. RESPIRATORY: Denies cough. GASTROINTESTINAL: Denies abdominal pain, diarrhea, constipation, nausea or vom iting. MUSCULOSKELETAL: Denies myalgias. NEUROLOGIC: Denies numbness, tingling or weakness. ENDOCRINE: Denies fatigue, weight change, polydipsia or polyurina. GENITOURINARY: Denies burning, hematuria or urgency with micturation. HEMATOLOGIC: Denies history of anemia or bleeding. PHYSICAL EXAMINATION Blood pressure 107/86 heart rate 89 afebrile and maintaining oxygen saturation on nasal cannula. CONSTITUTIONAL: No apparent distress. HEENT: Head is normocephalic. Pupils are equal, round. Sclerae anicteric. Mucous membranes of the mouth are moist. Minimal less than 1 mm JVD bilaterally. No c arotid bruit. CHEST EXAMINATION: Lungs are clear to auscultation. No chest wall tenderness is noted on palpation or with deep breathing. HEART EXAMINATION: Irregular rate and rhythm. S1, S2 heard. Systolic ejection murmur at the base and apex no gallops or rub. ABDOMEN: Soft, nontender. Positive bowel sounds. EXTREMITIES: 2+ peripheral pulses, no lower extremity edema and no calf tenderness. NEUROLOGIC EXAMINATION: Patient is awake, alert and oriented x3. ASSESSMENT Abdominal pain and nausea with cholecystitis noted on ultrasound of the gallbladder Coronary artery disease status post recent non-ST elevated myocardial infarction Chronic persistent atrial fibrillation on long-term anticoagulation Valvular heart disease Ischemic cardiomyopathy Hypertension Dyslipidemia PLAN Hold xarelto pending surgical evaluation. Further recommendations to follow based on clinical course. Thank you kindly for this consultation. Nurse Practitioner note has been reviewed, I agree with a documented findings and plan of care. Patient was seen and examined. Past Medical History Past Medical History: Atrial Fibrillation, Coronary Artery Disease (CAD), Ca ncer, Chest Pain / Angina, Heart Failure, Diabetes Mellitus, GI Bleed, Hyperlipidemia, Hypertension, Myocardial Infarction ([place]), Osteoarthritis (OA) Additional Past Medical History / Comment(s): Coronary artery disease, previous RCA occlusion not amenable for stenting,, pulmonary fibrosis, hayfever, hx peptic ulcer disease, skin cancer, diabetes, hypertension, hyperlipidemia, chronic kidney disease Last Myocardial Infarction Date:: unsure History of Any Multi-Drug Resistant Organisms: None Reported Past Surgical History: Heart Catheterization, Orthopedic Surgery, Tonsillectomy Additional Past Surgical History / Comment(s): skin cancer removed from face and scalp, surgery on rt arm and left leg after injury age 11, kat cataracts, heart cath 03/26/18 Past Anesthesia/Blood Transfusion Reactions: No Reported Reaction Past Psychological History: No Psychological Hx Reported Smoking Status: Former smoker Past Alcohol Use History: Rare Past Drug Use History: None Reported - Past Family History Mother Family Medical History: No Reported History Medications and Allergies Home Medications Medication Instructions Recorded Confirmed Type Digoxin [Digitek] 125 mcg PO HS 03/24/18 06/06/20 History Rivaroxaban [Xarelto] 15 mg PO HS 03/24/18 06/06/20 History metFORMIN HCL [Glucophage] 850 mg PO BID 03/24/18 06/06/20 History Ammonium Lactate Lotion 1 applic TOPICAL DAILY PRN 05/29/20 06/06/20 History [Lac-Hydrin 12% Lotion] Isosorbide Mononitrate ER [Imdur] 60 mg PO DAILY 05/29/20 06/06/20 History Multivit-Min/FA/Lycopen/Lutein 1 tab PO DAILY 05/29/20 06/06/20 History [Centrum Silver Tablet] Omeprazole Magnesium [PriLOSEC OTC] 20 mg PO DAILY PRN 05/29/20 06/06/20 History Saw [place] 450mg 450 mg PO BID 05/29/20 06/06/20 History Atorvastatin [Lipitor] 40 mg PO HS #90 tab 06/03/20 06/06/20 Rx Torsemide [Demadex] 20 mg PO DAILY #30 tab 06/03/20 06/06/20 Rx Carvedilol [Coreg] 3.125 mg PO BID 06/06/20 06/06/20 History Midodrine [ProAmatine] 5 mg PO AC-TID PRN 06/06/20 06/06/20 History glipiZIDE [Glucotrol] 5 mg PO AC-BID 06/06/20 06/06/20 History Allergies Allergy/AdvReac Type Severity Reaction Status Date / Time iodine Allergy Rash/Hives Verified 06/06/20 11:21 Physical Exam Vitals: Vital Signs Temp Pulse Pulse Resp BP BP Pulse Ox 06/06/20 13:26 97.6 F 89 16 107/86 97 06/06/20 12:39 86 18 108/78 99 06/06/20 10:26 98 F 96 22 98/66 95 Intake and Output 06/05/20 06/06/20 06/06/20 22:59 06:59 14:59 Other: # Voids 1 Weight 91.172 kg Results 06/06/20 11:01 06/06/20 18:45 Cardiac Enzymes 06/06/20 Range/Units 11:01 AST 802 H (17-59) U/L Coagulation 06/06/20 Range/Units 11:01 PT 20.7 H (9.0-12.0) sec APTT 28.9 (22.0-30.0) sec CBC 06/06/20 Range/Units 11:01 WBC 8.5 (3.8-10.6) k/uL RBC 4.20 L (4.30-5.90) m/uL Hgb 13.7 (13.0-17.5) gm/dL Hct 40.4 (39.0-53.0) % Plt Count 118 L (150-450) k/uL Comprehensive Metabolic Panel 06/06/20 Range/Units 11:01 Sodium 132 L (137-145) mmol/L Potassium 4.9 (3.5-5.1) mmol/L Chloride 96 L (98-107) mmol/L Carbon Dioxide 27 (22-30) mmol/L BUN 56 H (9-20) mg/dL Creatinine 0.93 (0.66-1.25) mg/dL Glucose 151 H (74-99) mg/dL Calcium 8.4 (8.4-10.2) mg/dL AST 802 H (17-59) U/L ALT 1438 H (4-49) U/L Alkaline Phosphatase 72 (38-126) U/L Total Protein 6.6 (6.3-8.2) g/dL Albumin 3.8 (3.5-5.0) g/dL Current Medications Generic Name Dose Route Start Last Admin Trade Name Freq PRN Reason Stop Dose Admin Acetaminophen 650 mg 06/06/20 13:06 Tylenol Tab PO Q6HR PRN Mild Pain or Fever > 100.5 Sodium Chloride 1,000 mls @ 60 mls/hr 06/06/20 13:15 06/06/20 13:32 Saline 0.9% IV 60 mls/hr .[id number] DEISY Administration Ketorolac Tromethamine 15 mg 06/06/20 13:06 Toradol IVP 06/11/20 13:07 Q6HR PRN Moderate Pain Morphine Sulfate 4 mg 06/06/20 13:06 Morphine Sulfate (Inj) IV Q4HR PRN Severe Pain Naloxone HCl 0.2 mg 06/06/20 13:06 Narcan IV Q2M PRN Opioid Reversal Ondansetron HCl 4 mg 06/06/20 13:06 Zofran IVP Q8HR PRN Nausea And Vomiting Intake and Output 06/05/20 06/06/20 06/06/20 22:59 06:59 14:59 Other: # Voids 1 Weight 91.172 kg Patient Weight 06/07/20 06:59 Weight 91.172 kg 06/06/20 11:01 06/06/20 11:01
[2020-06-06] MEDS ORDERED: NOREPINEPHRINE 4 MG in SODIUM CHLORIDE 0.9% 250 ML IV SCH (19:30)
[2020-06-06] MEDS ORDERED: SODIUM BICARB 8.4% 50 ML SYR (1 MEQ/ML) IV STA ×2 (19:35→20:03)
[2020-06-06 19:41] LABS: Basophils % (A) 0 %; Eosinophils % (A) 1 %; HCT 45.1 % (39.0-53.0); HGB 14.4 gm/dL (13.0-17.5); Hypochromasia Moderate; Lymphocytes % (A) 22 %; MCH 32.2 pg (25.0-35.0); MCHC 31.9 g/dL (31.0-37.0); Macrocytosis Slight; Mean Platelet Volume 9.8; Monocytes # (A) 0.5 k/uL (0-1.0); Monocytes % (A) 5 %; Neutrophils # (A) 6.3 k/uL (1.3-7.7); Neutrophils % (A) 71 %; Platelet Count 117 k/uL (150-450); RBC 4.46 m/uL (4.30-5.90); RDW 14.1 % (11.5-15.5); WBC 8.9 k/uL (3.8-10.6)
[2020-06-06] MEDS ORDERED: SODIUM CHLORIDE 0.9% 50 ML with VASOPRESSIN 20 UNIT IVPB SCH ×2 (20:15)
[2020-06-06] MEDS ORDERED: DEXTROSE 5% IN WATER 1,000 ML with SODIUM BICARB (1 MEQ/ML) 150 ML IV SCH (20:30)
[2020-06-06 20:39] VITALS: BP 71/53
--- NOTE | 2020-06-06 20:54 | P.PN ---
Progress Note - Text Progress Note Date: 06/06/20 Came in to icu at 8:40 pm to evaluate patient,found out he already passed and pronounced . I was not nnotified NO CONSULTATION WAS DONE
[2020-06-06] MEDS ORDERED: ATORVASTATIN 40 MG TAB PO SCH (21:00)
[2020-06-06] MEDS ORDERED: CHLORHEXIDINE GLUCONATE 15 ML CUP MUCOUS MEM SCH (21:00)
[2020-06-06] MEDS ORDERED: PIPERACILLIN-TAZOBACTAM 3.375 GM in SODIUM CHLORIDE 0.9% 100 ML IVPB SCH (21:00)
[2020-06-06] MEDS ORDERED: DIGOXIN 125 MCG TAB PO SCH (21:00)
[2020-06-06 22:07] VITALS: PULSE 29
[2020-06-06 23:17] VITALS: RESP 0
[2020-06-07] MEDS ORDERED: PANTOPRAZOLE 40 MG/10 ML VIAL IVP SCH (09:00)
[2020-06-07] MEDS ORDERED: MULTIVITAMINS, THERA 1 EACH TAB PO SCH (09:00)
[2020-06-07] MEDS ORDERED: ISOSORBIDE MONONITRATE ER 60 MG TAB.ER.24H PO SCH (09:00)
[2020-06-07] MEDS ORDERED: TORSEMIDE 20 MG TAB PO SCH (09:00)
--- NOTE | 2020-06-07 13:12 | P.DS ---
Providers Date of admission: 06/06/20 20:54 Expected date of discharge: 06/06/20 Attending physician: Rad Mar Consults: 06/06/20 13:06 Consult Physician Stat Consulting Provider: Ambrocio White Consult Reason/Comments: Acute cholecystitis, transaminitis Do you want consulting provider notified?: Already Contacted Consult Physician Stat Consulting Provider: Shanika Bustamante Consult Reason/Comments: Acute cholecystitis, transaminitis Do you want consulting provider notified?: Yes 06/06/20 13:20 Consult Physician Stat Consulting Provider: [facility] Consult Reason/Comments: Anticoagulation Do you want consulting provider notified?: Yes 06/06/20 18:27 Consult Physician Stat Consulting Provider: Adonay Singletary Consult Reason/Comments: icu management Do you want consulting provider notified?: Yes Primary care physician: Rad Mar This is a discharge summary. Patient admission on 06/06/2020. Patient discharged on 06/06/2020 Disposition: in ICU after he was coded in observation room 153. And transferred to the ICU with the consult with the critical care and pulmonary as patient was intubated and recesses dictated with CPR. Diagnoses: #1 respiratory arrest, followed by cardiac arrest, CPR and intubation. 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 #3 presentation with abdominal pain and currently lithiasis, cholecystitis with ultrasound stone mobile, questionable pancreatitis with elevated lipase. #4 coronary artery disease, atherosclerotic heart disease, #5 admitted last week with non-ST segment elevation UT, ischemic cardiomyopathy, valvular heart disease, underwent cardiac catheterization. #6 obstructive coronary artery disease, right coronary artery occluded, left circumflex also occluded, with heavy calcification of the coronary arteries. #7 ejection fraction of 40% with the associated valvular heart disease. #8 pulmonary hypertension, probably secondary to advanced IPF. #9 lactic acidemia on arrival to the emergency room. #10 possible sepsis started on antibiotic with the underlying probable cholecystitis and cholelithiasis associated with pain and loss of appetite. History and physical dictated on admission, however patient was in respiratory arrest and CODE BLUE was signd, patient underwent resuscitation with CPR and ambo bag as well intubation and transferred to ICU patient on ventilator. The nursing staff and instructed to call critical care and pulmonary. I did call his in ICU she was at home, discussed extensively current problem and according process, he is full code at the time, she will be coming to the hospital with the right from a friend. Patient recurrent hypotension, and the family decided no further code, resuscitation as CPR, he is already on the vent. Patient and notified me at 9 PM on 06/06/2020 and I was told that he around 8:22 PM. Patient Condition at Discharge: Good Plan - Discharge Summary New Discharge Prescriptions: No Action Digoxin [Digitek] 125 mcg PO HS metFORMIN HCL [Glucophage] 850 mg PO BID Rivaroxaban [Xarelto] 15 mg PO HS Saw Homer 450mg 450 mg PO BID Multivit-Min/FA/Lycopen/Lutein [Centrum Silver Tablet] 1 tab PO DAILY Isosorbide Mononitrate ER [Imdur] 60 mg PO DAILY Ammonium Lactate Lotion [Lac-Hydrin 12% Lotion] 1 applic TOPICAL DAILY PRN PRN Reason: Dry Skin Omeprazole Magnesium [PriLOSEC OTC] 20 mg PO DAILY PRN PRN Reason: Heartburn Torsemide [Demadex] 20 mg PO DAILY #30 tab Atorvastatin [Lipitor] 40 mg PO HS #90 tab Carvedilol [Coreg] 3.125 mg PO BID glipiZIDE [Glucotrol] 5 mg PO AC-BID Midodrine [ProAmatine] 5 mg PO AC-TID PRN PRN Reason: Blood Pressure - High Discharge Medication List Digoxin [Digitek] 125 mcg PO HS 03/24/18 [History] Rivaroxaban [Xarelto] 15 mg PO HS 03/24/18 [History] metFORMIN HCL [Glucophage] 850 mg PO BID 03/24/18 [History] Ammonium Lactate Lotion [Lac-Hydrin 12% Lotion] 1 applic TOPICAL DAILY PRN 05/29/20 [History] Isosorbide Mononitrate ER [Imdur] 60 mg PO DAILY 05/29/20 [History] Multivit-Min/FA/Lycopen/Lutein [Centrum Silver Tablet] 1 tab PO DAILY 05/29/20 [History] Omeprazole Magnesium [PriLOSEC OTC] 20 mg PO DAILY PRN 05/29/20 [History] Saw Homer 450mg 450 mg PO BID 05/29/20 [History] Atorvastatin [Lipitor] 40 mg PO HS #90 tab 06/03/20 [Rx] Torsemide [Demadex] 20 mg PO DAILY #30 tab 06/03/20 [Rx] Carvedilol [Coreg] 3.125 mg PO BID 06/06/20 [History] Midodrine [ProAmatine] 5 mg PO AC-TID PRN 06/06/20 [History] glipiZIDE [Glucotrol] 5 mg PO AC-BID 06/06/20 [History] Follow up Appointment(s)/Referral(s): Rad Mar MD [Primary Care Provider] - 1-2 days Discharge Disposition: - Preliminary Cause of Preliminary Cause of : Respiratory failure, advanced IPF, coronary artery disease, ischemic cardio
--- NOTE | 2020-06-08 07:52 | CDI ---
Documentation Clarification Form Date: 06/08/20 From: Daisha Patterson Phone: If you have a question about this query, please contact Melody Gates, Construction Mgr at [phone] between 8am and 5pm. Admit Date: 06/06/20 Discharge Date: 06/06/20 Patient Name: CARLTON GUERRERO Visit Number: [id number] ATTENTION: The Clinical Documentation Specialists (CDI) and [facility] Coding Staff appreciate your assistance in clarifying documentation. Please respond to the clarification below the line at the bottom and electronically sign. The CDI & [facility] Coding staff will review the response and follow-up if needed. Please note: Queries are made part of the Legal Health Record. If you have any questions, please contact the author of this message via ITS. Dear Dr. Rad Mar, Discharge summary states cause of : respiratory failure. He went into cardiac arrest and was intubated/mechanical ventilation. History/Risk Factors: IPF, sepsis, pancreatitis, acute cholecystitis w cholelithiasis, acidosis, HTN w chronic systolic CHF, VALERIA, persistent atrial fib Tobacco use: history of smoking Home oxygen: yes Clinical Indicators: Developed respiratory arrest followed by cardiac arrest, CPR and intubation. Vital signs: T-97.6, P-29, R-24, BP-54/39, O2 SAT 25 Lung/Breathing assessment: Rhonchi coarse , diminished, crackles ABG/CBG: pH-7.18 pO2-282, pCO2-45, Lactate-2.6/2.1/2.9/11.1 Treatment: Continuous Pulse ox: 95/99/97/38/3//40/// In your professional opinion, can you please clarify if these findings signify one of the following conditions? Acute Respiratory Failure Acute on Chronic Respiratory Failure Chronic Respiratory Failure Other Diagnosis, please specify Unable to determine Specificity: If known, further specify (if known): With hypercapnia? (pCO2 >50 and pH <7.35) With hypoxia? (pO2 <60 mm Hg or SpO2 <91% on room air) Acute respiratory failure on the top of chronic with the hypoxemia associated with advanced pulmonary fibrosis of the lung MTDD
--- NOTE | 2020-06-08 08:01 | CDI ---
Documentation Clarification Form Date: 06/08/20 From: Daisha Patterson Phone: If you have a question about this query, please contact Melody Gates, Washer Blanket at [phone] between 8am and 5pm. Admit Date: 06/06/20 Discharge Date: 06/06/20 Patient Name: CARLTON GUERRERO Visit Number: [id number] ATTENTION: The Clinical Documentation Specialists (CDI) and [facility] Coding Staff appreciate your assistance in clarifying documentation. Please respond to the clarification below the line at the bottom and electronically sign. The CDI & [facility] Coding staff will review the response and follow-up if needed. Please note: Queries are made part of the Legal Health Record. If you have any questions, please contact the author of this message via ITS. Dear Dr. Rad Mar, Chronic kidney disease is documented in the past medical history in the ED Note, Consults and H&P. History/Risk Factors: No historical data Clinical Indicators: Current BUN: 56/55 Current CR: 0.93/1.16 Current GFR: 75/58 Treatment: IV fluids, Midorine, IV Sod Bicarb, IV Vasopressin, In order to capture the severity of condition, please clarify the stage of the CKD, if known: CKD ruled out CKD Stage 1 (GFR > 90) CKD Stage 2 (GFR 60-89) CKD Stage 3 (GFR 30-59) CKD Stage 4 (GFR 15-29) CKD Stage 5 (GFR <15) ESRD Other, please specify Unable to determine CKG stage 2-3 MTDD
--- NOTE | 2020-06-08 08:17 | CDI ---
Documentation Clarification Form Date: 06/08/20 From: Daisha Patterson Phone: If you have a question about this query, please contact Melody Gates, Radiopharmacist at [phone] between 8am and 5pm. Admit Date: 06/06/20 Discharge Date: 06/06/20 Patient Name: CARLTON GUERRERO Visit Number: [id number] ATTENTION: The Clinical Documentation Specialists (CDI) and [facility] Coding Staff appreciate your assistance in clarifying documentation. Please respond to the clarification below the line at the bottom and electronically sign. The CDI & [facility] Coding staff will review the response and follow-up if needed. Please note: Queries are made part of the Legal Health Record. If you have any questions, please contact the author of this message via ITS. Dear Dr. Rad Mar, Per the DS the patient had possible sepsis started on antibiotic with the underlying probable cholecystitis and cholelithiasis. Per H&P underlying sepsis and hypotension and patient started on Midodrin. History/Risk Factors: IPF, pancreatitis, acute cholecystitis w cholelithiasis, acidosis, HTN w chronic systolic CHF, VALERIA, persistent atrial fib Lactic acid: 2.6/2.1/2.9/11.1 BP: 98/66, 108/76, 143/101, 143/101, 89/29, 89/29, 66/42, 123/100, 46/29, 40/23, 54/39, 71/53 Other Clinical Indicators: Treatment: IV Vasopressin, Midodrine, IV Sod Bicarb Syr 8.4% IV Bolus: Sodium chloride 0.9% 500ml, In your professional opinion, please clarify if septic shock occurred: Condition Severe Sepsis Septic Shock Shock, please specify type Other, please specify Unable to determine MTDD
== END 2020-06-06 21:40 | disposition expired | DRG 871 ==
LOC: EC 10:24 → 1SOBS 13:20 → 2SICU 18:28 → OBSVTOIN 20:54 → UNDODISOB 21:40
PROVIDERS: ADMIT Internal Medicine; ATTEND Internal Medicine
PROC: 5A12012 Performance of Cardiac Output, Single, Manual (ICD-10-PCS; principal; 2020-06-06)
PROC: 5A1935Z Respiratory Ventilation, Less than 24 Consecutive Hours (ICD-10-PCS; principal; 2020-06-06)
PROC: 0BH17EZ Insertion of Endotracheal Airway into Trachea, Via Natural or Artificial Opening (ICD-10-PCS; principal; 2020-06-06)
PROC: 5A12012 Performance of Cardiac Output, Single, Manual (ICD-10-PCS; 2020-06-06)
PROC: 3E033XZ Introduction of Vasopressor into Peripheral Vein, Percutaneous Approach (ICD-10-PCS; 2020-06-06)
PROC: 0D9670Z Drainage of Stomach with Drainage Device, Via Natural or Artificial Opening (ICD-10-PCS; 2020-06-06)
DX: A41.9 Sepsis, unspecified organism (principal); K85.90 Acute pancreatitis without necrosis or infection, unspecified; J96.21 Acute and chronic respiratory failure with hypoxia; I21.4 Non-ST elevation (NSTEMI) myocardial infarction; K80.00 Calculus of gallbladder with acute cholecystitis without obstruction; E87.2 Acidosis; I13.0 Hypertensive heart and chronic kidney disease with heart failure and stage 1 through stage 4 chronic kidney disease, or unspecified chronic kidney disease; I48.19 Other persistent atrial fibrillation; I50.22 Chronic systolic (congestive) heart failure; I46.9 Cardiac arrest, cause unspecified; I95.9 Hypotension, unspecified; J84.112 Idiopathic pulmonary fibrosis; J84.10 Pulmonary fibrosis, unspecified; E11.22 Type 2 diabetes mellitus with diabetic chronic kidney disease; I71.2 Thoracic aortic aneurysm, without rupture; N18.2 Chronic kidney disease, stage 2 (mild); Z66 Do not resuscitate; Z20.828 Contact with and (suspected) exposure to other viral communicable diseases; R04.1 Hemorrhage from throat; I25.5 Ischemic cardiomyopathy; I08.1 Rheumatic disorders of both mitral and tricuspid valves; I25.10 Atherosclerotic heart disease of native coronary artery without angina pectoris; E78.5 Hyperlipidemia, unspecified; R79.1 Abnormal coagulation profile; I25.2 Old myocardial infarction; M19.90 Unspecified osteoarthritis, unspecified site; Z99.81 Dependence on supplemental oxygen; Z79.01 Long term (current) use of anticoagulants; Z79.84 Long term (current) use of oral hypoglycemic drugs; Z79.899 Other long term (current) drug therapy; Z85.828 Personal history of other malignant neoplasm of skin; Z98.890 Other specified postprocedural states; Z90.89 Acquired absence of other organs; Z87.891 Personal history of nicotine dependence; Z98.42 Cataract extraction status, left eye; Z98.41 Cataract extraction status, right eye; Z87.828 Personal history of other (healed) physical injury and trauma; Z87.19 Personal history of other diseases of the digestive system; Z87.11 Personal history of peptic ulcer disease; Z91.048 Other nonmedicinal substance allergy status
CPT/HCPCS: 36415; 36600; 71045; 71046; 74018; 76705; 80053; 81001; 82150; 82805; 83605; 83690; 83735; 84100; 85025; 85610; 85730; 92950; 93005; 94002; 96361; 96374; 96375; 99285